=== PATIENT | female | born 1950 | race Caucasian/White ===

== ENCOUNTER 2020-06-16 06:02 | Outpatient (REF) | payer MEDICARE, SELFPAY ==
[2020-06-16 11:40] LABS: Hematocrit 42.4 % (37-47); Hemoglobin 14.1 g/dl (12.0-16.0); Mean Corpuscular HGB Conc 33.3 g/dl (31.0-35.0); Mean Corpuscular Hemoglobin 32.2 pg (27.0-33.0); Mean Corpuscular Volume 96.8 fL (80-98); Mean Platelet Volume 10.2 fL (9.4-12.3); Platelet Count 224 X10*3/uL (160-400); Red Blood Count 4.38 X10*6/uL (4.20-5.50); White Blood Count 5.4 X10*3/uL (4.8-10.8)
[2020-06-16 11:45] LABS: Glucose Urine UA NEG (NEG); Leukocyte Esterase Urine 1+ (NEG); Nitrite Urine NEG (NEG); Specific Gravity - Urine 1.015 (1.005-1.025); Urine Blood NEG (NEG); Urine Ketones NEG (NEG); Urine Protein NEG (NEG-TRACE)
[2020-06-16 11:49] LABS: Alanine Aminotransferase 30 U/L (0-31); Albumin Level 4.3 g/dL (3.5-5.0); Alkaline Phosphatase 81 U/L (39-117); Anion Gap 11 (12-20); Aspartate Amino Transferase 26 U/L (5-31); Bilirubin Total 0.7 mg/dL (0.0-1.0); Blood Urea Nitrogen 16 mg/dL (9-16); Calcium 9.3 mg/dL (8.4-10.2); Carbon Dioxide 33 mmol/L (22-29); Chloride 104 mmol/L (96-108); Cholesterol 214 mg/dL; Estimated Glomerular Filt Rate > 60; Glucose Fasting 99 mg/dL (60-99); HDL Cholesterol 48 mg/dL; LDL Cholesterol Calculated 121 mg/dl; Potassium 4.1 mmol/L (3.3-5.1); Sodium 144 mmol/L (135-145); Total Protein 6.6 g/dL (6.5-8.0); Triglycerides 226 mg/dL
[2020-06-16 11:54] LABS: Appearance Urine CLEAR; Color Urine YELLOW
[2020-06-16 12:02] LABS: Mucus Urine 1+ /LPF; RBC Urine 0 /HPF (0); Renal Epithelial Cells Urine 1+ /LPF; Squamous Epithelial Cell Urine 1+ /LPF
[2020-06-16 12:03] LABS: TSH reflex Free T4 0.78 uIU/mL (0.32-4.0)
== END 2020-06-16 06:03 | disposition home or self-care (01) ==
LOC: HO.HMGCLDS 06:02
PROVIDERS: PCP Internal Medicine; Visit Provider Internal Medicine
DX: Z00.00 Encounter for general adult medical examination without abnormal findings (principal); E78.5 Hyperlipidemia, unspecified
CPT/HCPCS: 36415; 80053; 80061; 81001; 84443; 85027

== ENCOUNTER 2020-07-11 07:19 | Outpatient (REF) | payer MEDICARE, SELFPAY ==
--- NOTE | ~2020-07-11 | MM_ITS ---
EXAMINATION: MM SCREENING DIGITAL BREAST TOMOSYNTHESIS, BILATERAL CLINICAL INFORMATION: Screening. Asymptomatic. The lifetime risk of breast cancer based on the Tyrer-Cuzick Model is 3%. COMPARISON: Mammography: 11/17/2018, 09/06/2017, 06/11/2016 TECHNIQUE: Digital breast tomosynthesis is performed in both the craniocaudal and mediolateral oblique views along with computer-aided detection (CAD). Synthesized 2D images are generated from the tomosynthesis. FINDINGS: There are scattered areas of fibroglandular density (ACR BI-RADS breast composition Category b). There are no significant masses, abnormal calcifications, or other abnormalities. Parenchymal pattern is similar to prior studies. There is no developing density. The axilla and skin contours are unremarkable. MM/MM tomosynthesis screening BI IMPRESSION: No mammographic evidence of malignancy. ASSESSMENT: BI-RADS 1: Negative RECOMMENDATION: Routine annual mammography screening. This patient's information was entered into a reminder system with a target due date for their next mammogram.
== END 2020-07-11 07:20 | disposition home or self-care (01) ==
LOC: HO.MAMMO 07:19
PROVIDERS: PCP Internal Medicine; Visit Provider Internal Medicine
DX: Z12.31 Encounter for screening mammogram for malignant neoplasm of breast (principal)
CPT/HCPCS: 77063; 77067

== ENCOUNTER 2020-12-21 06:11 | Outpatient (REF) | payer MEDICARE, SELFPAY ==
[2020-12-21 11:32] LABS: Appearance Urine CLEAR; Color Urine YELLOW; Glucose Urine UA NEG (NEG); Leukocyte Esterase Urine 1+ (NEG); Nitrite Urine NEG (NEG); Urine Blood NEG (NEG); Urine Ketones NEG (NEG); Urine Protein NEG (NEG-TRACE)
[2020-12-21 11:54] LABS: Alanine Aminotransferase 23 U/L (0-31); Albumin Level 4.7 g/dL (3.5-5.0); Alkaline Phosphatase 88 U/L (39-117); Anion Gap 14 (12-20); Aspartate Amino Transferase 27 U/L (5-31); Bilirubin Total 1.1 mg/dL (0.0-1.0); Blood Urea Nitrogen 18 mg/dL (9-16); Calcium 9.8 mg/dL (8.4-10.2); Carbon Dioxide 29 mmol/L (22-29); Chloride 103 mmol/L (96-108); Cholesterol 206 mg/dL; Estimated Glomerular Filt Rate > 60; Glucose Fasting 93 mg/dL (60-99); HDL Cholesterol 54 mg/dL; LDL Cholesterol Calculated 129 mg/dl; Potassium 4.4 mmol/L (3.3-5.1); Sodium 142 mmol/L (135-145); Total Protein 7.3 g/dL (6.5-8.0); Triglycerides 117 mg/dL
[2020-12-21 12:16] LABS: WBC Clumps Urine NOTED
[2020-12-21 12:20] LABS: RBC Urine 0-2 /HPF (0); Renal Epithelial Cells Urine 1+ /LPF; Squamous Epithelial Cell Urine TRACE /LPF
== END 2020-12-21 06:12 | disposition home or self-care (01) ==
LOC: HO.HMGCLDS 06:11
PROVIDERS: PCP Internal Medicine; Visit Provider Internal Medicine
DX: E78.5 Hyperlipidemia, unspecified (principal); I10 Essential (primary) hypertension
CPT/HCPCS: 36415; 80053; 80061; 81001

== ENCOUNTER 2021-01-30 14:50 | Outpatient (REF) | payer MEDICARE, SELFPAY ==
--- NOTE | ~2021-01-30 | MM_ITS ---
EXAMINATION: BONE DENSITOMETRY CLINICAL INDICATION: Asymptomatic menopausal state. COMPARISON: Baseline BD dated 08/29/2011. TECHNIQUE: Using a Efficiency Exchange DXA System (software version: 13.1) manufactured by [employer], dual-energy x-ray absorptiometry was performed of the lumbar spine and left hip. The images are of good technical quality. Summary results are attached. FINDINGS: AP SPINE L1-L4: Current: BMD 1.021 g/cm2, Z-score 0.9, T-score -1.3, osteopenia, 0.4% increase from baseline (<5% change is not significant). Baseline: BMD 1.017 g/cm2. LEFT FEMUR, NECK: Current: BMD 0.655 g/cm2, Z-score -0.6, T-score -2.8, osteoporosis. Baseline: BMD 0.690 g/cm2. LEFT FEMUR, TOTAL: Current: BMD 0.717 g/cm2, Z-score -0.4, T-score -2.3, osteopenia, 3.4% decrease from baseline (<5% change is not significant). Baseline: BMD 0.742 g/cm2. IDENTIFIED RISK FACTORS: Menopause, hysterectomy, bilateral oophorectomy. HISTORY OF FRACTURE: None listed. MEDICATIONS: Vitamin D. MM/XR DEXA axial skeleton IMPRESSION: 1. DIAGNOSIS: Osteoporosis based on the lowest T-score value of -2.8 in the femoral neck applying World Health Organization criteria. 2. 10-YEAR FRACTURE RISK PREDICTION, FRAX: According to the guidelines, FRAX calculation should only be performed on patients in the osteopenia bone density category. 3. Treatment Recommendations: NOF guidelines recommend consideration for treatment in postmenopausal women and men age 50 and older presenting with the following: -A hip or vertebral (clinical or morphometric) fracture. -T-score less than or equal to -2.5 at the femoral neck or spine after appropriate evaluation to exclude secondary causes. -Low bone mass at the hip or spine and a 10-year fracture probability by FRAX of greater than or equal to 3% for hip fracture or greater than or equal to 20% for major osteoporotic fracture based on the [place] adapted WHO algorithm. 4. Other Recommendations: All treatment decisions require clinical judgment and consideration of individual patient factors, including patient preferences, comorbidities, previous drug use, risk factors not captured in the FRAX model (e.g. frailty, falls, vitamin D deficiency, increased bone turnover, interval significant decline in bone density) and possible under or overestimation of fracture risk by FRAX. Additional medical evaluation for secondary cause of low bone mineral density may be appropriate. FUTURE SCAN RECOMMENDATION: People with diagnosed cases of osteoporosis or at high risk for fracture should have regular bone mineral density tests. For patients eligible for Medicare, routine testing is allowed once every 2 years. The testing frequency can be increased to one year for patients who have rapidly progressing disease, those who are receiving or discontinuing medical therapy to restore bone mass, or have additional risk factors.
== END 2021-01-30 14:51 | disposition home or self-care (01) ==
LOC: HO.MAMMO 14:50
PROVIDERS: Visit Provider Internal Medicine
DX: Z13.820 Encounter for screening for osteoporosis (principal); M81.0 Age-related osteoporosis without current pathological fracture; Z78.0 Asymptomatic menopausal state; Z90.722 Acquired absence of ovaries, bilateral; Z79.899 Other long term (current) drug therapy
CPT/HCPCS: 77080

== ENCOUNTER 2021-03-11 09:03 | Outpatient (REF) | payer MEDICARE, SELFPAY ==
[2021-03-11 09:44] LABS: Binax Internal Control QC Valid; Binax Lot number: 9864; Binax Now Covid-19 Ag Negative (Negative)
== END 2021-03-11 09:04 | disposition home or self-care (01) ==
LOC: HO.LAB 09:03
PROVIDERS: Visit Provider Internal Medicine
DX: Z20.822 Contact with and (suspected) exposure to COVID-19 (principal)
CPT/HCPCS: 36415; C9803

== ENCOUNTER 2021-06-21 06:06 | Outpatient (REF) | payer MEDICARE, SELFPAY ==
[2021-06-21 11:47] LABS: Alanine Aminotransferase 15 U/L (0-31); Albumin Level 4.4 g/dL (3.5-5.0); Alkaline Phosphatase 78 U/L (39-117); Anion Gap 14 (12-20); Aspartate Amino Transferase 20 U/L (5-31); Bilirubin Total 0.8 mg/dL (0.0-1.0); Blood Urea Nitrogen 15 mg/dL (9-16); Calcium 9.8 mg/dL (8.4-10.2); Carbon Dioxide 29 mmol/L (22-29); Chloride 103 mmol/L (96-108); Cholesterol 259 mg/dL; Estimated Glomerular Filt Rate > 60; Glucose Fasting 104 mg/dL (60-99); HDL Cholesterol 52 mg/dL; LDL Cholesterol Calculated 176 mg/dl; Potassium 4.2 mmol/L (3.3-5.1); Sodium 142 mmol/L (135-145); Total Protein 6.9 g/dL (6.5-8.0); Triglycerides 155 mg/dL; Vitamin D 25-OH Total 36.7 ng/mL (>30)
== END 2021-06-21 06:07 | disposition home or self-care (01) ==
LOC: HO.HMGCLDS 06:06
PROVIDERS: Visit Provider Internal Medicine
DX: E55.9 Vitamin D deficiency, unspecified (principal); E78.5 Hyperlipidemia, unspecified; I10 Essential (primary) hypertension
CPT/HCPCS: 36415; 80053; 80061; 82306

== ENCOUNTER 2021-07-12 07:34 | Outpatient (REF) | payer MEDICARE, SELFPAY ==
--- NOTE | ~2021-07-12 | MM_ITS ---
EXAMINATION: MM SCREENING DIGITAL BREAST TOMOSYNTHESIS, BILATERAL CLINICAL INFORMATION: Screening. Asymptomatic. The lifetime risk of breast cancer based on the Tyrer-Cuzick Model is 3.0%. COMPARISON: Mammography: July 11, 2020 and studies dating back to January 11, 2014 TECHNIQUE: Digital breast tomosynthesis is performed in both the craniocaudal and mediolateral oblique views along with computer-aided detection (CAD). Synthesized 2D images are generated from the tomosynthesis. FINDINGS: There are scattered areas of fibroglandular density (ACR BI-RADS breast composition Category b). There are no significant masses, abnormal calcifications, or other abnormalities. MM/MM tomosynthesis screening BI IMPRESSION: There are no significant changes from prior study. ASSESSMENT: BI-RADS 1: Negative RECOMMENDATION: Routine annual mammography screening. This patient's information was entered into a reminder system with a target due date for their next mammogram.
== END 2021-07-12 07:35 | disposition home or self-care (01) ==
LOC: HO.MAMMO 07:34
PROVIDERS: Visit Provider Internal Medicine
DX: Z12.31 Encounter for screening mammogram for malignant neoplasm of breast (principal)
CPT/HCPCS: 77063; 77067

== ENCOUNTER 2021-09-20 06:06 | Outpatient (REF) | payer MEDICARE, SELFPAY ==
[2021-09-20 11:42] LABS: Cholesterol 252 mg/dL; HDL Cholesterol 57 mg/dL; LDL Cholesterol Calculated 179 mg/dl; Triglycerides 81 mg/dL
== END 2021-09-20 06:07 | disposition home or self-care (01) ==
LOC: HO.HMGCLDS 06:06
PROVIDERS: Visit Provider Internal Medicine
DX: E78.5 Hyperlipidemia, unspecified (principal)
CPT/HCPCS: 36415; 80061

== ENCOUNTER 2021-11-23 06:14 | Outpatient (REF) | payer MEDICARE, SELFPAY ==
[2021-11-23 11:25] LABS: Appearance Urine Clear; Color Urine Yellow; Glucose Urine UA Negative (Negative); Leukocyte Esterase Urine Moderate (2+) (Negative); Nitrite Urine Negative (Negative); Specific Gravity - Urine 1.015 (1.005-1.025); UMIC TRIGGER UACC YES; Urine Blood Negative (Negative); Urine Ketones Negative (Negative); Urine Protein Negative (Neg-Trace)
[2021-11-23 11:31] LABS: Bacteria Urine None Seen (None Seen); Hyaline Casts Urine 0-2 /LPF (0-2); RBC Urine 0-2 /HPF (0-2); Squamous Epithelial Cell Urine 0-2 /HPF (0-2); UACC Culture Trigger YES
== END 2021-11-23 06:15 | disposition home or self-care (01) ==
LOC: HO.HMGCLDS 06:14
PROVIDERS: PCP Internal Medicine; Visit Provider Internal Medicine
DX: N89.8 Other specified noninflammatory disorders of vagina (principal); R82.90 Unspecified abnormal findings in urine
CPT/HCPCS: 81001; 87086

== ENCOUNTER 2021-12-21 06:07 | Outpatient (REF) | payer MEDICARE, SELFPAY ==
[2021-12-21 11:42] LABS: Hematocrit 44.7 % (37.0-47.0); Hemoglobin 15.1 g/dl (12.0-16.0); Mean Corpuscular HGB Conc 33.8 g/dl (31.0-35.0); Mean Corpuscular Hemoglobin 32.5 pg (27.0-33.0); Mean Corpuscular Volume 96.1 fL (80.0-98.0); Mean Platelet Volume 10.6 fL (9.4-12.3); Platelet Count 189 X10*3/uL (160-400); Red Blood Count 4.65 X10*6/uL (4.20-5.50); Red Cell Distribution Width 11.8 % (11.0-16.0); White Blood Count 5.4 X10*3/uL (4.8-10.8)
[2021-12-21 12:23] LABS: Alanine Aminotransferase 13 U/L (0-31); Albumin Level 4.5 g/dL (3.5-5.0); Alkaline Phosphatase 80 U/L (39-117); Anion Gap 14 (12-20); Aspartate Amino Transferase 20 U/L (5-31); Bilirubin Total 0.7 mg/dL (0.0-1.0); Blood Urea Nitrogen 17 mg/dL (9-16); Calcium 9.6 mg/dL (8.4-10.2); Carbon Dioxide 31 mmol/L (22-29); Chloride 102 mmol/L (96-108); Cholesterol 215 mg/dL; Estimated Glomerular Filt Rate > 60; Glucose Fasting 102 mg/dL (60-99); HDL Cholesterol 58 mg/dL; LDL Cholesterol Calculated 138 mg/dl; Potassium 4.2 mmol/L (3.3-5.1); Sodium 143 mmol/L (135-145); Total Protein 6.9 g/dL (6.5-8.0); Triglycerides 99 mg/dL
[2021-12-21 12:24] LABS: TSH reflex Free T4 1.22 uIU/mL (0.32-4.0)
== END 2021-12-21 06:08 | disposition home or self-care (01) ==
LOC: HO.HMGCLDS 06:07
PROVIDERS: PCP Internal Medicine; Visit Provider Internal Medicine
DX: E55.9 Vitamin D deficiency, unspecified (principal); E78.5 Hyperlipidemia, unspecified; I10 Essential (primary) hypertension; M81.0 Age-related osteoporosis without current pathological fracture
CPT/HCPCS: 36415; 80053; 80061; 84443; 85027

== ENCOUNTER 2022-01-18 15:27 | Outpatient (REF) | payer MEDICARE, SELFPAY ==
--- NOTE | ~2022-01-18 | US_ITS ---
EXAMINATION: US PELVIS LIMITED (BLADDER) CLINICAL INFORMATION: Retention of urine, unspecified. COMPARISON: None TECHNIQUE: Real-time imaging of the bladder. FINDINGS: BLADDER: Well distended and normal. Bilateral ureteral jets are demonstrated. Prevoid bladder volume is 491 mL. There is no postvoid residual. US/US bladder IMPRESSION: No significant post void residual.
== END 2022-01-18 15:28 | disposition home or self-care (01) ==
LOC: HO.HMGCX 15:27
PROVIDERS: PCP Internal Medicine; Visit Provider Internal Medicine
DX: R33.9 Retention of urine, unspecified (principal)
CPT/HCPCS: 76857

== ENCOUNTER 2022-02-27 13:42 | Outpatient (REF) | payer MEDICARE, SELFPAY ==
[2022-02-27 16:48] LABS: Anion Gap 12 (12-20); Blood Urea Nitrogen 16 mg/dL (9-16); Calcium 9.9 mg/dL (8.4-10.2); Carbon Dioxide 31 mmol/L (22-29); Chloride 102 mmol/L (96-108); Estimated Glomerular Filt Rate > 60; Glucose Random 73 mg/dL (60-115); Magnesium 2.1 mg/dL (1.6-2.6); Potassium 4.1 mmol/L (3.3-5.1); Sodium 141 mmol/L (135-145)
[2022-02-27 17:24] LABS: Folate 17.1 ng/mL (> or = 4.0); Vitamin B12 555 pg/mL (200-900)
== END 2022-02-27 13:43 | disposition home or self-care (01) ==
LOC: HO.HMGCLDS 13:42
PROVIDERS: PCP Internal Medicine; Visit Provider Internal Medicine
DX: I10 Essential (primary) hypertension (principal)
CPT/HCPCS: 36415; 80048; 82607; 82746; 83735

== ENCOUNTER 2022-06-07 15:35 | Emergency (ER) | payer MEDICARE, SELFPAY ==
--- NOTE | ~2022-06-07 | CT_ITS ---
EXAMINATION: CT ABDOMEN AND PELVIS WITH CONTRAST CLINICAL INFORMATION: Abdominal pain COMPARISON: None available. TECHNIQUE: Multidetector volumetric images were obtained from the superior aspect of the liver through the pubic symphysis following administration 85 mL of Omnipaque 350 intravenous contrast. Sagittal and coronal reformatted images were obtained on the technologist's workstation. Oral contrast: Yes This CT examination was performed using dose optimization techniques as appropriate, variously including the following: *Automated exposure control *Adjustment of mA and/or kV according to patient size (this includes techniques or standardized protocols for targeted exams where dose is matched to indication/reason for exam; i.e. extremities or head) *Use of iterative reconstruction technique DLP: 309 mGy-cm FINDINGS: LUNG BASES: The visualized lung bases are unremarkable. LIVER, GALLBLADDER, AND BILIARY TREE: The liver is normal in size, shape, and attenuation. No focal hepatic lesion or biliary ductal dilatation is present. The gallbladder is unremarkable with no evidence of radiopaque gallstones, gallbladder wall thickening, or obvious pericholecystic inflammatory changes. PANCREAS: Unremarkable. SPLEEN: Unremarkable. ADRENAL GLANDS: Unremarkable. KIDNEYS AND URETERS: The kidneys are normal in size, shape, and attenuation. No hydronephrosis, hydroureter, or calculi seen. No perinephric stranding. BLADDER: Unremarkable. GASTROINTESTINAL TRACT: The small and large bowel are unremarkable. The appendix is unremarkable. ABDOMINAL WALL: No significant hernia is appreciated. LYMPH NODES: Normal. VASCULAR: Unremarkable. PELVIC VISCERA: Unremarkable. OSSEOUS STRUCTURES: Degenerative changes of the spine. CT/CT abdomen pelvis w IV con IMPRESSION: Unremarkable exam. Fleischner guidelines were followed.
[2022-06-07 15:39] VITALS: BP 186/84; PULSE 80; RESP 18; TEMP 36.1; O2SAT 99; BMI 21.7
--- NOTE | 2022-06-07 15:40 | ED_ITS ---
HPI - General Adult General Chief complaint: Abdominal Pain <BENJAMIN Ramirez - Last Filed: 06/07/22 15:41> Stated complaint: Abdominal pain <BENJAMIN Ramirez - Last Filed: 06/07/22 15:41> Time Seen by Provider: 06/07/22 19:11 <BENJAMIN Ramirez - Last Filed: 06/07/22 15:41> Source: patient <Edward Bravo MD - Last Filed: 06/07/22 22:31> Mode of arrival: ambulatory <Edward Bravo MD - Last Filed: 06/07/22 22:31> Limitations: no limitations <Edward Bravo MD - Last Filed: 06/07/22 22:31> History of Present Illness HPI narrative: 71-year-old female presents with abdominal pain. The pain is located in left lower quadrant. Does not radiate. It is constant. There is no clear relieving or exacerbating features. It is not associated with nausea vomiting. It is a left associated with loose stool. There has been no blood in the stool. She denies any fevers or chills. The pain is currently at 3/10 but sometimes can get to as high as a 7/10. She was seen at an urgent care center was prescribed Augmentin twice a day for presumptive diverticulitis. She was instructed if her symptoms do not improve after 2 days she should seek attention in the emergency department. <Edward Bravo MD - Last Filed: 06/07/22 22:31> Related Data Home medications: Home Medications Medication Instructions Recorded Confirmed omega-3 fatty acids 1,000 mg 1,000 mg PO DAILY 06/20/20 02/27/22 capsule (Fish Oil Concentrate) red yeast rice PO 06/20/20 02/27/22 cholecalciferol (vitamin D3) 25 25 mcg PO DAILY 06/03/22 mcg (1,000 unit) capsule Previous Rx's Medication Instructions Recorded lisinopril 5 mg tablet 5 mg PO DAILY #90 tabs 06/26/21 omeprazole 20 mg capsule,delayed 20 mg PO BID #180 caps 06/26/21 release ezetimibe 10 mg tablet (Zetia) 10 mg PO DAILY #90 tabs 09/25/21 tolterodine 4 mg capsule,extended 4 mg PO DAILY #90 caps 02/21/22 release 24 hr amoxicillin 875 mg-potassium 1 tab PO BID 7 days #14 tabs 06/03/22 clavulanate 125 mg tablet <BENJAMIN Ramirez - Last Filed: 06/07/22 15:41> Allergies/adverse reactions: Allergies Allergy/AdvReac Type Severity Reaction Status Date / Time carrot [CARROT] Allergy Unknown CAME BACK Verified 06/03/22 15:16 + IN TESTING - ABLE TO EAT THEM egg [EGG] Allergy Unknown DIARRHEA Verified 06/03/22 15:16 petrolatum,white Allergy Unknown SKIN FELT Verified 06/03/22 15:16 [From Petroleum Jelly] LIKE IT WAS ON FIRE latex Allergy rash Verified 06/03/22 15:16 [id number] Reductase AdvReac Intermediate leg pain Verified 06/03/22 15:16 Inhibitor ENVIRONMENTAL Allergy Unknown ITCHY EYES Uncoded 12/27/21 10:33 percocet Allergy Unknown unknown Uncoded 12/27/21 10:33 <BENJAMIN Ramirez - Last Filed: 06/07/22 15:41> [facility] Past Medical History Medical History: Medical History Annual physical exam Dysplastic nevus GERD (gastroesophageal reflux disease) HTN (hypertension) Hyperlipidemia Normal breast exam Osteoporosis Postmenopausal Vitamin D deficiency <BENJAMIN Ramirez - Last Filed: 06/07/22 15:41> Surgical History: Surgical History H/O colonoscopy <BENJAMIN Ramirez - Last Filed: 06/07/22 15:41> Social History Social History: Social History Housing: House Alcohol intake: never Patient Tobacco Use Status: Never used Tobacco Smoked in Last 30 Days: No e-Cigarette/Vaping Use: Never Used Use of substances other than those prescribed or required for medical reasons: No Advance Directives: No Advance Directives Information Provided: No Current occupational status: employed Cognitive needs: No Hearing needs: No Vision needs: Yes <BENJAMIN Ramirez - Last Filed: 06/07/22 15:41> Physical Exam ED Vital Signs: Vital Signs - 24 hr 06/07/22 15:39 06/07/22 19:04 06/07/22 22:00 Temperature 96.9 F 98.8 F Pulse Rate 80 70 67 Respiratory Rate 18 16 16 Blood Pressure 186/84 H 169/83 H 139/74 Pulse Oximetry 99 100 97 Oxygen Delivery Method Room Air Room Air Room Air BMI result Body Mass Index 21.7 <BENJAMIN Ramirez - Last Filed: 06/07/22 15:41> Vital Signs - 24 hr 06/07/22 15:39 06/07/22 19:04 06/07/22 22:00 Temperature 96.9 F 98.8 F Pulse Rate 80 70 67 Respiratory Rate 18 16 16 Blood Pressure 186/84 H 169/83 H 139/74 Pulse Oximetry 99 100 97 Oxygen Delivery Method Room Air Room Air Room Air BMI result Body Mass Index 21.7 <Edward Bravo MD - Last Filed: 06/07/22 22:31> GEN: Well developed, no acute distress, alert, oriented HEENT: Normocephalic, atraumatic, normal external ears, nose appears normal, no oropharyngeal edema or exudates Eyes: Normal to appearance Neck: Supple, no lymphadenopathy Respiratory: Talks in complete sentences, no respiratory distress, clear to auscultation bilaterally Cardiovascular: Regular rate and rhythm, no murmurs rubs or gallops Abdomen: Left lower quadrant tenderness no rebound or guarding Back: No CVA tenderness Extremities: No clubbing cyanosis or edema Neurologic: No focal neurologic deficits, cranial nerves 2-12 intact, strength is 5/5 bilaterally, gait normal Skin: No rash <Edward Bravo MD - Last Filed: 06/07/22 22:31> Course Course Course Narrative: RME performed by Giulia Abarca PA-C. Patient is a 71 year old assigned female at presenting to the emergency department with abdominal pain. Labs and imaging ordered. Patient placed back in the waiting room pending room av ailability and results. <BENJAMIN Ramirez - Last Filed: 06/07/22 15:41> Reevaluation(s) Reevaluation #1: Currently awaiting CT scan results. Lab test and urinalysis. <Edward Bravo MD - Last Filed: 06/07/22 22:31> Time: 20:27 <Edward Bravo MD - Last Filed: 06/07/22 22:31> Reevaluation #2: CT scan results were in. There is no evidence of inflammatory or infectious process. Patient will stop oral antibiotics, start probiotic and fiber supplementation. Patient will follow-up with the primary care provider sometime this week and return for any worsening or concerning symptoms. <dEward Bravo MD - Last Filed: 06/07/22 22:31> Time: 22:30 <Edward Bravo MD - Last Filed: 06/07/22 22:31> Medications Administered Discontinued Medications Generic Name Dose Route Start Last Admin Trade Name Freq PRN Reason Stop Dose Admin Iohexol 100 ml 06/07/22 19:42 06/07/22 19:42 Iohexol 350 Mg/Ml 100 Ml Infus..Btl IV 06/07/22 19:43 85 ml ONCE ONE Administration <BENJAMIN Ramirez - Last Filed: 06/07/22 15:41> Medications Administered Discontinued Medications Generic Name Dose Route Start Last Admin Trade Name Freq PRN Reason Stop Dose Admin Iohexol 100 ml 06/07/22 19:42 06/07/22 19:42 Iohexol 350 Mg/Ml 100 Ml Infus..Btl IV 06/07/22 19:43 85 ml ONCE ONE Administration <Edward Bravo MD - Last Filed: 06/07/22 22:31> Medical Decision Making Medical Decision Making [facility] Narrative: Patient presents with left lower quadrant abdominal pain. Broad differe ntial diagnosis been considered. Patient will have a CT scan, laboratory analysis, analgesics as needed. Re-evaluate patient <Edward Bravo MD - Last Filed: 06/07/22 22:31> Differential Diagnosis Differential Diagnoses: The differential diagnosis associated with the presentation includes (Div erticulitis, colitis, IBS, IBD, perforation, abscess, epiploic appendagitis, mesenteric adenitis, gastroenteritis, peptic ulcer, cholecystitis, pancreatitis) <Edward Bravo MD - Last Filed: 06/07/22 22:31> Acute abdominal pain, diverticulosis <Edward Bravo MD - Last Filed: 06/07/22 22:31> Admission/Observation Consideration of admission/observation: Escalation of care including admission/observation considered <Edward medina MD - Last Filed: 06/07/22 22:31> Lab Data [facility] Lab Attestation statement: I reviewed the patient's lab results. <Edward Bravo MD - Last Filed: 06/07/22 22:31> Result Diagrams: 06/07/22 15:47 06/07/22 15:47 <BENJAMIN Ramirez - Last Filed: 06/07/22 15:41> Labs: Lab Results 06/07/22 06/07/22 06/07/22 Range/Units 15:47 15:47 15:47 WBC 5.9 (4.8-10.8) X10*3/uL RBC 4.42 (4.20-5.50) X10*6/uL Hgb 14.7 (12.0-16.0) g/dl Hct 41.8 (37.0-47.0) % MCV 94.6 (80.0-98.0) fL MCH 33.3 H (27.0-33.0) pg MCHC 35.2 H (31.0-35.0) g/dl RDW 11.8 (11.0-16.0) % Plt Count 179 (160-400) X10*3/uL MPV 10.0 (9.4-12.3) fL Immature Gran % (Auto) 0.2 (0.0-0.4) % Neut % (Auto) 63.2 (45-73) % Lymph % (Auto) 26.1 (20-40) % [place] % (Auto) 8.1 (2-11) % Eos % (Auto) 1.7 (0-4) % Baso % (Auto) 0.7 (0-2) % Lymph # (Auto) 1.5 (1.2-4.9) X10*3/uL [place] # (Auto) 0.5 (0.1-1.2) X10*3/uL Eos # (Auto) 0.1 (0.0-0.4) X10*3/uL Baso # (Auto) 0.0 (0.0-0.2) X10*3/uL Abs Immat Gran (auto) 0.01 (0.00-0.03) X10*3/uL Absolute Neuts (auto) 3.7 (2.0-8.3) x10*3/uL Absolute Nucleated RBC 0.000 (0.0-0.012) X10*3/uL Nucleated RBC % (auto) 0.0 (0.0-0.2) /100WBC Sodium 144 (135-145) mmol/L Potassium 4.1 (3.3-5.1) mmol/L Chloride 104 (96-108) mmol/L Carbon Dioxide 28 (22-29) mmol/L Anion Gap 16 (12-20) BUN 12 (9-16) mg/dL Creatinine 0.63 (0.5-1.4) mg/dL Estim Creat Clear Calc 52.1 Estimated GFR > 60 Random Glucose 91 (60-115) mg/dL Calcium 9.6 (8.4-10.2) mg/dL Magnesium 2.0 (1.6-2.6) mg/dL Total Bilirubin 0.7 (0.0-1.0) mg/dL AST 22 (5-31) U/L ALT 17 (0-31) U/L Alkaline Phosphatase 77 (39-117) U/L Total Protein 6.9 (6.5-8.0) g/dL Albumin 4.6 (3.5-5.0) g/dL Urine Color Urine Appearance Urine pH (5.0-9.0) Ur Specific O'Brien (1.005-1.025) Urine Protein (Neg-Trace) mg/dL Urine Glucose (UA) (Negative) mg/dL Urine Ketones (Negative) mg/dL Urine Blood (Negative) Urine Nitrite (Negative) Ur Leukocyte Esterase (Negative) COVID-19 (AJITH) Negative (Negative) COVID-19 Clin Com See Note 06/07/22 Range/Units 19:52 WBC (4.8-10.8) X10*3/uL RBC (4.20-5.50) X10*6/uL Hgb (12.0-16.0) g/dl Hct (37.0-47.0) % MCV (80.0-98.0) fL MCH (27.0-33.0) pg MCHC (31.0-35.0) g/dl RDW (11.0-16.0) % Plt Count (160-400) X10*3/uL MPV (9.4-12.3) fL Immature Gran % (Auto) (0.0-0.4) % Neut % (Auto) (45-73) % Lymph % (Auto) (20-40) % [place] % (Auto) (2-11) % Eos % (Auto) (0-4) % Baso % (Auto) (0-2) % Lymph # (Auto) (1.2-4.9) X10*3/uL [place] # (Auto) (0.1-1.2) X10*3/uL Eos # (Auto) (0.0-0.4) X10*3/uL Baso # (Auto) (0.0-0.2) X10*3/uL Abs Immat Gran (auto) (0.00-0.03) X10*3/uL Absolute Neuts (auto) (2.0-8.3) x10*3/uL Absolute Nucleated RBC (0.0-0.012) X10*3/uL Nucleated RBC % (auto) (0.0-0.2) /100WBC Sodium (135-145) mmol/L Potassium (3.3-5.1) mmol/L Chloride (96-108) mmol/L Carbon Dioxide (22-29) mmol/L Anion Gap (12-20) BUN (9-16) mg/dL Creatinine (0.5-1.4) mg/dL Estim Creat Clear Calc Estimated GFR Random Glucose (60-115) mg/dL Calcium (8.4-10.2) mg/dL Magnesium (1.6-2.6) mg/dL Total Bilirubin (0.0-1.0) mg/dL AST (5-31) U/L ALT (0-31) U/L Alkaline Phosphatase (39-117) U/L Total Protein (6.5-8.0) g/dL Albumin (3.5-5.0) g/dL Urine Color Yellow Urine Appearance Clear Urine pH 7.5 (5.0-9.0) Ur Specific O'Brien 1.025 (1.005-1.025) Urine Protein Negative (Neg-Trace) mg/dL Urine Glucose (UA) Negative (Negative) mg/dL Urine Ketones Negative (Negative) mg/dL Urine Blood Negative (Negative) Urine Nitrite Negative (Negative) Ur Leukocyte Esterase Negative (Negative) COVID-19 (AJITH) (Negative) COVID-19 Clin Com <BENJAMIN Ramirez - Last Filed: 06/07/22 15:41> Lab Results 06/07/22 06/07/22 06/07/22 Range/Units 15:47 15:47 15:47 WBC 5.9 (4.8-10.8) X10*3/uL RBC 4.42 (4.20-5.50) X10*6/uL Hgb 14.7 (12.0-16.0) g/dl Hct 41.8 (37.0-47.0) % MCV 94.6 (80.0-98.0) fL MCH 33.3 H (27.0-33.0) pg MCHC 35.2 H (31.0-35.0) g/dl RDW 11.8 (11.0-16.0) % Plt Count 179 (160-400) X10*3/uL MPV 10.0 (9.4-12.3) fL Immature Gran % (Auto) 0.2 (0.0-0.4) % Neut % (Auto) 63.2 (45-73) % Lymph % (Auto) 26.1 (20-40) % [place] % (Auto) 8.1 (2-11) % Eos % (Auto) 1.7 (0-4) % Baso % (Auto) 0.7 (0-2) % Lymph # (Auto) 1.5 (1.2-4.9) X10*3/uL [place] # (Auto) 0.5 (0.1-1.2) X10*3/uL Eos # (Auto) 0.1 (0.0-0.4) X10*3/uL Baso # (Auto) 0.0 (0.0-0.2) X10*3/uL Abs Immat Gran (auto) 0.01 (0.00-0.03) X10*3/uL Absolute Neuts (auto) 3.7 (2.0-8.3) x10*3/uL Absolute Nucleated RBC 0.000 (0.0-0.012) X10*3/uL Nucleated RBC % (auto) 0.0 (0.0-0.2) /100WBC Sodium 144 (135-145) mmol/L Potassium 4.1 (3.3-5.1) mmol/L Chloride 104 (96-108) mmol/L Carbon Dioxide 28 (22-29) mmol/L Anion Gap 16 (12-20) BUN 12 (9-16) mg/dL Creatinine 0.63 (0.5-1.4) mg/dL Estim Creat Clear Calc 52.1 Estimated GFR > 60 Random Glucose 91 (60-115) mg/dL Calcium 9.6 (8.4-10.2) mg/dL Magnesium 2.0 (1.6-2.6) mg/dL Total Bilirubin 0.7 (0.0-1.0) mg/dL AST 22 (5-31) U/L ALT 17 (0-31) U/L Alkaline Phosphatase 77 (39-117) U/L Total Protein 6.9 (6.5-8.0) g/dL Albumin 4.6 (3.5-5.0) g/dL Urine Color Urine Appearance Urine pH (5.0-9.0) Ur Specific O'Brien (1.005-1.025) Urine Protein (Neg-Trace) mg/dL Urine Glucose (UA) (Negative) mg/dL Urine Ketones (Negative) mg/dL Urine Blood (Negative) Urine Nitrite (Negative) Ur Leukocyte Esterase (Negative) COVID-19 (AJITH) Negative (Negative) COVID-19 Clin Com See Note 06/07/22 Range/Units 19:52 WBC (4.8-10.8) X10*3/uL RBC (4.20-5.50) X10*6/uL Hgb (12.0-16.0) g/dl Hct (37.0-47.0) % MCV (80.0-98.0) fL MCH (27.0-33.0) pg MCHC (31.0-35.0) g/dl RDW (11.0-16.0) % Plt Count (160-400) X10*3/uL MPV (9.4-12.3) fL Immature Gran % (Auto) (0.0-0.4) % Neut % (Auto) (45-73) % Lymph % (Auto) (20-40) % [place] % (Auto) (2-11) % Eos % (Auto) (0-4) % Baso % (Auto) (0-2) % Lymph # (Auto) (1.2-4.9) X10*3/uL [place] # (Auto) (0.1-1.2) X10*3/uL Eos # (Auto) (0.0-0.4) X10*3/uL Baso # (Auto) (0.0-0.2) X10*3/uL Abs Immat Gran (auto) (0.00-0.03) X10*3/uL Absolute Neuts (auto) (2.0-8.3) x10*3/uL Absolute Nucleated RBC (0.0-0.012) X10*3/uL Nucleated RBC % (auto) (0.0-0.2) /100WBC Sodium (135-145) mmol/L Potassium (3.3-5.1) mmol/L Chloride (96-108) mmol/L Carbon Dioxide (22-29) mmol/L Anion Gap (12-20) BUN (9-16) mg/dL Creatinine (0.5-1.4) mg/dL Estim Creat Clear Calc Estimated GFR Random Glucose (60-115) mg/dL Calcium (8.4-10.2) mg/dL Magnesium (1.6-2.6) mg/dL Total Bilirubin (0.0-1.0) mg/dL AST (5-31) U/L ALT (0-31) U/L Alkaline Phosphatase (39-117) U/L Total Protein (6.5-8.0) g/dL Albumin (3.5-5.0) g/dL Urine Color Yellow Urine Appearance Clear Urine pH 7.5 (5.0-9.0) Ur Specific O'Brien 1.025 (1.005-1.025) Urine Protein Negative (Neg-Trace) mg/dL Urine Glucose (UA) Negative (Negative) mg/dL Urine Ketones Negative (Negative) mg/dL Urine Blood Negative (Negative) Urine Nitrite Negative (Negative) Ur Leukocyte Esterase Negative (Negative) COVID-19 (AJITH) (Negative) COVID-19 Clin Com <Edward Barvo MD - Last Filed: 06/07/22 22:31> Independent Interpretation I performed an independent interpretation of an: CT Scan (Diverticulosis without evidence of diverticulitis) <Edward Bravo MD - Last Filed: 06/07/22 22:31> Radiology Impression Discussion of test interpretation with radiology: I have reviewed the radiologist's reading. ( CT/CT abdomen pelvis w IV con IMPRESSION: Unremarkable exam. Fleischner guidelines were followed. Dictated By:Tash Ruiz MDSigned By:<Electronically signed by Tash Ruiz MD in [place]>06/07/[id number]) <Edward Bravo MD - Last Filed: 06/07/22 22:31> Tests considered The following testing was considered but not selected: Ultrasound of the abdomen <Edward Bravo MD - Last Filed: 06/07/22 22:31> Prescription Management I considered prescription management with: Pain Medication and Antibiotic <Edward Bravo MD - Last Filed: 06/07/22 22:31> Discharge Plan Discharge Clinical Impression: Abdominal pain <BENJAMIN Ramirez - Last Filed: 06/07/22 15:41> Patient Disposition: Home, Self-Care <BENJAMIN Ramirez - Last Filed: 06/07/22 15:41> Instructions: Abdominal Pain (ED) <BENJAMIN Ramirez - Last Filed: 06/07/22 15:41> Additional Instructions: He received today with abdominal pain in the left lower quadrant. Your additionally noted to have loose stool. I am recommending fiber supplementation with something like Metamucil, Citrucel, Benefiber. Additionally, he could try rice and bananas. Keep yourself appropriately hydrated. He may also want to start a probiotic. Probiotics that I would recommend include acidophilus or lactobacillus. <BENJAMIN Ramirez - Last Filed: 06/07/22 15:41> Prescriptions: No Action ezetimibe [Zetia] 10 mg tablet 10 mg PO DAILY Qty: 90 3RF tolterodine 4 mg capsule,extended release 24hr 4 mg PO DAILY Qty: 90 3RF red yeast rice PO omega-3 fatty acids [Fish Oil Concentrate] 1,000 mg capsule 1,000 mg PO DAILY cholecalciferol (vitamin D3) 25 mcg (1,000 unit) capsule 25 mcg PO DAILY amoxicillin-pot clavulanate 875-125 mg tablet 1 tab PO BID 7 Days Qty: 14 0RF lisinopril 5 mg tablet 5 mg PO DAILY Qty: 90 3RF omeprazole 20 mg capsule,delayed release(/EC) 20 mg PO BID Qty: 180 3RF <BENJAMIN Ramirez - Last Filed: 06/07/22 15:41> Referrals: Sherie Sandoval MD [Primary Care Provider] - 3 days <BENJAMIN Ramirez - Last Filed: 06/07/22 15:41>
[2022-06-07 15:52] LABS: MANUAL DIFF FLAG NO
[2022-06-07 15:56] LABS: Basophils Percent Auto 0.7 % (0-2); Eosinophils Absolute Auto 0.1 X10*3/uL (0.0-0.4); Eosinophils Percent Auto 1.7 % (0-4); Hematocrit 41.8 % (37.0-47.0); Hemoglobin 14.7 g/dl (12.0-16.0); Imm Gran Abs Auto 0.01 X10*3/uL (0.00-0.03); Imm Gran Pct Auto 0.2 % (0.0-0.4); Lymphocytes Absolute Auto 1.5 X10*3/uL (1.2-4.9); Lymphocytes Percent Auto 26.1 % (20-40); Mean Corpuscular HGB Conc 35.2 g/dl (31.0-35.0); Mean Corpuscular Hemoglobin 33.3 pg (27.0-33.0); Mean Corpuscular Volume 94.6 fL (80.0-98.0); Monocytes Absolute Auto 0.5 X10*3/uL (0.1-1.2); Monocytes Percent Auto 8.1 % (2-11); Neutrophils Absolute Auto 3.7 x10*3/uL (2.0-8.3); Neutrophils Percent Auto 63.2 % (45-73); Platelet Count 179 X10*3/uL (160-400); Red Blood Count 4.42 X10*6/uL (4.20-5.50); Red Cell Distribution Width 11.8 % (11.0-16.0); White Blood Count 5.9 X10*3/uL (4.8-10.8)
[2022-06-07 16:09] LABS: Alanine Aminotransferase 17 U/L (0-31); Albumin Level 4.6 g/dL (3.5-5.0); Alkaline Phosphatase 77 U/L (39-117); Anion Gap 16 (12-20); Aspartate Amino Transferase 22 U/L (5-31); Bilirubin Total 0.7 mg/dL (0.0-1.0); Blood Urea Nitrogen 12 mg/dL (9-16); Calcium 9.6 mg/dL (8.4-10.2); Carbon Dioxide 28 mmol/L (22-29); Chloride 104 mmol/L (96-108); Creatinine Clr Calc Pharmacy 52.1; Estimated Glomerular Filt Rate > 60; Glucose Random 91 mg/dL (60-115); Potassium 4.1 mmol/L (3.3-5.1); Sodium 144 mmol/L (135-145); Total Protein 6.9 g/dL (6.5-8.0)
[2022-06-07 16:30] LABS: COVID-19 Test Negative (Negative); IDNOW Serial# 08D9AD1C
--- NOTE | 2022-06-07 18:36 | PC.NURSE ---
Patient complaint of left sided abdominal pain has been ongoing for approx 1 week was previously seen at urgent care placed on PO abx. reports loose stool AOx 4 neuros intact will CTM
--- NOTE | 2022-06-07 18:43 | PC.NURSE ---
Patient denies blood in stool or urine has LLQ abdominal pain worse with palpation no guarding noted BS quad x 4 will CTM
[2022-06-07 19:04] VITALS: BP 169/83; PULSE 70; RESP 16; O2SAT 100
[2022-06-07] MEDS: iohexoL 350 MG/ML 100 ML INFUS..BTL IV (19:42)
[2022-06-07 20:07] LABS: Appearance Urine Clear; Color Urine Yellow; Glucose Urine UA Negative (Negative); Leukocyte Esterase Urine Negative (Negative); Nitrite Urine Negative (Negative); PH 7.5 (5.0-9.0); Specific Gravity - Urine 1.025 (1.005-1.025); Urine Blood Negative (Negative); Urine Ketones Negative (Negative); Urine Protein Negative (Neg-Trace)
[2022-06-07 22:00] VITALS: BP 139/74; PULSE 67; RESP 16; TEMP 37.1; O2SAT 97
== END 2022-06-07 23:02 | disposition home or self-care (01) ==
PROVIDERS: Physician Assistant Medical; Emergency Provider Emergency Medicine; PCP Internal Medicine
DX: R10.32 Left lower quadrant pain (principal); I10 Essential (primary) hypertension; E78.5 Hyperlipidemia, unspecified; Z20.822 Contact with and (suspected) exposure to COVID-19; Z79.899 Other long term (current) drug therapy
CPT/HCPCS: 74177; 80053; 81003; 83735; 85025; 87635; 99284; Q9967

== ENCOUNTER 2022-06-15 09:59 | Outpatient (REF) | payer MEDICARE, SELFPAY ==
[2022-06-15 11:27] LABS: Leukocytes Stool Qualitative FEW: < 2/OIF (NEGATIVE)
[2022-06-15 12:30] LABS: Campylobacter Not Detected (Not Detect.); E. coli EAEC Not Detected (Not Detect.); E. coli EPEC Not Detected (Not Detect.); E. coli ETEC Not Detected (Not Detect.); E. coli STEC Not Detected (Not Detect.); Plesiomonas shigelloides Not Detected (Not Detect.); Salmonella Not Detected (Not Detect.); Vibrio Not Detected (Not Detect.); Vibrio Cholerae Not Detected (Not Detect.); Yersinia enterocolitica Not Detected (Not Detect.)
[2022-06-15 12:31] LABS: Adenovirus F 40/41 Not Detected (Not Detect.); Astrovirus Not Detected (Not Detect.); Cryptosporidium Not Detected (Not Detect.); Cyclospora cayetanensis Not Detected (Not Detect.); Entamoeba histolytica Not Detected (Not Detect.); Giardia lamblia Not Detected (Not Detect.); Norovirus GI/GII Not Detected (Not Detect.); Rotavirus A Not Detected (Not Detect.); Sapovirus Not Detected (Not Detect.); Shigella sp./EIEC Not Detected (Not Detect.)
[2022-06-15 12:41] LABS: CDiff Gene PCR NEGATIVE (Negative)
== END 2022-06-15 10:00 | disposition home or self-care (01) ==
LOC: HO.LNP 09:59
PROVIDERS: Visit Provider Internal Medicine
DX: R19.7 Diarrhea, unspecified (principal)
CPT/HCPCS: 87493; 87507; 89055

== ENCOUNTER 2022-06-20 06:04 | Outpatient (REF) | payer MEDICARE, SELFPAY ==
[2022-06-20 11:18] LABS: Urine Cytology See Pathology rpt
[2022-06-20 11:30] LABS: Appearance Urine Clear; Color Urine Yellow; Glucose Urine UA Negative (Negative); Leukocyte Esterase Urine Small (1+) (Negative); Nitrite Urine Negative (Negative); UMIC TRIGGER UA YES; Urine Blood Negative (Negative); Urine Ketones Negative (Negative); Urine Protein Negative (Neg-Trace)
[2022-06-20 11:44] LABS: MANUAL DIFF FLAG NO
[2022-06-20 11:45] LABS: Bacteria Urine None Seen (None Seen); Hyaline Casts Urine 0-2 /LPF (0-2); RBC Urine 0-2 /HPF (0-2); Squamous Epithelial Cell Urine 0-2 /HPF (0-2); WBC Urine 0-5 /HPF (0-5)
[2022-06-20 12:01] LABS: Alanine Aminotransferase 16 U/L (0-31); Albumin Level 4.5 g/dL (3.5-5.0); Alkaline Phosphatase 85 U/L (39-117); Anion Gap 14 (12-20); Aspartate Amino Transferase 21 U/L (5-31); Bilirubin Total 1.1 mg/dL (0.0-1.0); Blood Urea Nitrogen 10 mg/dL (9-16); Calcium 9.8 mg/dL (8.4-10.2); Carbon Dioxide 31 mmol/L (22-29); Chloride 103 mmol/L (96-108); Cholesterol 211 mg/dL; Estimated Glomerular Filt Rate > 60; Glucose Fasting 106 mg/dL (60-99); HDL Cholesterol 51 mg/dL; LDL Cholesterol Calculated 131 mg/dl; Potassium 4.5 mmol/L (3.3-5.1); Sodium 143 mmol/L (135-145); Total Protein 6.7 g/dL (6.5-8.0); Triglycerides 145 mg/dL
[2022-06-20 12:06] LABS: Basophils Absolute Auto 0.1 X10*3/uL (0.0-0.2); Basophils Percent Auto 1.1 % (0-2); Eosinophils Absolute Auto 0.1 X10*3/uL (0.0-0.4); Eosinophils Percent Auto 2.4 % (0-4); Hematocrit 44.7 % (37.0-47.0); Hemoglobin 15.3 g/dl (12.0-16.0); Imm Gran Abs Auto 0.01 X10*3/uL (0.00-0.03); Imm Gran Pct Auto 0.2 % (0.0-0.4); Lymphocytes Absolute Auto 1.4 X10*3/uL (1.2-4.9); Lymphocytes Percent Auto 31.4 % (20-40); Mean Corpuscular HGB Conc 34.2 g/dl (31.0-35.0); Mean Corpuscular Hemoglobin 32.8 pg (27.0-33.0); Mean Corpuscular Volume 95.9 fL (80.0-98.0); Mean Platelet Volume 10.7 fL (9.4-12.3); Monocytes Absolute Auto 0.4 X10*3/uL (0.1-1.2); Monocytes Percent Auto 8.1 % (2-11); Neutrophils Absolute Auto 2.6 x10*3/uL (2.0-8.3); Neutrophils Percent Auto 56.8 % (45-73); Platelet Count 196 X10*3/uL (160-400); Red Blood Count 4.66 X10*6/uL (4.20-5.50); White Blood Count 4.6 X10*3/uL (4.8-10.8)
[2022-06-20 12:18] LABS: Vitamin D 25-OH Total 58.3 ng/mL (>30)
== END 2022-06-20 06:05 | disposition home or self-care (01) ==
LOC: HO.HMGCLDS 06:04
PROVIDERS: PCP Internal Medicine; Visit Provider Internal Medicine
DX: Z00.00 Encounter for general adult medical examination without abnormal findings (principal); R31.29 Other microscopic hematuria; E55.9 Vitamin D deficiency, unspecified; E78.5 Hyperlipidemia, unspecified; I10 Essential (primary) hypertension
CPT/HCPCS: 36415; 80053; 80061; 81001; 82306; 84443; 85025; 88112

== ENCOUNTER 2022-07-11 06:06 | Outpatient (REF) | payer MEDICARE, SELFPAY ==
[2022-07-13 18:44] LABS: Immunoglobulin A 177 mg/dL (70-320)
[2022-07-15 17:18] LABS: Gliadin Deamidated IgA Ab <1.0 U/mL; Gliadin Deamidated IgG Ab <1.0 U/mL
[2022-07-17 14:24] LABS: Endomysial IgA Antibody Negative (Negative)
[2022-07-18 06:09] LABS: Transglutaminase Ab IgG <1.0 U/mL; Transglutaminase IgA <1.0 U/mL
== END 2022-07-11 06:07 | disposition home or self-care (01) ==
LOC: HO.HMGCLDS 06:06
PROVIDERS: PCP Internal Medicine; Visit Provider Internal Medicine
DX: R19.7 Diarrhea, unspecified (principal); R19.4 Change in bowel habit
CPT/HCPCS: 36415; 82784; 86231; 86258; 86364

== ENCOUNTER 2022-07-23 07:38 | Outpatient (REF) | payer MEDICARE, SELFPAY ==
--- NOTE | ~2022-07-23 | MM_ITS ---
EXAMINATION: MM SCREENING DIGITAL BREAST TOMOSYNTHESIS, BILATERAL CLINICAL INFORMATION: Screening. Asymptomatic. The lifetime risk of breast cancer based on the Tyrer-Cuzick Model is 3%. COMPARISON: Mammography: 07/12/2021, 07/11/2020, 11/17/2018 TECHNIQUE: Digital breast tomosynthesis is performed in both the craniocaudal and mediolateral oblique views along with computer-aided detection (CAD). Synthesized 2D images are generated from the tomosynthesis. FINDINGS: There are scattered areas of fibroglandular density (ACR BI-RADS breast composition Category b). Parenchymal pattern is similar to prior studies. There are scattered bilateral minor asymmetries similar to prior exams. No developing density or architectural abnormality. There are no significant masses, abnormal calcifications, or other abnormalities. The axilla are and skin contours are unremarkable. MM/MM tomosynthesis screening BI IMPRESSION: No mammographic evidence of malignancy. ASSESSMENT: BI-RADS 2: Benign RECOMMENDATION: Routine annual mammography screening. This patient's information was entered into a reminder system with a target due date for their next mammogram.
== END 2022-07-23 07:39 | disposition home or self-care (01) ==
LOC: HO.MAMMO 07:38
PROVIDERS: Visit Provider Internal Medicine
DX: Z12.31 Encounter for screening mammogram for malignant neoplasm of breast (principal)
CPT/HCPCS: 77063; 77067

== ENCOUNTER 2022-08-30 09:34 | Day surgery (SDC) | payer MEDICARE, SELFPAY ==
--- NOTE | 2022-08-29 12:59 | HO.ANESPROP2 ---
Documented by User: Gely Auguste NP 08/29/22 12:59 HPI - Anesthesia Eval Consult details Narrative: 72yo F for Colonoscopy PMFSH Active Problems Active Problems: All Active Problems (Updated 06/25/22 @ 10:30 by Sherie Sandoval MD) Diarrhea (Acute) Microscopic hematuria (Acute) Leg cramps (Acute) Urinary retention (Acute) Vaginal odor (Acute) Irritant dermatitis (Acute) Osteoporosis (Acute) Vitamin D deficiency (Acute) Postmenopausal (Acute) Normal breast exam (Acute) HTN (hypertension) (Acute) Dysplastic nevus (Acute) Hyperlipidemia (Acute) Annual physical exam (Acute) Past Medical History Medical History Annual physical exam Dysplastic nevus GERD (gastroesophageal reflux disease) HTN (hypertension) Hyperlipidemia Normal breast exam Osteoporosis Postmenopausal Vitamin D deficiency Surgical History Surgical History H/O colonoscopy Social History Social History Housing: House Alcohol intake: never Patient Tobacco Use Status: Never used Tobacco e-Cigarette/Vaping Use: Never Used Use of substances other than those prescribed or required for medical reasons: No Are you DNR?: No Advance Directives: No Advance Directives Information Provided: Yes Recently lost weight without trying: No Nutrition Risks: No Nutritional Risk Current occupational status: employed Cognitive needs: No Hearing needs: No Vision needs: Yes Meds Allergies Allergy/AdvReac Type Severity Reaction Status Date / Time carrot [CARROT] Allergy Unknown CAME BACK Verified 06/25/22 10:01 + IN TESTING - ABLE TO EAT THEM egg [EGG] Allergy Unknown DIARRHEA Verified 06/25/22 10:01 petrolatum,white Allergy Unknown SKIN FELT Verified 06/25/22 10:01 [From Petroleum Jelly] LIKE IT WAS ON FIRE erythromycin base Allergy Unknown Verified 08/29/22 14:05 latex Allergy rash Verified 06/25/22 10:01 Hidmtca-EMD-GfU Reductase AdvReac Intermediate leg pain Verified 06/25/22 10:01 Inhibitor ENVIRONMENTAL Allergy Unknown ITCHY EYES Uncoded 06/25/22 10:01 percocet Allergy Unknown Itching Uncoded 08/30/22 09:56 Home Medications Medication Instructions Recorded Confirmed Last Taken Type omega-3 fatty acids 1,000 mg 1,000 mg PO DAILY 06/20/20 06/25/22 Unknown History capsule (Fish Oil Concentrate) red yeast rice PO 06/20/20 06/25/22 Unknown History cholecalciferol (vitamin D3) 25 25 mcg PO DAILY 06/03/22 06/25/22 Unknown History mcg (1,000 unit) capsule Exam Exam Date and Time: August 29, 2022 125 Pertinent Lab Results Pertinent Lab Results: Laboratory Tests 06/20/22 06/20/22 06:14 06:14 WBC 4.6 L Hgb 15.3 Hct 44.7 Plt Count 196 Sodium 143 Potassium 4.5 Chloride 103 Carbon Dioxide 31 H BUN 10 Creatinine 0.72 Assessment and Plan Assessment Anesthesia Assessment: Chart Reviewed Documented by User: Fariba Bradley MD 08/30/22 10:49 PMFSH Past Medical History Medical History Annual physical exam Dysplastic nevus GERD (gastroesophageal reflux disease) HTN (hypertension) Hyperlipidemia Normal breast exam Osteoporosis Postmenopausal Vitamin D deficiency Family History Family history of problems with anesthesia: No Surgical History Surgical History H/O colonoscopy History of Problems with Anesthesia: No Social History Social History Housing: House Alcohol intake: never Patient Tobacco Use Status: Never used Tobacco e-Cigarette/Vaping Use: Never Used Use of substances other than those prescribed or required for medical reasons: No Are you DNR?: No Advance Directives: No Advance Directives Information Provided: Yes Recently lost weight without trying: No Nutrition Risks: No Nutritional Risk Current occupational status: employed Cognitive needs: No Hearing needs: No Vision needs: Yes Meds Allergies Allergy/AdvReac Type Severity Reaction Status Date / Time carrot [CARROT] Allergy Unknown CAME BACK Verified 06/25/22 10:01 + IN TESTING - ABLE TO EAT THEM egg [EGG] Allergy Unknown DIARRHEA Verified 06/25/22 10:01 petrolatum,white Allergy Unknown SKIN FELT Verified 06/25/22 10:01 [From Petroleum Jelly] LIKE IT WAS ON FIRE erythromycin base Allergy Unknown Verified 08/29/22 14:05 latex Allergy rash Verified 06/25/22 10:01 Anfrgka-BQQ-QzV Reductase AdvReac Intermediate leg pain Verified 06/25/22 10:01 Inhibitor ENVIRONMENTAL Allergy Unknown ITCHY EYES Uncoded 06/25/22 10:01 percocet Allergy Unknown Itching Uncoded 08/30/22 09:56 Home Medications Medication Instructions Recorded Confirmed Last Taken Type omega-3 fatty acids 1,000 mg 1,000 mg PO DAILY 06/20/20 06/25/22 Unknown History capsule (Fish Oil Concentrate) red yeast rice PO 06/20/20 06/25/22 Unknown History cholecalciferol (vitamin D3) 25 25 mcg PO DAILY 06/03/22 06/25/22 Unknown History mcg (1,000 unit) capsule Exam Airway Mallampati Class: II TM Dist: >3cm Neck ROM: Full Heart: rrr Lungs: cta Assessment and Plan Assessment Anesthesia Assessment: Anesthesia Plan Discussed Final Anesthetic Review Family History of Problems with Anesthesia: No History of Problems with Anesthesia: No NPO: Yes ASA Class: II Final Preanesthetic Review: No Changes in Pt Med Stat, Meds/Allgs Chart Reviewed, Consent Obtained/Reviewed and Anes Risks/Benef Reviewed Patient Risk: Low Procedure Risk: Low Anesthetic Plan Anesthetic Plan: MAC: Disposition: Standard PACU
[2022-08-30 09:57] VITALS: BMI 21.9
[2022-08-30 10:16] VITALS: BP 141/84; PULSE 94; RESP 16; TEMP 36.9; O2SAT 97
[2022-08-30] MEDS: Lactated Ringers 1,000 ML 100 ML IVCONT (10:29)
[2022-08-30 11:58] VITALS: BP 131/83; PULSE 86; RESP 16; TEMP 36.7; O2SAT 97
--- NOTE | 2022-08-30 11:59 | PM.OP ---
Brief Operative Note Date of Service: 08/30/22 Pre-op diagnosis: Screening, change in bowel habits Post-op diagnosis: other (Polyps, R/O microscopic colitis) Procedure: Colonoscopy to the cecum with bx/removal of polyps, cold snare polypectomy at 30cm, and biopsies Surgeon: Evelio Tapia Anesthesia: MAC Was an Flower Machine Operator used for this Procedure?: No Estimated blood loss (mL): 2.0 Pathology: other (A. Cecal polyp B. Ascending colon C. Ascending colon polyp D. Descending colon E. Polyp at 30cm) Condition: stable Disposition: PACU
[2022-08-30 12:13] VITALS: BP 134/85; PULSE 98; RESP 16; TEMP 36.7; O2SAT 98
--- NOTE | 2022-08-30 12:30 | OP_ITS ---
DATE OF SERVICE: 08/30/2022 SURGEON: Evelio Tapia MD INDICATIONS: The patient presents for evaluation of colorectal cancer screening, personal history of tubular adenoma of the colon, and change in bowel habits. Full consent has been obtained from her for this, including risks of bleeding and perforation. PREOPERATIVE DIAGNOSIS: POSTOPERATIVE DIAGNOSIS: PROCEDURE PERFORMED: Colonoscopy to cecum with biopsy and removal of polyps, cold snare polypectomy, and biopsies. ESTIMATED BLOOD LOSS: COMPLICATIONS: ANESTHESIA: Monitored anesthesia care. ASSISTANTS: SPECIMENS: PREOPERATIVE DIAGNOSES: Colorectal cancer screening, personal history of tubular adenoma of the colon, and change in bowel habits. POSTOPERATIVE DIAGNOSES: Colorectal cancer screening, personal history of tubular adenoma of the colon, and change in bowel habits, colon polyps, rule out microscopic colitis, diverticulosis, and internal hemorrhoids. DESCRIPTION OF PROCEDURE: The patient was placed in the left lateral decubitus position. The digital rectal exam revealed no abnormalities. The Olympus video-pediatric colonoscope was entered into the rectum and advanced easily to the cecum. Once in the cecum, I did identify cecal pouch and appendiceal orifice and a normal-appearing ileocecal valve. The entire cecum was well visualized and appeared normal other than a 3 mm polyp, which was biopsied and completely removed with cold biopsy forceps. The scope was then slowly withdrawn assessing all mucosal surfaces carefully. Preparation was excellent. In the ascending colon, there was an approximately 3 or 4 mm polyp, which was biopsied and completely removed with cold biopsy forceps. At 30 cm, there was an approximately 5 or 6 mm polyp, which was removed by cold snare polypectomy and recovered by suction. The polypectomy site appeared clean, without any sign of residual polyp nor significant bleeding. I did not visualize any other polyps, inflammatory bowel disease, nor angiodysplasia. I did obtain random biopsies in the ascending and descending colon. There was a mild amount of sigmoid diverticulosis. In the rectum, the scope was retroflexed visualizing internal hemorrhoids, but no other pathology. The rectal mucosa appeared normal. The scope was straightened and withdrawn from the patient. She tolerated the procedure well and was returned to the recovery area in stable condition. IMPRESSION: 1. Colon polyps. 2. Diverticulosis. 3. Rule out microscopic colitis. 4. Internal hemorrhoids. PLAN: The results of biopsies will be checked. Given these minimal findings and her age, I do not think she will need any further screening colonoscopies. She does still have occasional loose bowel movements, but in general, seems to be stable and I would therefore continue to observe her in this regard. The results of biopsies will be checked. Recent laboratories were negative for celiac disease and stool specimens were negative as well. She will be seen in followup as well. MD ALEKSANDR Altamirano/MARCY / [id number] MTDD
== END 2022-08-30 12:35 | disposition home or self-care (01) ==
PROVIDERS: PCP Internal Medicine; Visit Provider Internal Medicine
PROC: 0DJD8ZZ Inspection of Lower Intestinal Tract, Via Natural or Artificial Opening Endoscopic (ICD-10-PCS; CPT 45378; principal; 2022-08-30 10:40)
DX: Z12.11 Encounter for screening for malignant neoplasm of colon (principal); Z86.010 Personal history of colon polyps; D12.0 Benign neoplasm of cecum; D12.2 Benign neoplasm of ascending colon; D12.5 Benign neoplasm of sigmoid colon; K57.30 Diverticulosis of large intestine without perforation or abscess without bleeding; K64.8 Other hemorrhoids; R19.7 Diarrhea, unspecified; K21.9 Gastro-esophageal reflux disease without esophagitis; I10 Essential (primary) hypertension; E78.5 Hyperlipidemia, unspecified; M81.0 Age-related osteoporosis without current pathological fracture; E55.9 Vitamin D deficiency, unspecified; N32.81 Overactive bladder; Z79.899 Other long term (current) drug therapy; Z88.8 Allergy status to other drugs, medicaments and biological substances; Z91.040 Latex allergy status
CPT/HCPCS: 45385; 45380; 88305

== ENCOUNTER 2022-12-12 08:47 | Outpatient (AMB) | payer MEDICARE, SELFPAY ==
--- NOTE | 2022-12-12 11:07 | MHC.OFFWIV ---
Intake Vital Signs 12/12/22 11:11 Height 4 ft 11 in Weight 108 lb BMI 21.8 BP 110/66 Blood Pressure Location Lt brachial Position Sitting Pulse 89 Pulse Source Pulse Oximeter Temp 97.1 F Temp Source Temporal Artery Scan Pulse Oximetry (%) 98 Oxygen Delivery Method Room Air Intake Visit Reasons: EST/cold and flu symptoms/[phone] Intake Note: Pt is here requesting a COVID test. Pt states her test was inconclusive and would like to be re tested. Patient Tobacco Use Status: Never used Tobacco Allergies carrot [CARROT] Allergy (Unknown, Verified 12/12/22 11:07) CAME BACK + IN TESTING - ABLE TO EAT THEM egg [EGG] Allergy (Unknown, Verified 12/12/22 11:07) DIARRHEA petrolatum,white [From Petroleum Jelly] Allergy (Unknown, Verified 12/12/22 11:07) SKIN FELT LIKE IT WAS ON FIRE erythromycin base Allergy (Verified 12/12/22 11:07) Unknown latex Allergy (Verified 12/12/22 11:07) rash Ohaektt-FEI-HvG Reductase Inhibitor Adverse Reaction (Intermediate, Verified 12/12/22 11:07) leg pain ENVIRONMENTAL Allergy (Unknown, Uncoded 12/12/22 11:07) ITCHY EYES percocet Allergy (Unknown, Uncoded 12/12/22 11:07) Itching Do you need a note to return to daycare/school/sports/work: No HPI EST/cold and flu symptoms/[phone] HPI Details 72-year-old female patient presents today with a 3 day history mildly scratchy throat and postnasal drip. She reports that she was at a work event over the weekend, were multiple people have since tested positive for COVID. She took a home COVID test, however it was inconclusive. She is planning to travel this weekend, and would like additional testing if possible prior to this. She reports fever of 100.0 last night, however no fever since then. Denies any shortness of breath, cough, GI symptoms, sore throat. [facility] Medical History Osteoporosis Vitamin D deficiency Postmenopausal Normal breast exam Dysplastic nevus GERD (gastroesophageal reflux disease) HTN (hypertension) Hyperlipidemia Annual physical exam Surgical History H/O colonoscopy Social History Housing: House Alcohol intake: never Patient Tobacco Use Status: Never used Tobacco e-Cigarette/Vaping Use: Never Used Current occupational status: employed Cognitive needs: No Hearing needs: No Vision needs: Yes Review of Systems Const All systems reviewed & are unremarkable except as noted in HPI and below Physical Exam Vital Signs: Last Vital Signs Temp 97.1 F 12/12/22 11:11 Pulse 89 12/12/22 11:11 BP 110/66 12/12/22 11:11 Pulse Ox 98 12/12/22 11:11 Oxygen Delivery Method Room Air 12/12/22 11:11 BMI result Body Mass Index 21.8 Const General: cooperative, healthy appearing, comfortable and no acute distress HEENT Head: Yes normal to inspection Ears: hearing grossly normal bilaterally General nose exam: Normal external nose present and Normal nasal mucous membranes and turbinates present Face and sinus: Yes normal facial exam Mouth: Normal oral and palatal mucosa present and moist mucous membranes Throat: Yes posterior oropharynx normal Neck Neck: Yes no lymphadenopathy Resp Effort & Inspection: normal respiratory effort and able to speak in complete sentences Auscultation: clear to auscultation bilaterally Cardio Jugular venous distension: no JVD Palpation: normal PMI Rate: regular rate Rhythm: regular rhythm Skin General skin exam: no rashes or lesions noted Extrem General: Yes capillary refill normal and Yes no clubbing, cyanosis or edema Psych Appearance: grossly normal Mental Status: mental status grossly normal Speech and movement: Normal speech and movement present Assessment & Plan Assessment & Plan (1) Upper respiratory infection: Code(s): J06.9 - Acute upper respiratory infection, unspecified Qualifiers: URI type: unspecified viral URI Qualified Code(s): J06.9 - Acute upper respiratory infection, unspecified Plan: PCR test done for COVID/flu/RSV. Patient aware she will be notified of these results once available. Patient also requested rapid COVID test today, so this was ordered and she will go for this in the lab at this time. Advised ongoing conservative measures for her symptoms, including rest, hydration, vitamin C intake, proper diet, lozenges. If she does not improve with conservative measures and time, or if new symptoms develop, she should return to the clinic for further evaluation. She verbalizes understanding and agrees to plan. Orders: Orders [facility] Covid-19 Ag Today J06.9 - Acute upper respiratory infection, unspecified SARS-CoV2/FLU/RSV Today J06.9 - Acute upper respiratory infection, unspecified Coding Level of Care Code Est Pt Level 3 (63155) Diagnoses Viral upper respiratory tract infection J06.9 URI type: unspecified viral URI
[2022-12-12 11:11] VITALS: BP 110/66; PULSE 89; TEMP 36.2; O2SAT 98; BMI 21.8
== END 2022-12-12 11:55 | disposition home or self-care (01) ==
PROVIDERS: PCP Internal Medicine; Visit Provider Nurse Practitioner Family
DX: J06.9 Acute upper respiratory infection, unspecified (principal)
CPT/HCPCS: 99213

== ENCOUNTER 2022-12-12 11:34 | Outpatient (REF) | payer MEDICARE, SELFPAY | END 2022-12-12 11:35 | disposition home or self-care (01) | LOC: HO.LAB 11:34 | PROVIDERS: Visit Provider Nurse Practitioner Family | DX: J06.9 Acute upper respiratory infection, unspecified (principal); Z11.52 Encounter for screening for COVID-19 | CPT/HCPCS: 0241U ==

== ENCOUNTER 2022-12-12 11:38 | Outpatient (REF) | payer MEDICARE, SELFPAY | END 2022-12-12 11:39 | disposition home or self-care (01) | LOC: HO.HMGCLDS 11:38 | PROVIDERS: PCP Internal Medicine; Visit Provider Nurse Practitioner Family | DX: J06.9 Acute upper respiratory infection, unspecified (principal); Z11.52 Encounter for screening for COVID-19 | CPT/HCPCS: 87811; C9803 ==

== ENCOUNTER 2022-12-26 06:01 | Outpatient (REF) | payer MEDICARE, SELFPAY ==
[2022-12-26 11:04] LABS: MANUAL DIFF FLAG NO
[2022-12-26 11:29] LABS: Basophils Percent Auto 0.7 % (0-2); Eosinophils Absolute Auto 0.1 X10*3/uL (0.0-0.4); Eosinophils Percent Auto 2.4 % (0-4); Hematocrit 46.1 % (37.0-47.0); Hemoglobin 15.6 g/dl (12.0-16.0); Imm Gran Abs Auto 0.02 X10*3/uL (0.00-0.03); Imm Gran Pct Auto 0.4 % (0.0-0.4); Lymphocytes Absolute Auto 1.7 X10*3/uL (1.2-4.9); Lymphocytes Percent Auto 31.5 % (20-40); Mean Corpuscular HGB Conc 33.8 g/dl (31.0-35.0); Mean Corpuscular Hemoglobin 32.9 pg (27.0-33.0); Mean Corpuscular Volume 97.3 fL (80.0-98.0); Mean Platelet Volume 10.5 fL (9.4-12.3); Monocytes Absolute Auto 0.4 X10*3/uL (0.1-1.2); Monocytes Percent Auto 7.6 % (2-11); Neutrophils Absolute Auto 3.2 x10*3/uL (2.0-8.3); Neutrophils Percent Auto 57.4 % (45-73); Platelet Count 240 X10*3/uL (160-400); Red Blood Count 4.74 X10*6/uL (4.20-5.50); Red Cell Distribution Width 11.5 % (11.0-16.0); White Blood Count 5.5 X10*3/uL (4.8-10.8)
[2022-12-26 12:37] LABS: TSH reflex Free T4 1.24 uIU/mL (0.32-4.0)
[2022-12-26 12:40] LABS: Anion Gap 12 (12-20)
[2022-12-26 12:45] LABS: Alanine Aminotransferase 22 U/L (0-31); Albumin Level 4.6 g/dL (3.5-5.0); Alkaline Phosphatase 80 U/L (39-117); Aspartate Amino Transferase 24 U/L (5-31); Bilirubin Total 0.8 mg/dL (0.0-1.0); Blood Urea Nitrogen 16 mg/dL (9-16); Calcium 10.8 mg/dL (8.4-10.2); Carbon Dioxide 31 mmol/L (22-29); Chloride 101 mmol/L (96-108); Cholesterol 249 mg/dL (<200); Estimated Glomerular Filt Rate > 60; Glucose Fasting 103 mg/dL (60-99); HDL Cholesterol 58 mg/dL (>40); LDL Cholesterol Calculated 147 mg/dL (<100); Potassium 4.4 mmol/L (3.3-5.1); Sodium 140 mmol/L (135-145); Total Protein 7.5 g/dL (6.5-8.0); Triglycerides 224 mg/dL (<150)
== END 2022-12-26 06:02 | disposition home or self-care (01) ==
LOC: HO.HMGCLDS 06:01
PROVIDERS: PCP Internal Medicine; Visit Provider Internal Medicine
DX: I10 Essential (primary) hypertension (principal); E78.5 Hyperlipidemia, unspecified
CPT/HCPCS: 36415; 80053; 80061; 84443; 85025

== ENCOUNTER 2022-12-31 10:23 | Outpatient (AMB) | payer MEDICARE, SELFPAY ==
[2022-12-31 10:25] VITALS: BP 122/80; PULSE 83; O2SAT 99; BMI 21.4
--- NOTE | 2022-12-31 10:25 | A.OFFPC_ITS ---
Vital Signs 12/31/22 10:25 Height 4 ft 11 in Weight 106 lb BMI 21.4 BP 122/80 Blood Pressure Location Lt brachial Position Sitting Pulse 83 Pulse Source Pulse Oximeter Pulse Oximetry (%) 99 Oxygen Delivery Method Room Air Intake Visit Reasons: PE Intake Note: Pt is here today for PE. Allergies carrot [CARROT] Allergy (Unknown, Verified 12/31/22 10:27) CAME BACK + IN TESTING - ABLE TO EAT THEM egg [EGG] Allergy (Unknown, Verified 12/31/22 10:27) DIARRHEA petrolatum,white [From Petroleum Jelly] Allergy (Unknown, Verified 12/31/22 1 0:27) SKIN FELT LIKE IT WAS ON FIRE erythromycin base Allergy (Verified 12/31/22 10:27) Unknown latex Allergy (Verified 12/31/22 10:27) rash Cyljpek-KDA-MpX Reductase Inhibitor Adverse Reaction (Intermediate, Verified 12/31/22 10:27) leg pain ENVIRONMENTAL Allergy (Unknown, Uncoded 12/31/22 10:27) ITCHY EYES percocet Allergy (Unknown, Uncoded 12/31/22 10:27) Itching Medication List - Last Reconciled 12/31/22 by Sherie Sandoval MD cholecalciferol (vitamin D3) 25 mcg PO DAILY ezetimibe (Zetia) 10 mg PO DAILY lisinopril 5 mg PO DAILY omega-3 fatty acids (Fish Oil Concentrate) 1,000 mg PO DAILY omeprazole 20 mg PO BID red yeast rice PO tolterodine ER 4 mg PO DAILY Tobacco use date assessed: 12/31/22 Fall risk assessment: No Falls in past year Last assessed Fall Risk: 12/31/22 Dental Screening Dental Screen Date: 12/31/22 Did you have a dental visit in the last 12 months?: Yes Did you have a dental problem in the last 6 months where you did not have access to dental care?: No Was dental information given to patient?: Patient has dentist HPI PE HPI Details Pt presents for PE. PFSH Medical History Osteoporosis Vitamin D deficiency Postmenopausal Normal breast exam Dysplastic nevus GERD (gastroesophageal reflux disease) HTN (hypertension) Hyperlipidemia Annual physical exam Surgical History H/O colonoscopy Family History Father Heart problem Mother Hypertension Dementia Social History Housing: House Alcohol intake: never Patient Tobacco Use Status: Never used Tobacco e-Cigarette/Vaping Use: Never Used Current occupational status: employed Cognitive needs: No Hearing needs: No Vision needs: Yes Questionnaire PHQ-9 Over the last 2 weeks, how often have you been bothered by any of the following problems? 1. Little interest or pleasure in doing things: not at all 2. Feeling down, depressed, or hopeless: not at all 3. Trouble falling or staying asleep, or sleeping too much: several days 4. Feeling tired or having little energy: not at all 5. Poor appetite or overeating: not at all 6. Feeling bad about yourself - or that you are a failure or have let yourself or your family down: not at all 7. Trouble concentrating on things, such as reading the newspaper or watching television: not at all 8. Moving or speaking so slowly that other people could have noticed. Or the opposite - being so fidgety or restless that you have been moving around a lot more than usual: not at all 9. Thoughts that you would be better off or of hurting yourself in some way: not at all Total score: 1 Depression Screening Interpretation: Negative Depression Screening Done: Yes Source: Developed by Drs. Evelio Hernández, Latasha Ponce, Elian Mckeon and colleagues, with an educational rahel from [employer]. Thrive Questionnaire Date Thrive assessed: 12/31/22 I am a: Patient What is your living situation today?: I have a steady place to live Within the past 12 months, did the food you bought not last and you didn't have the money to get more?: Never true Within the past 12 months, did you worry whether your food would run out before you got money to buy more?: Never true Do you have trouble paying for medicines?: No Do you have trouble getting transportation to medical appointments?: No Do you have trouble paying your heating and electricity bill?: No Do you have trouble taking care of your child, family member or friend?: No Do you have trouble with day-to-day activities such as bathing, preparing meals, shopping, managing finances, etc.?: No Are you currently unemployed and looking for a job?: No Are you interested in more education?: No Please select the resources that you would like help with: None AUDIT C Alcohol Use Questionnaire (AUDIT-C) 1. How often do you have a drink containing alcohol?: Monthly or less 2. How many drinks containing alcohol do you have on a typical day when you are drinking?: 1 or 2 3. How often do you have six or more drinks on one occasion?: Never Total Score: 1 KAYLEE-7 AMB Questionnaire KAYLEE-7 Date KAYLEE - 7 assessed: 12/31/22 Feeling nervous, anxious, or on edge: 0 = Not at all Not being able to stop or control worryin = Not at all Worrying too much about different things: 0 = Not at all Trouble relaxin = Not at all Being so restless that it is hard to sit still: 0 = Not at all Becoming easily annoyed or irritable: 0 = Not at all Feeling afraid as if something awful might happen: 0 = Not at all Total KAYLEE-7 score (0-4 normal; 5-9 mild; 10-14 moderate; 15-21 severe): 0 Source: Developed by Drs. Evelio Hernández, Latasha Ponce, Elian Mckeon and colleagues, with an educational rahel from [employer]. Review of Systems Const All systems reviewed & are unremarkable except as noted in HPI and below Reports no additional complaints Eyes Reports no additional complaints ENT Reports no additional complaints Card Reports no additional complaints Resp Reports no additional complaints GI Reports no additional complaints Reports no additional complaints Physical exam (Primary Care) Vital Signs: Last Vital Signs Pulse 83 12/31/22 10:25 BP 122/80 12/31/22 10:25 Pulse Ox 99 12/31/22 10:25 Oxygen Delivery Method Room Air 12/31/22 10:25 BMI result Body Mass Index 21.4 Tobacco/Smoking Status: Tobacco use Status Tobacco use date assessed 12/31/22 12/31/22 10:31 Patient Tobacco Use Status Never used Tobacco 12/31/22 10:31 e-Cigarette/Vaping Use Never Used 12/31/22 10:31 PHQ-9: PHQ-9 Score PHQ-9: Total score 1 12/31/22 10:31 Depression Screening Interpretation: Negative Thrive Assessment: Date of Thrive Assessment Date Thrive assessed 12/31/22 12/31/22 10:31 Const General: no acute distress HENMT Head: Yes normal to inspection Ears: hearing grossly normal bilaterally General nose exam: Normal external nose present Face and sinus: Yes normal facial exam Mouth: Normal oral and palatal mucosa present Throat: Yes posterior oropharynx normal Eyes General: appearance normal, both eyes and all related structures Neck Neck: Yes no lymphadenopathy and Yes supple Resp Effort & Inspection: normal respiratory effort Auscultation: clear to auscultation bilaterally Cardio Rhythm: regular rhythm Heart sounds: S1 normal heart sound present and S2 normal heart sound present GI Inspection: Yes normal to inspection Palpation (GI): Soft to palpation Percussion: Yes normal to percussion Auscultation: normal bowel sounds Assessment and Plan Assessment & Plan (1) Osteoporosis: Comment: DEXA - SD 2.8, 01/28 , on vit D Code(s): M81.0 - Age-related osteoporosis without current pathological fracture Plan: cont vit D3,exercise and repeat DEXA (2) HTN (hypertension): Code(s): I10 - Essential (primary) hypertension Plan: Continue lisinopril (3) Hyperlipidemia: Comment: Intolerant to statins Code(s): E78.5 - Hyperlipidemia, unspecified Plan: Continue Zetia and low-cholesterol diet return in 6 months with a fasting labs before (4) Annual physical exam: Code(s): Z00.00 - Encounter for general adult medical examination without abnormal findings Plan: Well-balanced diet regular exercise discussed with the patient follow-up in 6 months Orders: Orders XR DEXA axial skeleton Today M81.0 - Age-related osteoporosis without current pathological fracture Comprehensive [place]. Panel Fast 6 Months E78.5 - Hyperlipidemia, unspecified, I10 - Essential (primary) hypertension, M81.0 - Age-related osteoporosis without current pathological fracture, Z00.00 - Encounter for general adult medical examination without abnormal findings Complete Blood Count Auto Diff 6 Months E78.5 - Hyperlipidemia, unspecified, I10 - Essential (primary) hypertension, M81.0 - Age-related osteoporosis without current pathological fracture, Z00.00 - Encounter for general adult medical examination without abnormal findings Lipid Panel 6 Months E78.5 - Hyperlipidemia, unspecified, I10 - Essential (primary) hypertension, M81.0 - Age-related osteoporosis without current pathological fracture, Z00.00 - Encounter for general adult medical examination without abnormal findings Vitamin D 25-OH Total 6 Months E78.5 - Hyperlipidemia, unspecified, I10 - Essential (primary) hypertension, M81.0 - Age-related osteoporosis without current pathological fracture, Z00.00 - Encounter for general adult medical examination without abnormal findings Coding Level of Care Code Est Pt Prev Care >65y(59516) Diagnoses Osteoporosis M81.0 HTN (hypertension) I10 Hyperlipidemia E78.5 Annual physical exam Z00.00
== END 2022-12-31 11:21 | disposition home or self-care (01) ==
PROVIDERS: Visit Provider Internal Medicine
DX: Z00.00 Encounter for general adult medical examination without abnormal findings (principal); M81.0 Age-related osteoporosis without current pathological fracture; I10 Essential (primary) hypertension; E78.5 Hyperlipidemia, unspecified
CPT/HCPCS: 99397

== ENCOUNTER 2023-02-04 14:58 | Outpatient (REF) | payer MEDICARE, SELFPAY ==
--- NOTE | ~2023-02-04 | MM_ITS ---
EXAMINATION: BONE DENSITOMETRY CLINICAL INDICATION: Age-related osteoporosis without current pathological fracture. COMPARISON: Previous BD dated 01/30/2021 and baseline BD dated 08/29/2011. TECHNIQUE: Using a [employer] DXA System (software version: 13.1) manufactured by [employer], dual-energy x-ray absorptiometry was performed of the lumbar spine and left hip. The images are of good technical quality. Summary results are attached. FINDINGS: LEFT FEMUR, NECK: Current: BMD 0.659 g/cm2, Z-score -0.5, T-score -2.7, osteoporosis. Prior: BMD 0.655 g/cm2. Baseline: BMD 0.690 g/cm2. LEFT FEMUR, TOTAL: Current: BMD 0.678 g/cm2, Z-score 0.6, T-score -2.6, osteoporosis, 5.4% decrease from previous, 8.6% decrease from baseline (<5% change is not significant). Prior: BMD 0.717 g/cm2. Baseline: BMD 0.742 g/cm2. AP SPINE L1-L4: Current: BMD 1.004 g/cm2, Z-score 0.8, T-score -1.5, osteopenia, 1.7% decrease from previous, 1.3% decrease from baseline (<5% change is not significant). Prior: BMD 1.021 g/cm2. Baseline: BMD 1.017 g/cm2. IDENTIFIED RISK FACTORS: Hysterectomy, bilateral oophorectomy, menopause. HISTORY OF FRACTURE: None listed. MEDICATIONS: None listed. MM/XR DEXA axial skeleton IMPRESSION: 1. DIAGNOSIS: Osteoporosis based on the lowest T-score value of -2.7 in the femoral neck applying World Health Organization criteria. 2. 10-YEAR FRACTURE RISK PREDICTION, FRAX: According to the guidelines, FRAX calculation should only be performed on patients in the osteopenia bone density category. Therefore, FRAX was not performed on this patient. 3. Treatment Recommendations: NOF guidelines recommend consideration for treatment in postmenopausal women and men age 50 and older presenting with the following: -A hip or vertebral (clinical or morphometric) fracture. -T-score less than or equal to -2.5 at the femoral neck or spine after appropriate evaluation to exclude secondary causes. -Low bone mass at the hip or spine and a 10-year fracture probability by FRAX of greater than or equal to 3% for hip fracture or greater than or equal to 20% for major osteoporotic fracture based on the [place] adapted WHO algorithm. 4. Other Recommendations: All treatment decisions require clinical judgment and consideration of individual patient factors, including patient preferences, comorbidities, previous drug use, risk factors not captured in the FRAX model (e.g. frailty, falls, vitamin D deficiency, increased bone turnover, interval significant decline in bone density) and possible under or overestimation of fracture risk by FRAX. Additional medical evaluation for secondary cause of low bone mineral density may be appropriate. FUTURE SCAN RECOMMENDATION: People with diagnosed cases of osteoporosis or at high risk for fracture should have regular bone mineral density tests. For patients eligible for Medicare, routine testing is allowed once every 2 years. The testing frequency can be increased to one year for patients who have rapidly progressing disease, those who are receiving or discontinuing medical therapy to restore bone mass, or have additional risk factors.
== END 2023-02-04 14:59 | disposition home or self-care (01) ==
LOC: HO.MAMMO 14:58
PROVIDERS: PCP Internal Medicine; Visit Provider Internal Medicine
DX: Z13.820 Encounter for screening for osteoporosis (principal); Z78.0 Asymptomatic menopausal state; M81.0 Age-related osteoporosis without current pathological fracture
CPT/HCPCS: 77080

== ENCOUNTER 2023-02-21 13:36 | Outpatient (AMB) | payer MEDICARE, SELFPAY ==
--- NOTE | 2023-02-21 13:43 | MHC.PC.OV ---
Vital Signs 02/21/23 13:57 Height 4 ft 11 in Weight 107 lb BMI 21.6 BP 118/66 Blood Pressure Location Lt brachial Position Sitting Pulse 90 Pulse Source Pulse Oximeter Pulse Oximetry (%) 97 Oxygen Delivery Method Room Air Intake Visit Reasons: Follow up after Bone Density result Intake Note: Pt is here today for a follow up visit on Bone density results and treatment. Allergies carrot [CARROT] Allergy (Unknown, Verified 02/21/23 13:59) CAME BACK + IN TESTING - ABLE TO EAT THEM egg [EGG] Allergy (Unknown, Verified 02/21/23 13:59) DIARRHEA petrolatum,white [From Petroleum Jelly] Allergy (Unknown, Verified 02/21/23 13:59) SKIN FELT LIKE IT WAS ON FIRE erythromycin base Allergy (Verified 02/21/23 13:59) Unknown latex Allergy (Verified 02/21/23 13:59) rash Zwcerdr-YCM-GgA Reductase Inhibitor Adverse Reaction (Intermediate, Verified 02/21/23 13:59) leg pain ENVIRONMENTAL Allergy (Unknown, Uncoded 02/21/23 13:59) ITCHY EYES percocet Allergy (Unknown, Uncoded 02/21/23 13:59) Itching Medication List - Last Reconciled 02/21/23 by Sherie Sandoval MD cholecalciferol (vitamin D3) 25 mcg PO DAILY ezetimibe (Zetia) 10 mg PO DAILY lisinopril 5 mg PO DAILY omega-3 fatty acids (Fish Oil Concentrate) 1,000 mg PO DAILY omeprazole 20 mg PO BID red yeast rice PO tolterodine ER 4 mg PO DAILY Tobacco use date assessed: 02/21/23 HPI Follow up after Bone Density result HPI Details Patient presents to discuss osteoporosis treatment. She has been taking vitamin-D 3 and exercising 5 times a week walking and starting weight-bearing exercises. She denies any fractures. Hypertension and chronic GERD are controlled on current medications. [facility] Medical History (Updated 02/21/23 @ 15:11 by Sherie Sandoval MD) Osteoporosis Vitamin D deficiency Postmenopausal Normal breast exam Dysplastic nevus GERD (gastroesophageal reflux disease) HTN (hypertension) Hyperlipidemia Annual physical exam Surgical History H/O colonoscopy Family History Father Heart problem Mother Hypertension Dementia Social History Housing: House Alcohol intake: never Patient Tobacco Use Status: Never used Tobacco e-Cigarette/Vaping Use: Never Used Current occupational status: employed Cognitive needs: No Hearing needs: No Vision needs: Yes Questionnaire Thrive Questionnaire Date Thrive assessed: 12/31/22 KAYLEE-7 AMB Questionnaire KAYLEE-7 Date KAYLEE - 7 assessed: 12/31/22 Source: Developed by Drs. Evelio Hernández, Latasha Ponce, Elian Mckeon and colleagues, with an educational rahel from [employer]. Review of Systems Const All systems reviewed & are unremarkable except as noted in HPI and below Reports no additional complaints Eyes Reports no additional complaints ENT Reports no additional complaints Card Reports no additional complaints Resp Reports no additional complaints GI Reports no additional complaints Physical exam (Primary Care) Vital Signs: Last Vital Signs Pulse 90 02/21/23 13:57 BP 118/66 02/21/23 13:57 Pulse Ox 97 02/21/23 13:57 Oxygen Delivery Method Room Air 02/21/23 13:57 BMI result Body Mass Index 21.6 Tobacco/Smoking Status: Tobacco use Status Tobacco use date assessed 02/21/23 02/21/23 14:01 Patient Tobacco Use Status Never used Tobacco 02/21/23 13:43 e-Cigarette/Vaping Use Never Used 02/21/23 13:43 Thrive Assessment: Date of Thrive Assessment Date Thrive assessed 12/31/22 02/21/23 13:43 Const General: no acute distress HENMT Head: Yes normal to inspection Ears: hearing grossly normal bilaterally Resp Effort & Inspection: normal respiratory effort Auscultation: clear to auscultation bilaterally Cardio Rhythm: regular rhythm Heart sounds: S1 normal heart sound present and S2 normal heart sound present GI Inspection: Yes normal to inspection Palpation (GI): Soft to palpation Assessment and Plan Assessment & Plan (1) Osteoporosis: Comment: DEXA - SD 2.8, 01/28 , unchanged 01/30 on vit D Code(s): M81.0 - Age-related osteoporosis without current pathological fracture Plan: Treatment options discussed with the patient. She declined taking medications and will continue regular exercise add weight-bearing exercises and vitamin-D 3 supplement. Repeat DEXA in 2 years (2) HTN (hypertension): Code(s): I10 - Essential (primary) hypertension Plan: cont Lisinopril Coding Level of Care Code Est Pt Level 3 (42547) Diagnoses Osteoporosis M81.0 HTN (hypertension) I10
[2023-02-21 13:57] VITALS: BP 118/66; PULSE 90; O2SAT 97; BMI 21.6
== END 2023-02-21 15:13 | disposition home or self-care (01) ==
PROVIDERS: PCP Internal Medicine; Visit Provider Internal Medicine
DX: M81.0 Age-related osteoporosis without current pathological fracture (principal); I10 Essential (primary) hypertension
CPT/HCPCS: 99213

== ENCOUNTER 2023-06-27 06:09 | Outpatient (REF) | payer MEDICARE, SELFPAY ==
[2023-06-27 10:33] LABS: MANUAL DIFF FLAG NO
[2023-06-27 10:46] LABS: Basophils Percent Auto 0.8 % (0-2); Eosinophils Absolute Auto 0.2 X10*3/uL (0.0-0.4); Eosinophils Percent Auto 3.8 % (0-4); Hematocrit 46.1 % (37.0-47.0); Hemoglobin 15.9 g/dl (12.0-16.0); Imm Gran Abs Auto 0.01 X10*3/uL (0.00-0.03); Imm Gran Pct Auto 0.2 % (0.0-0.4); Lymphocytes Absolute Auto 1.8 X10*3/uL (1.2-4.9); Lymphocytes Percent Auto 33.1 % (20-40); Mean Corpuscular HGB Conc 34.5 g/dl (31.0-35.0); Mean Corpuscular Hemoglobin 33.3 pg (27.0-33.0); Mean Corpuscular Volume 96.6 fL (80.0-98.0); Mean Platelet Volume 10.7 fL (9.4-12.3); Monocytes Absolute Auto 0.4 X10*3/uL (0.1-1.2); Monocytes Percent Auto 7.7 % (2-11); Neutrophils Absolute Auto 2.9 x10*3/uL (2.0-8.3); Neutrophils Percent Auto 54.4 % (45-73); Platelet Count 220 X10*3/uL (160-400); Red Blood Count 4.77 X10*6/uL (4.20-5.50); Red Cell Distribution Width 11.9 % (11.0-16.0); White Blood Count 5.3 X10*3/uL (4.8-10.8)
[2023-06-27 14:35] LABS: Alanine Aminotransferase 18 U/L (0-31); Albumin Level 4.6 g/dL (3.5-5.0); Alkaline Phosphatase 84 U/L (39-117); Anion Gap 13 (12-20); Aspartate Amino Transferase 25 U/L (5-31); Bilirubin Total 0.8 mg/dL (0.0-1.0); Blood Urea Nitrogen 15 mg/dL (9-16); Calcium 10.1 mg/dL (8.4-10.2); Carbon Dioxide 31 mmol/L (22-29); Chloride 102 mmol/L (96-108); Cholesterol 253 mg/dL (<200); Estimated Glomerular Filt Rate > 60; Glucose Fasting 112 mg/dL (60-99); HDL Cholesterol 50 mg/dL (>40); LDL Cholesterol Calculated 172 mg/dL (<100); Potassium 4.7 mmol/L (3.3-5.1); Sodium 141 mmol/L (135-145); Total Protein 7.4 g/dL (6.5-8.0); Triglycerides 159 mg/dL (<150)
[2023-06-27 14:44] LABS: Vitamin D 25-OH Total 68.4 ng/mL (>30)
== END 2023-06-27 06:10 | disposition home or self-care (01) ==
LOC: HO.HMGCLDS 06:09
PROVIDERS: PCP Internal Medicine; Visit Provider Internal Medicine
DX: Z00.00 Encounter for general adult medical examination without abnormal findings (principal); M81.0 Age-related osteoporosis without current pathological fracture; I10 Essential (primary) hypertension; E78.5 Hyperlipidemia, unspecified
CPT/HCPCS: 36415; 80053; 80061; 82306; 85025

== ENCOUNTER 2023-07-02 10:51 | Outpatient (AMB) | payer MEDICARE, SELFPAY ==
--- NOTE | 2023-07-02 11:11 | A.OFFPC_ITS ---
Vital Signs 07/02/23 11:12 Height 4 ft 11 in Weight 108 lb BMI 21.8 BP 118/60 Blood Pressure Location Lt brachial Position Sitting Pulse 86 Pulse Source Pulse Oximeter Pulse Oximetry (%) 94 Oxygen Delivery Method Room Air Intake Visit Reasons: 6 month follow up Intake Note: Pt is here today for her 6 mo. f/u Allergies carrot [CARROT] Allergy (Unknown, Verified 07/02/23 11:14) CAME BACK + IN TESTING - ABLE TO EAT THEM egg [EGG] Allergy (Unknown, Verified 07/02/23 11:14) DIARRHEA petrolatum,white [From Petroleum Jelly] Allergy (Unknown, Verified 07/02/23 11:14) SKIN FELT LIKE IT WAS ON FIRE erythromycin base Allergy (Verified 07/02/23 11:14) Unknown latex Allergy (Verified 07/02/23 11:14) rash Nuqcnpy-YHF-NmS Reductase Inhibitor Adverse Reaction (Intermediate, Verified 07/02/23 11:14) leg pain ENVIRONMENTAL Allergy (Unknown, Uncoded 07/02/23 11:14) ITCHY EYES percocet Allergy (Unknown, Uncoded 07/02/23 11:14) Itching Medication List - Last Reconciled 07/02/23 by Sherie Sandoval MD cholecalciferol (vitamin D3) 25 mcg PO DAILY ezetimibe (Zetia) 10 mg PO DAILY lisinopril 5 mg PO DAILY omega-3 fatty acids (Fish Oil Concentrate) 1,000 mg PO DAILY omeprazole 20 mg PO BID red yeast rice PO rosuvastatin (Crestor) 10 mg PO DAILY tolterodine ER 4 mg PO DAILY Tobacco use date assessed: 07/02/23 Fall risk assessment: No Falls in past year Last assessed Fall Risk: 07/02/23 Dental Screening Dental Screen Date: 07/02/23 Did you have a dental visit in the last 12 months?: Yes Did you have a dental problem in the last 6 months where you did not have access to dental care?: No Was dental information given to patient?: Patient has dentist HPI 6 month follow up HPI Details Patient presents for the follow-up of hypertension hyperlipidemia chronic GERD. She has been under lot of stress related to her brother's dementia and trying to arrange for his placement. [facility] Medical History (Updated 07/02/23 @ 12:04 by Sherie Sandoval MD) Osteoporosis Vitamin D deficiency Postmenopausal Normal breast exam Dysplastic nevus GERD (gastroesophageal reflux disease) HTN (hypertension) Hyperlipidemia Annual physical exam Surgical History H/O colonoscopy Family History Father Heart problem Mother Hypertension Dementia Social History Housing: House Alcohol intake: never Patient Tobacco Use Status: Never used Tobacco e-Cigarette/Vaping Use: Never Used Current occupational status: employed Cognitive needs: No Hearing needs: No Vision needs: Yes Questionnaire Thrive Questionnaire Date Thrive assessed: 12/31/22 KAYLEE-7 AMB Questionnaire KAYLEE-7 Date KAYLEE - 7 assessed: 12/31/22 Source: Developed by Drs. Evelio Hernández, Latasha Ponce, Elian Mckeon and colleagues, with an educational rahel from [employer]. Review of Systems Const All systems reviewed & are unremarkable except as noted in HPI and below ENT Reports no additional complaints Card Reports no additional complaints Resp Reports no additional complaints GI Reports no additional complaints Reports no additional complaints Physical exam (Primary Care) Vital Signs: Last Vital Signs Pulse 86 07/02/23 11:12 BP 118/60 07/02/23 11:12 Pulse Ox 94 07/02/23 11:12 Oxygen Delivery Method Room Air 07/02/23 11:12 BMI result Body Mass Index 21.8 Tobacco/Smoking Status: Tobacco use Status Tobacco use date assessed 07/02/23 07/02/23 11:15 Patient Tobacco Use Status Never used Tobacco 07/02/23 11:14 e-Cigarette/Vaping Use Never Used 07/02/23 11:14 Thrive Assessment: Date of Thrive Assessment Date Thrive assessed 12/31/22 07/02/23 11:14 Const General: no acute distress HENMT Face and sinus: Yes normal facial exam Throat: Yes posterior oropharynx normal Resp Effort & Inspection: normal respiratory effort Auscultation: clear to auscultation bilaterally Cardio Rhythm: regular rhythm Heart sounds: S1 normal heart sound present and S2 normal heart sound present GI Inspection: Yes normal to inspection Palpation (GI): Soft to palpation Assessment and Plan Assessment & Plan (1) Hyperlipidemia: Comment: Intolerant to statins Code(s): E78.5 - Hyperlipidemia, unspecified Plan: Hyperlipidemia not controlled on Zetia. Add 10 mg of Crestor with CO Q10. Check lipid profile in 2 months (2) HTN (hypertension): Code(s): I10 - Essential (primary) hypertension Plan: Continue lisinopril (3) Hyperglycemia: Code(s): R73.9 - Hyperglycemia, unspecified Plan: ADA diet increase physical activity discussed with the patient. Check A1c in 2 months and then 6 months. (4) Osteoporosis: Comment: DEXA - SD 2.8, 01/28 , unchanged 01/30 on vit D , pt declined treatment Code(s): M81.0 - Age-related osteoporosis without current pathological fracture Orders: Orders Lipid Panel 2 Months E78.5 - Hyperlipidemia, unspecified, I10 - Essential (primary) hypertension Comprehensive [place]. Panel Fast 6 Months E78.5 - Hyperlipidemia, unspecified, I10 - Essential (primary) hypertension, M81.0 - Age-related osteoporosis without current pathological fracture, R73.9 - Hyperglycemia, unspecified Hemoglobin A1c 6 Months E78.5 - Hyperlipidemia, unspecified, I10 - Essential (primary) hypertension, M81.0 - Age-related osteoporosis without current pathological fracture, R73.9 - Hyperglycemia, unspecified Lipid Panel 6 Months E78.5 - Hyperlipidemia, unspecified, I10 - Essential (primary) hypertension, M81.0 - Age-related osteoporosis without current pathological fracture, R73.9 - Hyperglycemia, unspecified TSH reflex Free T4 6 Months E78.5 - Hyperlipidemia, unspecified, I10 - Essential (primary) hypertension, M81.0 - Age-related osteoporosis without current pathological fracture, R73.9 - Hyperglycemia, unspecified Comprehensive [place]. Panel Fast 2 Months E78.5 - Hyperlipidemia, unspecified, I10 - Essential (primary) hypertension Hemoglobin A1c 2 Months R73.9 - Hyperglycemia, unspecified Complete Blood Count Auto Diff 6 Months E78.5 - Hyperlipidemia, unspecified, I10 - Essential (primary) hypertension, M81.0 - Age-related osteoporosis without current pathological fracture, R73.9 - Hyperglycemia, unspecified Medications: New rosuvastatin (Crestor) 10 mg PO DAILY 90 tabs 1RF rosuvastatin (Crestor) 10 mg PO DAILY 90 tabs 1RF Refilled tolterodine ER 4 mg PO DAILY 90 caps 3RF omeprazole 20 mg PO BID 180 caps 3RF lisinopril 5 mg PO DAILY 90 tabs 3RF ezetimibe (Zetia) 10 mg PO DAILY 90 tabs 3RF Coding Level of Care Code Est Pt Level 4 (07273) Diagnoses Hyperlipidemia E78.5 HTN (hypertension) I10 Hyperglycemia R73.9 Osteoporosis M81.0
[2023-07-02 11:12] VITALS: BP 118/60; PULSE 86; O2SAT 94; BMI 21.8
== END 2023-07-02 12:05 | disposition home or self-care (01) ==
PROVIDERS: PCP Internal Medicine; Visit Provider Internal Medicine
DX: E78.5 Hyperlipidemia, unspecified (principal); I10 Essential (primary) hypertension; R73.9 Hyperglycemia, unspecified; M81.0 Age-related osteoporosis without current pathological fracture
CPT/HCPCS: 99214

== ENCOUNTER → 2023-07-29 08:00 | Outpatient (BNV) | payer MEDICARE, SELFPAY | PROVIDERS: PCP Internal Medicine; Visit Provider Radiology Diagnostic Radiology | DX: Z12.31 Encounter for screening mammogram for malignant neoplasm of breast (principal) | CPT/HCPCS: 77063; 77067 ==

== ENCOUNTER 2023-07-29 08:03 | Outpatient (REF) | payer MEDICARE, SELFPAY ==
--- NOTE | ~2023-07-29 | MM_ITS ---
EXAMINATION: MM SCREENING DIGITAL BREAST TOMOSYNTHESIS, BILATERAL CLINICAL INFORMATION: Screening. Asymptomatic. COMPARISON: Mammography: 07/23/2022, 07/12/2021, 07/11/2020, 11/17/2018 TECHNIQUE: Digital breast tomosynthesis is performed in both the craniocaudal and mediolateral oblique views along with computer-aided detection (CAD). Synthesized 2D images are generated from the tomosynthesis. FINDINGS: There are scattered areas of fibroglandular density (ACR BI-RADS breast composition Category b). Parenchymal pattern is stable with a few scattered minor asymmetries, and a dominant asymmetry upper outer left breast, middle one third. There are no suspicious masses, suspicious grouped calcifications, or areas of architectural distortion in either breast. The parenchymal pattern is stable from prior exams. No skin or suspicious axillary abnormality. MM/MM tomosynthesis screening BI IMPRESSION: No mammographic evidence of malignancy. ASSESSMENT: BI-RADS BI-RADS 2 - Benign Findings RECOMMENDATION: Routine annual mammography screening. 1 year F/U This examination should not preclude the clinical evaluation of a suspicious palpable abnormality. This patient's information was entered into a reminder system with a target due date for their next mammogram.
== END 2023-07-29 08:04 | disposition home or self-care (01) ==
LOC: HO.MAMMO 08:03
PROVIDERS: PCP Internal Medicine; Visit Provider Internal Medicine
DX: Z12.31 Encounter for screening mammogram for malignant neoplasm of breast (principal)
CPT/HCPCS: 77063; 77067

== ENCOUNTER 2023-08-06 09:28 | Outpatient (AMB) | payer MEDICARE, SELFPAY ==
[2023-08-06 09:34] VITALS: BP 106/68; PULSE 90; O2SAT 99; BMI 21.8
--- NOTE | 2023-08-06 09:34 | MHC.PC.OV ---
Vital Signs 08/06/23 09:34 Height 4 ft 11 in Weight 108 lb BMI 21.8 BP 106/68 Blood Pressure Location Lt brachial Position Sitting Pulse 90 Pulse Source Pulse Oximeter Pulse Oximetry (%) 99 Oxygen Delivery Method Room Air Intake Visit Reasons: Pressure in bladder Intake Note: Pt is here today for a sikc visit. Pt c/o pressure in her bladder. Allergies carrot [CARROT] Allergy (Unknown, Verified 08/06/23 09:36) CAME BACK + IN TESTING - ABLE TO EAT THEM egg [EGG] Allergy (Unknown, Verified 08/06/23 09:36) DIARRHEA petrolatum,white [From Petroleum Jelly] Allergy (Unknown, Verified 08/06/23 09:36) SKIN FELT LIKE IT WAS ON FIRE erythromycin base Allergy (Verified 08/06/23 09:36) Unknown latex Allergy (Verified 08/06/23 09:36) rash Pxbderb-TBC-BjS Reductase Inhibitor Adverse Reaction (Intermediate, Verified 08/06/23 09:36) leg pain ENVIRONMENTAL Allergy (Unknown, Uncoded 08/06/23 09:36) ITCHY EYES percocet Allergy (Unknown, Uncoded 08/06/23 09:36) Itching Medication List - Last Reconciled 08/06/23 by Sherie Sandoval MD cholecalciferol (vitamin D3) 25 mcg PO DAILY ezetimibe (Zetia) 10 mg PO DAILY lisinopril 5 mg PO DAILY omega-3 fatty acids (Fish Oil Concentrate) 1,000 mg PO DAILY omeprazole 20 mg PO BID red yeast rice PO rosuvastatin (Crestor) 10 mg PO DAILY tolterodine ER 4 mg PO DAILY Tobacco use date assessed: 07/02/23 Dental Screening Dental Screen Date: 07/02/23 HPI Pressure in bladder HPI Details Patient complains of the pressure in vaginal area when standing for longer time. She denies dysuria abdominal pain nausea vomiting fever or chills. Hypertension hyperlipidemia are controlled on current medications. [facility] Medical History (Updated 08/06/23 @ 10:05 by Sherie Sandoval MD) Osteoporosis Vitamin D deficiency Postmenopausal Normal breast exam Dysplastic nevus GERD (gastroesophageal reflux disease) HTN (hypertension) Hyperlipidemia Annual physical exam Surgical History H/O colonoscopy Family History Father Heart problem Mother Hypertension Dementia Social History Housing: House Alcohol intake: never Patient Tobacco Use Status: Never used Tobacco e-Cigarette/Vaping Use: Never Used service: No Current occupational status: employed Cognitive needs: No Hearing needs: No Vision needs: Yes Questionnaire Thrive Questionnaire Date Thrive assessed: 12/31/22 KAYLEE-7 AMB Questionnaire KAYLEE-7 Date KAYLEE - 7 assessed: 12/31/22 Source: Developed by Drs. Evelio Hernández, Latasha Ponce, Elian Mckeon and colleagues, with an educational rahel from [employer]. Review of Systems Const All systems reviewed & are unremarkable except as noted in HPI and below ENT Reports no additional complaints Card Reports no additional complaints Resp Reports no additional complaints GI Reports no additional complaints Reports no additional complaints Physical exam (Primary Care) Vital Signs: Last Vital Signs Pulse 90 08/06/23 09:34 BP 106/68 08/06/23 09:34 Pulse Ox 99 08/06/23 09:34 Oxygen Delivery Method Room Air 08/06/23 09:34 BMI result Body Mass Index 21.8 Tobacco/Smoking Status: Tobacco use Status Tobacco use date assessed 07/02/23 08/06/23 09:38 Patient Tobacco Use Status Never used Tobacco 08/06/23 09:38 e-Cigarette/Vaping Use Never Used 08/06/23 09:38 Thrive Assessment: Date of Thrive Assessment Date Thrive assessed 12/31/22 08/06/23 09:38 Const General: no acute distress Eyes General: appearance normal, both eyes and all related structures Resp Effort & Inspection: normal respiratory effort Auscultation: clear to auscultation bilaterally Cardio Rhythm: regular rhythm Heart sounds: S1 normal heart sound present and S2 normal heart sound present GI Inspection: Yes normal to inspection Palpation (GI): Soft to palpation Percussion: Yes normal to percussion Auscultation: normal bowel sounds External Female Exam: normal external appearance Speculum Exam - Vagina: vagina atrophic Bimanual exam- vagina & uterus: uterus absent Bimanual Exam- Adnexa, other: cystocele Assessment and Plan Assessment & Plan (1) Female bladder prolapse: Code(s): N81.10 - Cystocele, unspecified Plan: Referred to urologist Orders: Referrals Urology Referral N81.10 - Cystocele, unspecified Coding Level of Care Code Est Pt Level 3 (49035) Diagnoses Female bladder prolapse N81.10
== END 2023-08-06 10:08 | disposition home or self-care (01) ==
PROVIDERS: PCP Internal Medicine; Visit Provider Internal Medicine
DX: N81.10 Cystocele, unspecified (principal)
CPT/HCPCS: 99213

== ENCOUNTER 2023-10-03 06:03 | Outpatient (REF) | payer MEDICARE, SELFPAY ==
[2023-10-03 11:00] LABS: Estimated Average Glucose 105 mg/dL; Hemoglobin A1c % 5.3 % (<6.0)
[2023-10-03 11:01] LABS: Alanine Aminotransferase 25 U/L (0-31); Albumin Level 4.4 g/dL (3.5-5.0); Alkaline Phosphatase 83 U/L (39-117); Anion Gap 11 (12-20); Aspartate Amino Transferase 28 U/L (5-31); Bilirubin Total 0.7 mg/dL (0.0-1.0); Blood Urea Nitrogen 16 mg/dL (9-16); Calcium 9.5 mg/dL (8.4-10.2); Carbon Dioxide 31 mmol/L (22-29); Chloride 103 mmol/L (96-108); Cholesterol 145 mg/dL (<200); Estimated Glomerular Filt Rate > 60; Glucose Fasting 108 mg/dL (60-99); HDL Cholesterol 55 mg/dL (>40); LDL Cholesterol Calculated 60 mg/dL (<100); Potassium 4.3 mmol/L (3.3-5.1); Sodium 141 mmol/L (135-145); Triglycerides 154 mg/dL (<150)
== END 2023-10-03 06:04 | disposition home or self-care (01) ==
LOC: HO.HMGCLDS 06:03
PROVIDERS: PCP Internal Medicine; Visit Provider Internal Medicine
DX: I10 Essential (primary) hypertension (principal); E78.5 Hyperlipidemia, unspecified; R73.9 Hyperglycemia, unspecified
CPT/HCPCS: 36415; 80053; 80061; 83036

== ENCOUNTER 2024-01-16 06:06 | Outpatient (REF) | payer MEDICARE, SELFPAY ==
[2024-01-16 10:06] LABS: Basophils Absolute Auto 0.1 X10*3/uL (0.0-0.2); Eosinophils Absolute Auto 0.2 X10*3/uL (0.0-0.4); Eosinophils Percent Auto 3.9 % (0-4); Hematocrit 44.9 % (37.0-47.0); Hemoglobin 15.7 g/dl (12.0-16.0); Imm Gran Abs Auto 0.02 X10*3/uL (0.00-0.03); Imm Gran Pct Auto 0.4 % (0.0-0.4); Lymphocytes Absolute Auto 1.4 X10*3/uL (1.2-4.9); Lymphocytes Percent Auto 29.2 % (20-40); MANUAL DIFF FLAG NO; Mean Corpuscular Hemoglobin 33.3 pg (27.0-33.0); Mean Corpuscular Volume 95.3 fL (80.0-98.0); Mean Platelet Volume 10.4 fL (9.4-12.3); Monocytes Absolute Auto 0.4 X10*3/uL (0.1-1.2); Monocytes Percent Auto 8.6 % (2-11); Neutrophils Absolute Auto 2.8 x10*3/uL (2.0-8.3); Neutrophils Percent Auto 56.9 % (45-73); Platelet Count 198 X10*3/uL (160-400); Red Blood Count 4.71 X10*6/uL (4.20-5.50); Red Cell Distribution Width 11.9 % (11.0-16.0); White Blood Count 4.9 X10*3/uL (4.8-10.8)
[2024-01-16 11:33] LABS: Estimated Average Glucose 108 mg/dL; Hemoglobin A1C 143.8304 umol/L; Hemoglobin A1c % 5.4 % (<6.0); Total Hemoglobin (HGBA1C) 4074.2102 umol/L
[2024-01-16 12:26] LABS: Alanine Aminotransferase 27 U/L (0-31); Albumin Level 4.5 g/dL (3.5-5.0); Anion Gap 14 (12-20); Aspartate Amino Transferase 40 U/L (5-31); Bilirubin Total 1.1 mg/dL (0.0-1.0); Blood Urea Nitrogen 17 mg/dL (9-16); Calcium 10.2 mg/dL (8.4-10.2); Carbon Dioxide 29 mmol/L (22-29); Chloride 103 mmol/L (96-108); Cholesterol 173 mg/dL (<200); Estimated Glomerular Filt Rate > 60; Glucose Fasting 104 mg/dL (60-99); HDL Cholesterol 61 mg/dL (>40); LDL Cholesterol Calculated 85 mg/dL (<100); Potassium 4.3 mmol/L (3.3-5.1); Sodium 142 mmol/L (135-145); TSH reflex Free T4 1.42 uIU/mL (0.32-4.0); Total Protein 7.3 g/dL (6.5-8.0); Triglycerides 137 mg/dL (<150)
[2024-01-16 12:55] LABS: Alkaline Phosphatase 74 U/L (39-117)
== END 2024-01-16 06:07 | disposition home or self-care (01) ==
LOC: HO.HMGCLDS 06:06
PROVIDERS: PCP Internal Medicine; Visit Provider Internal Medicine
DX: M81.0 Age-related osteoporosis without current pathological fracture (principal); E78.5 Hyperlipidemia, unspecified; I10 Essential (primary) hypertension; R73.9 Hyperglycemia, unspecified
CPT/HCPCS: 36415; 80053; 80061; 83036; 84443; 85025

== ENCOUNTER 2024-01-21 11:16 | Outpatient (AMB) | payer MEDICARE, SELFPAY ==
[2024-01-21 11:21] VITALS: BP 118/74; PULSE 83; O2SAT 95; BMI 23.4
--- NOTE | 2024-01-21 11:21 | MHC.PC.OV ---
Vital Signs 01/21/24 11:21 Height 4 ft 11 in Weight 116 lb BMI 23.4 BP 118/74 Blood Pressure Location Lt brachial Position Sitting Pulse 83 Pulse Source Pulse Oximeter Pulse Oximetry (%) 95 Oxygen Delivery Method Room Air Intake Visit Reasons: PE Allergies carrot [CARROT] Allergy (Unknown, Verified 01/21/24 11:23) CAME BACK + IN TESTING - ABLE TO EAT THEM egg [EGG] Allergy (Unknown, Verified 01/21/24 11:23) DIARRHEA petrolatum,white [From Petroleum Jelly] Allergy (Unknown, Verified 01/21/24 11:23) SKIN FELT LIKE IT WAS ON FIRE erythromycin base Allergy (Verified 01/21/24 11:23) Unknown latex Allergy (Verified 01/21/24 11:23) rash Vyunypl-NBJ-QjN Reductase Inhibitor Adverse Reaction (Intermediate, Verified 01/21/24 11:23) leg pain ENVIRONMENTAL Allergy (Unknown, Uncoded 01/21/24 11:23) ITCHY EYES percocet Allergy (Unknown, Uncoded 01/21/24 11:23) Itching Medication List - Last Reconciled 01/21/24 by Sherie Sandoval MD cholecalciferol (vitamin D3) 25 mcg PO DAILY ezetimibe (Zetia) 10 mg PO DAILY lisinopril 5 mg PO DAILY omega-3 fatty acids (Fish Oil Concentrate) 1,000 mg PO DAILY omeprazole 20 mg PO BID red yeast rice PO rosuvastatin (Crestor) 10 mg PO DAILY tolterodine ER 4 mg PO DAILY Tobacco use date assessed: 01/21/24 Fall risk assessment: No Falls in past year Last assessed Fall Risk: 01/21/24 Dental Screening Dental Screen Date: 07/02/23 HPI PE HPI Details Pt presents for PE. HTN and hyperlipid, stable on meds. PFSH Medical History Osteoporosis Vitamin D deficiency Postmenopausal Normal breast exam Dysplastic nevus GERD (gastroesophageal reflux disease) HTN (hypertension) Hyperlipidemia Annual physical exam Surgical History H/O colonoscopy Family History Father Heart problem Mother Hypertension Dementia Social History Housing: House Alcohol intake: never Patient Tobacco Use Status: Never used Tobacco e-Cigarette/Vaping Use: Never Used service: No Current occupational status: employed Cognitive needs: No Hearing needs: No Vision needs: Yes Questionnaire PHQ-9 Over the last 2 weeks, how often have you been bothered by any of the following problems? 1. Little interest or pleasure in doing things: not at all 2. Feeling down, depressed, or hopeless: not at all 3. Trouble falling or staying asleep, or sleeping too much: not at all 4. Feeling tired or having little energy: not at all 5. Poor appetite or overeating: not at all 6. Feeling bad about yourself - or that you are a failure or have let yourself or your family down: not at all 7. Trouble concentrating on things, such as reading the newspaper or watching television: not at all 8. Moving or speaking so slowly that other people could have noticed. Or the opposite - being so fidgety or restless that you have been moving around a lot more than usual: not at all 9. Thoughts that you would be better off or of hurting yourself in some way: not at all Total score: 0 Depression Screening Interpretation: Negative Depression Screening Done: Yes 75954 - PHQ-9 Billing: Yes Source: Developed by Drs. Evelio Hernández, Latasha Ponce, Elian Mckeon and colleagues, with an educational rahel from [employer]. Thrive Questionnaire Date Thrive assessed: 01/21/24 I am a: Patient What is your living situation today?: I have a steady place to live Within the past 12 months, did the food you bought not last and you didn't have the money to get more?: Never true Within the past 12 months, did you worry whether your food would run out before you got money to buy more?: Never true Do you have trouble paying for medicines?: No Do you have trouble getting transportation to medical appointments?: No Do you have trouble paying your heating and electricity bill?: No Do you have trouble taking care of your child, family member or friend?: No Do you have trouble with day-to-day activities such as bathing, preparing meals, shopping, managing finances, etc.?: No Are you currently unemployed and looking for a job?: No Are you interested in more education?: No Please select the resources that you would like help with: None Currently or been in a relationship where the following occur: No concerns reported THRIVE Score: 0 AUDIT C Alcohol Use Questionnaire (AUDIT-C) 1. How often do you have a drink containing alcohol?: Monthly or less 2. How many drinks containing alcohol do you have on a typical day when you are drinking?: 1 or 2 3. How often do you have six or more drinks on one occasion?: Never Total Score: 1 KAYLEE-7 AMB Questionnaire KAYLEE-7 Date KAYLEE - 7 assessed: 01/21/24 Feeling nervous, anxious, or on edge: 0 = Not at all Not being able to stop or control worryin = Several days Worrying too much about different things: 1 = Several days Trouble relaxin = Not at all Being so restless that it is hard to sit still: 0 = Not at all Becoming easily annoyed or irritable: 0 = Not at all Feeling afraid as if something awful might happen: 0 = Not at all Total KAYLEE-7 score (0-4 normal; 5-9 mild; 10-14 moderate; 15-21 severe): 2 Source: Developed by Drs. Evelio Hernández, Latasha Ponce, Elian Mckeon and colleagues, with an educational rahel from [employer]. Review of Systems Const All systems reviewed & are unremarkable except as noted in HPI and below Eyes Reports no additional complaints ENT Reports no additional complaints Card Reports no additional complaints Resp Reports no additional complaints GI Reports no additional complaints Physical exam (Primary Care) Vital Signs: Last Vital Signs Pulse 83 01/21/24 11:21 BP 118/74 01/21/24 11:21 Pulse Ox 95 01/21/24 11:21 Oxygen Delivery Method Room Air 01/21/24 11:21 BMI result Body Mass Index 23.4 Tobacco/Smoking Status: Tobacco use Status Tobacco use date assessed 01/21/24 01/21/24 11:25 Patient Tobacco Use Status Never used Tobacco 01/21/24 11:25 e-Cigarette/Vaping Use Never Used 01/21/24 11:25 PHQ-9: PHQ-9 Score PHQ-9: Total score 0 01/21/24 11:25 Depression Screening Interpretation: Negative Thrive Assessment: Date of Thrive Assessment Date Thrive assessed 01/21/24 01/21/24 11:25 Currently or been in a relationship where the following occur: No concerns reported Const General: no acute distress HENMT Head: Yes normal to inspection Ears: hearing grossly normal bilaterally Mouth: Normal oral and palatal mucosa present Throat: Yes posterior oropharynx normal Eyes General: appearance normal, both eyes and all related structures Neck Neck: Yes no lymphadenopathy and Yes supple Resp Effort & Inspection: normal respiratory effort Auscultation: clear to auscultation bilaterally Cardio Rhythm: regular rhythm Heart sounds: S1 normal heart sound present and S2 normal heart sound present GI Inspection: Yes normal to inspection Palpation (GI): Soft to palpation Percussion: Yes normal to percussion Auscultation: normal bowel sounds Coding Level of Care Code Est Pt Prev Care >65y(12256) Diagnoses Annual physical exam Z00.00 Hyperlipidemia E78.5 HTN (hypertension) I10 Hyperglycemia R73.9 Additional Codes PHQ-9 - 43785 - PHQ-9 Billing: Yes ([id number]) Assessment & Plan Assessment & Plan (1) Annual physical exam: Code(s): Z00.00 - Encounter for general adult medical examination without abnormal findings Category: Medical Plan: Well-balanced diet regular physical activity discussed with the patient she is up-to-date with mammogram and colonoscopy (2) Hyperlipidemia: Comment: Tolerating crestor Code(s): E78.5 - Hyperlipidemia, unspecified Category: Medical Plan: Patient will continue Crestor and stop Zetia check lipid profile in 6 months continue low-cholesterol diet (3) HTN (hypertension): Code(s): I10 - Essential (primary) hypertension Category: Medical Plan: Continue lisinopril (4) Hyperglycemia: Code(s): R73.9 - Hyperglycemia, unspecified Category: Medical Plan: Continue ADA diet A1c was 5.3 Orders: Orders Comprehensive [place]. Panel Fast 6 Months E78.5 - Hyperlipidemia, unspecified, I10 - Essential (primary) hypertension, R73.9 - Hyperglycemia, unspecified, Z00.00 - Encounter for general adult medical examination without abnormal findings TSH reflex Free T4 6 Months E78.5 - Hyperlipidemia, unspecified, I10 - Essential (primary) hypertension, R73.9 - Hyperglycemia, unspecified, Z00.00 - Encounter for general adult medical examination without abnormal findings Complete Blood Count Auto Diff 6 Months E78.5 - Hyperlipidemia, unspecified, I10 - Essential (primary) hypertension, R73.9 - Hyperglycemia, unspecified, Z00.00 - Encounter for general adult medical examination without abnormal findings Lipid Panel 6 Months E78.5 - Hyperlipidemia, unspecified, I10 - Essential (primary) hypertension, R73.9 - Hyperglycemia, unspecified, Z00.00 - Encounter for general adult medical examination without abnormal findings Medications: Changed From rosuvastatin (Crestor) 10 mg PO DAILY 90 tabs 1RF To rosuvastatin 10 mg PO DAILY 90 tabs 3RF Refilled lisinopril 5 mg PO DAILY 90 tabs 3RF tolterodine ER 4 mg PO DAILY 90 caps 3RF omeprazole 20 mg PO BID 180 caps 3RF Discontinued ezetimibe (Zetia) Discontinued Reason: Doctor's Order 10 mg PO DAILY 90 tabs 3RF
== END 2024-01-21 11:54 | disposition home or self-care (01) ==
PROVIDERS: PCP Internal Medicine; Visit Provider Internal Medicine
DX: Z00.00 Encounter for general adult medical examination without abnormal findings (principal); E78.5 Hyperlipidemia, unspecified; I10 Essential (primary) hypertension; R73.9 Hyperglycemia, unspecified

== ENCOUNTER → 2024-01-21 11:16 | Outpatient (BNVA) | payer MEDICARE, SELFPAY | PROVIDERS: PCP Internal Medicine; Visit Provider Internal Medicine | DX: Z00.00 Encounter for general adult medical examination without abnormal findings (principal); E78.5 Hyperlipidemia, unspecified; I10 Essential (primary) hypertension; R73.9 Hyperglycemia, unspecified | CPT/HCPCS: 96127; 99397 ==

== ENCOUNTER 2024-04-23 14:25 | Outpatient (AMB) | payer MEDICARE, SELFPAY ==
--- OUTSIDE RECORDS SUMMARY | 2024-04-23 14:26 | XMS_ITS ---
Author Organization [facility] Address [address] [place] [address] Care Team Providers Care Sports Director Name Role Phone Sherie Sandoval MD Primary Care Provider UnavailEulalia Matute Unavailable [phone] Rupinder Beyer Unavailable [phone] Allergies Allergen (clinical drug ingredient) Drug/Non Drug [...] Negative Encounters Encounter Location Date Provider Diagnosis [facility] [address] [place] [address] 04/15/2024 Rupinder Beyer Plan Of Treatment Next Appt Details Provider Name:Eulalia navarro, 06/02/2024 09:30:00 AM, [address] [place], [address], Progress Notes * Ann ROSALES GDOB:1950 (73 yo M)Acc No.[id number]:04/15/2024 Progress Notes Patient:Ann BURKS Provider:?Rupinder Beyer DPM :1950???Age:73 Y???Sex:Male Frederick e:04/15/2024 Address:[address] [place], [place] [id number] Pcp:Sherie Sandoval MD Subjective: * Chief Complaints: * ???1. Dr Jack. * ROS:?General/Constitutional:?Nausea?denies.?Vomiting?denies.?Hunger Thirst?denies.?Loss appetite?denies.?Chills?denies.?Fatigue?denies.?Fever?denies.?Night Sweats?denies.?Unexplained weight loss?denies.?Unexplained weight gain?denies.?HEENTM:?Dentures?denies.?Dizziness?denies.?Glasses/contacts?admits.?Retinopathy?de nies.?Blurred/double vision?denies.?TMJ?denies.?Discharge/drainage?denies.?Implants?denies.?Sore throat?denies.?Dental implants?denies.?Hard of hearing ?denies.?Difficulty chewing/swallowing/speaking?denies.?Nose bleeds?denies.?Sore mouth?denies.?Respiratory:?On Oxygen?denies.?Pneumonia/pleurisy?denies.?Bronchitis?denies.?Emphysema?denies.?C oughing?denies.?Cough blood?denies.?Shortness of breath?denies.?Wheezing?denies.?Cardiovascular:?Pacemaker?denies.?MVP?denies.?WPW?denies.?CHF?denies.?Heart attack?denies.?Septal defect?denies.?Rapid beat?denies.?Chest pain ?denies.?Atrial Fib.?denies.?Murmur/Palpitations?denies.?Gastrointestinal:?Hemorrhoids?denies.?Stomach/Abdominal pain?denies.?Dark blood stool?denies.?Irritable bowel ?denies.?Constipation?denies.?Diarrhea?denies.?Hematology:?Swelling?denies.?Clots?denies.?Varicose Veins?admits.?Bruising?denies.?Bleeding problem?denies.?Genitourinary:?Blood urine?denies.?Frequent/Painfu/urination/bladder control?admits.?Kidney stones?denies.?Infection (UTI)?denies.?Nephropathy?denies.?sex trans dis (STD)?denies.?Prostate?denies.?Musculoskeletal:?Hammertoes?denies.?Bunions?denies.?Back Pain?denies.?Muscle Cramps/ Resting?denies.?Muscle cramps / walking?denies.?Generalized aches and pains?admits.?Weakness?denies.?Integ.:?Shanks?denies.?Scars?denies.?Corns/calluses?denies.?Ingrown nails?admits.?Painful nails?denies.?Open Sores?denies.?Rashes?denies.?Neurologic:?Difficulty sleeping?denies.?Brain disorder?denies.?Numbness?admits.?Balance trouble?denies.?Confusion?denies.?Fainting/blackouts?denies.?Tingling?denies.?Tr emors?denies.? * Medical History:?Covid-19, O steoporosis, Measles, Mumps, Chicken pox, Shingles. * Surgical History:?hysterecto my 2004, Knee tear right 2011. * Family History:?Mother: dece ased, high blood pressure, diagnosed with Unspecified essential hypertension.?Father: , cancer,heart attack,poor circulation, diagnosed with Other malignant neoplasm of unspecified site, Unspecified heart disease.?Siblings: diagnosed with Diabetic - NIDDM.? * Social History:?Tobacco Use:?Tobacco use other than smoking?Are you an other tobacco user??No ?Tobacco Control (Standard)?Tobacco use:?Nonsmoker ?Additional Findings: Tobacco non-user?Current nonsmoker ???Drugs/Alcohol:?Drugs?Have you used drugs other than those for medical reasons in the past 12 months??No ???Miscellaneous:?Caffeine: yes, frequency:. ?Children: yes, 1. ?Marital status: . 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 ???Drug/Alcohol:?AUDIT-C (Standard)?Did you have a drink containing alcohol in the past year??No ?Points?0 ?Interpretation?Negative * Medications:?Taking Fish Oil 1000 MG Capsule 1 capsule [...] 2 tablets Orally Once a day * Allergies:?Latex: Rash. Objective: * Vitals:? Assessment: Plan: * Treatment: * Images: * The named appointment provid er may or may not be the originator of this progress note, and it is not deemed complete until electronically signed by the appointment provider. Sign off status: Pending * Provider:?Rupinder Beyer DPM Date:?0 04/15/2024 Generated for Rogelio pedraza/Elfego/Olya on:?04/23/2024 02:26 PM EST
--- OUTSIDE RECORDS SUMMARY | 2024-04-23 14:26 | XMS_ITS | Patient Health Record ---
Author [facility] Address [address] [place] [address] Care Team Providers Care Carpentry Instructor Name Role Phone Sherie Sandoval MD Primary Care Provider UnavailEulalia Matute Unavailable [phone] Mariusz Davidson Unavailable [phone] Rupidner Beyer Unavailable [phone] Allergies Allergen (clinical drug ingredient) Drug/Non Drug Allergy documented on EMR Reaction Allergy Type Onset Date Status Latex Latex Rash Allergy Active Reason For Referral No Information Medications Medication SIG (Take, Route, Frequency, Duration) Notes Start Date End Date Status Tolterodine Tartrate ER 4 MG 1 capsule Orally Once a day Active Omeprazole 20 MG 1 capsule 1/2 to 1 h our before morning meal Orally Once a day Active Lisinopril 5 MG 2 tablets Orally Onc e a day Active Fish Oil 1000 MG 1 capsule Orally Thr ee times a day Active Magnesium 400 MG as directed Orally Active Qunol CoQ10/Ubiquinol/Mumtaz Active Rosuvastatin Calcium 20 MG 1 tablet Oral ly Once a day Active Vitamin D3 125 MCG (5000 UT) 1 capsule Orally Once a day Active Social History Tobacco Use: Social History [...] ast year? No Points 0 Interpretation Negative Plan Of Treatment Next Appt Details Provider Name:Eulalia navarro, 06/02/2024 09:30:00 AM, [address] [place], [address], Insurance Providers Payer Name Payer Address Payer Phone Subscriber Number Group Number Insured Name Patient Relationship to Insured Coverage Start Date Coverage End Date [facility] 65 Medicare Preferred [address] [place] [address] [id number] Ann Saab Self - patient is the insured Medical (General) History Medical History History ICD Code covid-19 Osteoporosis Measles Mumps Chicken pox Shingles Surgical History Surgery Date(Month/Year) hysterectomy 2005 Knee tear right 2011
--- OUTSIDE RECORDS SUMMARY | 2024-04-23 14:27 | XMS_ITS ---
Author Organization [facility] Address [address] [place] [address] Care Team Providers Care Counter Waitress/Waiter Name Role Phone Sherie Sandoval MD Primary Care Provider Unavaila Eulalia Fraga Unavailable [phone] Mariusz Davidson Unavailable [phone] Encounters Encounter Location Date Provider Diagnosis [address] [address] 02/17/2024 Mariusz Davidson Plan Of Treatment Next Appt Details Provider Name:Eulalia navarro, 06/02/2024 09:30:00 AM, [address] [place] [address], [address], Progress Notes * Ann ROSALES GDOB:1950 (73 yo M)Acc No.[id number]:02/17/2024 Progress Notes Patient:?Ann ROSALES Provider:?Mariusz Davidson DPM :1950???Age:73 Y???Sex:Male Frederick e:02/17/2024 Address:[address] [place] [address] Pcp:Sherie Sandoval MD Subjective: * Chief Complaints: * ??? * Medical History:? Objective: * Vitals:? Assessment: Plan: * Treatment: * Images: * The named appointment provid er may or may not be the originator of this progress note, and it is not deemed complete until electronically signed by the appointment provider. Sign off status: Pending * Provider:?Mariusz Davidson DPM Date:?2023 Generated for Rogelio pedraza/Elfego/eTransmitting on:?04/23/2024 02:26 PM EST
--- OUTSIDE RECORDS SUMMARY | 2024-04-23 14:27 | XMS_ITS ---
Author Organization [facility] Address [address] [place] [address] Care Team Providers Care Rider Ticket Worker Name Role Phone Sherie Sandoval MD Primary Care Provider Unavaila Evelio Tobias Unavailable [phone] Peewee Najera Unavailable Unavailable REASON FOR VISIT diarrhea Encounters Encounter Location Date Provider Diagnosis [facility] [address] [place] [address] 11/01/2022 Evelio Tapia PLAN OF TREATMENT No Information
--- OUTSIDE RECORDS SUMMARY | 2024-04-23 14:27 | XMS_ITS | Patient Health Record ---
Author Organization [facility] Address [address] [place] [address] Care Team Providers Care Field Mechanic Name Role Phone Sherie Sandoval MD Primary Care Provider Unavaila Evelio Tobias Unavailable [phone] Peewee Najera Unavailable Unavailable ALLERGIES Allergen (clinical drug ingredient) Drug/Non Drug Allergy documented on EMR Reaction Allergy Type Onset Date Status erythromycin Erythromycin Unknown Drug Allergy A ctive REASON FOR REFERRAL No Information MEDICATIONS Medication SIG (Take, Route, Fr equency, Duration) Notes Start Date End Date Status Detrol Active CoQ-10 200 MG 1 capsule with a blaise l Orally Once a day Active Fish Oil 1200 MG 1 capsule Orally Once a day Active Vitamin D Active Lisinopril 5 MG 1 tablet Orally Once a day Active Omeprazole 20 MG 1 capsule Orally Once a day Active Tolterodine Tartrate ER Active Red Yeast Rice 600 MG 2 Orally qd Active Ezetimibe Active SOCIAL HISTORY Sex Assigned At : Social History Observation Description Sex Assigned At Unknown PROBLEMS Problem Type ICD Code Onset Dates Problem Status W/U Status Risk SNOMED Code Notes Problem Encounter for screening for malignant neoplasm of colon (Z12.11) Active confirmed 564170449 Problem History of adenomatous polyp of colon (Z86.010) Active confirmed 781114569 Problem Change in bowel habits (R19.4) Active confirmed 56558604 Problem 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) Active confirmed 304143058 Problem Diverticulosis of large intestine without perforation or abscess without bleeding (K57.30) Active confirmed Diverticul ar disease of colon (929943935) Problem Gastroesophageal reflux disease without esophagitis (K21.9) Active confirmed 177592604 Problem Screening for colon cancer (Z12.11) Active confirmed 983542420 Problem Gastric polyps (K31.7) Active confirmed 41644605 Problem Diarrhea, unspecified type (R19.7) Active confirmed 16930958 PLAN OF TREATMENT Pending Test Test Name Order Date CELIAC PANEL #10 07/09/2022 STOOL WBC 06/14/2022 C DIFFICILE RFLX PCR 06/14/2022 Pathology 08/30/2022 Future Test Test Name Order Date UPPER GI ENDOSCOPY 11/15/2014 COLONOSCOPY 04/09/2017 COLONOSCOPY 07/09/2022 Insurance Providers Payer Name Payer Address Payer Phone Subscriber Number Group Number Insured Name Patient Relationship to Insured Coverage Start Date Coverage End Date [facility] [address] [place] [address] [id number] STEPHANE ROSALES Self - patient is the insured MEDICAL (GENERAL) HISTORY Medical History History ICD Code HTN Denies AR,DM,CVA,Lung disease,renal dise ase Colonoscopy 02-21-2005- sma ll tubular adenoma removed, sigmoid diverticulosis, internal/external hemorrhoids; negative colonoscopy in December of 2010 Overactive bladder GERD--she had a negative abd ominal U/S in 2008--EGD in 12/2014--small HH, no esophagitis, no Mora's Neg. ETT in 04/2014 when she was admitted for chest pain--- it was felt that her chest pain was probably related to esophageal spasm due to her GERD Colonoscopy 06/2017 with a small tubular adenoma Surgical History Surgery Date(Month/Year) Complete hysterectomy for fibroids Cyst removal-hands--ganglions Knee surgery-right
--- NOTE | 2024-04-23 14:48 | AM.OFFWIN_ITS ---
Intake Vital Signs 04/23/24 14:49 Weight 120 lb BP 118/64 Blood Pressure Location Lt brachial Position Sitting Pulse 90 Pulse Source Pulse Oximeter Pulse Oximetry (%) 96 Oxygen Delivery Method Room Air Intake Visit Reasons: EP pain from the LT back side toward the front Intake Note: Patient here for left sided back/shoulder pain that started today Patient Tobacco Use Status: Never used Tobacco Allergies carrot [CARROT] Allergy (Unknown, Verified 04/23/24 14:50) CAME BACK + IN TESTING - ABLE TO EAT THEM egg [EGG] Allergy (Unknown, Verified 04/23/24 14:50) DIARRHEA petrolatum,white [From Petroleum Jelly] Allergy (Unknown, Verified 04/23/24 14:50) SKIN FELT LIKE IT WAS ON FIRE erythromycin base Allergy (Verified 04/23/24 14:50) Unknown latex Allergy (Verified 04/23/24 14:50) rash Yvqklvg-CVS-JhX Reductase Inhibitor Adverse Reaction (Intermediate, Verified 04/23/24 14:50) leg pain ENVIRONMENTAL Allergy (Unknown, Uncoded 04/23/24 14:50) ITCHY EYES percocet Allergy (Unknown, Uncoded 04/23/24 14:50) Itching Do you need a note to return to daycare/school/sports/work: No HPI HPI Comments History of Present Illness Details History of Present Illness - The patient is a 73-year-old female pr esenting with left shoulder pain. - She reports she woke up with mild back pain around the upper back/right shoulder blade with no precipitating trauma events. - Pain elevated from mild to severe acro ss one day, worsened with shoulder movements like coat removal. - Denies associated chest pain, episodes of sweating, shortness of breath, neck pain, abdominal pain, or neurological symptoms. Previously experienced mild dizziness without correlation to current issue. - Maintains a history of hypertension ma naged with Lisinopril, statin usage, and tolterodine for urinary frequency. - No lifestyle or environmental changes account for musculoskeletal trauma. - Patient previously had herpes zoster i n 1999. - Denies family or personal history of c ardiac conditions . Physical Exam General: Cooperative, healthy appearing, comfortable, no acute distress and well developed Orientation: Patient oriented x3 Limitations: No limitations Head: Normal to inspection Ears: Hearing grossly normal bilaterally Nose: Normal external nose present Face and sinus: Normal facial exam Eyes: Appearance normal, both eyes and all related structures Neck: Normal visual inspection and Yes full ROM Respiratory: Normal respiratory effort and able to speak in complete sentences. Clear to auscultation bilaterally Cardiovascular: Regular rate and rhythm. Normal S1 and S2 Skin: No rashes or lesions noted Neuro: Patient oriented x3 Extremities: Normal to inspection, TTP of upper left sided back and chest, normal ROM but pain with movement. [facility] Medical History Osteoporosis Vitamin D deficiency Postmenopausal Normal breast exam Dysplastic nevus GERD (gastroesophageal reflux disease) HTN (hypertension) Hyperlipidemia Annual physical exam Surgical History H/O colonoscopy Family History Father Heart problem Mother Hypertension Dementia Social History Housing: House Alcohol intake: never Patient Tobacco Use Status: Never used Tobacco e-Cigarette/Vaping Use: Never Used service: No Current occupational status: employed Cognitive needs: No Hearing needs: No Vision needs: Yes Review of Systems Const All systems reviewed & are unremarkable except as noted in HPI and below Physical Exam Vital Signs: Last Vital Signs Pulse 90 04/23/24 14:49 BP 118/64 04/23/24 14:49 Pulse Ox 96 04/23/24 14:49 Oxygen Delivery Method Room Air 04/23/24 14:49 Office Procedures EKG 62270-Blzjtjdoumvisrfln, Complete Assessment & Plan Assessment & Plan (1) Shoulder pain, left: Code(s): M25.512 - Pain in left shoulder Qualifiers: Chronicity: acute Qualified Code(s): M25.512 - Pain in left shoulder Plan: The patient presents with musculoskeletal thoracic pain, likely due to muscle spasm, given the sudden onset without trauma. Our differential diagnosis inclu sebastien herpes zoster in the T1/T2 dermatome, particularly considering a history of shingles, and musculoskeletal injury or strain. We decided on sending a prescription for Valacylovir in case she develops a rash in the next few days as it is the weekend. She knows not to pick it up unless she develops the rash. Explained dermatomes and treatmtent. The potential prodrome of herpes zoster is noted, advising monitoring for skin eruptions. An EKG is ordered to exclude cardiac causes due to the symptom location, very low suscpicion for ACS given reproducible pain. EKG was NSR 88BPM, with no acute changes. Musculoskeletal pain will be managed symptomatically with NSAIDS and rest. The importance of follow-up is stressed, particularly if worsening symptoms or herpetic signs develop. No fractures are currently suspected, but deeper musculoskeletal evaluation may be needed if the condition persists. Patient was informed and verbally consented to the use of an ambient scribe for clinic note documentation during this visit. Medications: New naproxen 500 mg PO Q12H PRN 20 tabs 0RF pain valacyclovir 1,000 mg PO Q8H 7 days 21 tabs 0RF Coding Level of Care Code Est Pt Level 4 (29394) Diagnoses Acute pain of left shoulder M25.512 Chronicity: acute CPT Codes EKG - CPT: 44933-Vuoiubdmcfsqkarff, Complete ([id number])
[2024-04-23 14:49] VITALS: BP 118/64; PULSE 90; O2SAT 96
== END 2024-04-23 15:35 | disposition home or self-care (01) ==
PROVIDERS: PCP Internal Medicine; Visit Provider Physician Assistant
DX: M25.512 Pain in left shoulder (principal)

== ENCOUNTER → 2024-04-23 14:25 | Outpatient (BNVA) | payer MEDICARE, SELFPAY | PROVIDERS: PCP Internal Medicine | DX: M25.512 Pain in left shoulder (principal); I10 Essential (primary) hypertension | CPT/HCPCS: 93005; 99212 ==

== ENCOUNTER 2024-05-14 12:24 | Outpatient (AMB) | payer MEDICARE, SELFPAY ==
--- NOTE | 2024-05-14 12:39 | A.OFFPC_ITS ---
Vital Signs 05/14/24 13:02 Height 4 ft 11 in Weight 116 lb BMI 23.4 BP 120/74 Blood Pressure Location Lt brachial Position Sitting Respiration 18 Pulse 81 Pulse Source Pulse Oximeter Temp 97.6 F Temp Source Oral Pulse Oximetry (%) 95 Oxygen Delivery Method Room Air Intake Visit Reasons: Pain in Left Breast Intake Note: Pt is here today for a sick visit. Pt c/o pain on top of her L breast. Pt states that she was seen on 04/23/24 in the walk in and she was dx with shingles but there was no rash. Pt states that she has been feeling lightheaded. Allergies carrot [CARROT] Allergy (Unknown, Verified 05/14/24 13:07) CAME BACK + IN TESTING - ABLE TO EAT THEM egg [EGG] Allergy (Unknown, Verified 05/14/24 13:07) DIARRHEA petrolatum,white [From Petroleum Jelly] Allergy (Unknown, Verified 05/14/24 13:07) SKIN FELT LIKE IT WAS ON FIRE erythromycin base Allergy (Verified 05/14/24 13:07) Unknown latex Allergy (Verified 05/14/24 13:07) rash Tkbtkih-ZTJ-OmC Reductase Inhibitor Adverse Reaction (Intermediate, Verified 05/14/24 13:07) leg pain ENVIRONMENTAL Allergy (Unknown, Uncoded 05/14/24 13:07) ITCHY EYES percocet Allergy (Unknown, Uncoded 05/14/24 13:07) Itching Medication List - Last Reconciled 05/14/24 by Sherie Sandoval MD cholecalciferol (vitamin D3) 25 mcg PO DAILY lisinopril 5 mg PO DAILY naproxen 500 mg PO Q12H PRN omega-3 fatty acids (Fish Oil Concentrate) 1,000 mg PO DAILY omeprazole 20 mg PO BID red yeast rice PO rosuvastatin 10 mg PO DAILY tolterodine ER 4 mg PO DAILY Tobacco use date assessed: 05/14/24 Fall risk assessment: No Falls in past year Last assessed Fall Risk: 05/14/24 Dental Screening Dental Screen Date: 05/14/24 Did you have a dental visit in the last 12 months?: Yes Did you have a dental problem in the last 6 months where you did not have access to dental care?: No Was dental information given to patient?: Patient has dentist HPI Pain in Left Breast HPI Details Pt presents for the follow-up of walk in visit for L scapular pain radiating to L upper chest for 2 weeks, stabbing like sensation worse with change in body position. Patient has been taking naproxen and pain has decreased significantly. she still reports discomfort in the left upper chest area. Patient denies cough fever chills pleurisy shortness or breath. Patient never developed a rash PFSH Medical History Osteoporosis Vitamin D deficiency Postmenopausal Normal breast exam Dysplastic nevus GERD (gastroesophageal reflux disease) HTN (hypertension) Hyperlipidemia Annual physical exam Surgical History H/O colonoscopy Family History Father Heart problem Mother Hypertension Dementia Social History Housing: House Alcohol intake: never Patient Tobacco Use Status: Never used Tobacco e-Cigarette/Vaping Use: Never Used service: No Current occupational status: employed Cognitive needs: No Hearing needs: No Vision needs: Yes Questionnaire PHQ-9 Over the last 2 weeks, how often have you been bothered by any of the following problems? 1. Little interest or pleasure in doing things: not at all 2. Feeling down, depressed, or hopeless: not at all 3. Trouble falling or staying asleep, or sleeping too much: several days 4. Feeling tired or having little energy: not at all 5. Poor appetite or overeating: not at all 6. Feeling bad about yourself - or that you are a failure or have let yourself or your family down: not at all 7. Trouble concentrating on things, such as reading the newspaper or watching television: not at all 8. Moving or speaking so slowly that other people could have noticed. Or the opposite - being so fidgety or restless that you have been moving around a lot more than usual: not at all 9. Thoughts that you would be better off or of hurting yourself in some way: not at all Total score: 1 Depression Screening Interpretation: Negative Depression Screening Done: Yes 49435 - PHQ-9 Billing: Yes Source: Developed by Drs. Evelio L. Edgar, Elian Mcdaniel and colleagues, with an educational raehl from [employer]. Thrive Questionnaire Date Thrive assessed: 05/07/24 I am a: Patient What is your living situation today?: I have a steady place to live Within the past 12 months, did the food you bought not last and you didn't have the money to get more?: Never true Within the past 12 months, did you worry whether your food would run out before you got money to buy more?: Never true Do you have trouble paying for medicines?: No Do you have trouble getting transportation to medical appointments?: No Do you have trouble paying your heating and electricity bill?: No Do you have trouble taking care of your child, family member or friend?: No Do you have trouble with day-to-day activities such as bathing, preparing meals, shopping, managing finances, etc.?: No Are you currently unemployed and looking for a job?: No Are you interested in more education?: No Please select the resources that you would like help with: None Currently or been in a relationship where the following occur: No concerns reported THRIVE Score: 0 AUDIT C Alcohol Use Questionnaire (AUDIT-C) 1. How often do you have a drink containing alcohol?: Monthly or less 2. How many drinks containing alcohol do you have on a typical day when you are drinking?: 1 or 2 3. How often do you have six or more drinks on one occasion?: Never Total Score: 1 KAYLEE-7 AMB Questionnaire KAYLEE-7 Date KAYLEE - 7 assessed: 05/14/24 Feeling nervous, anxious, or on edge: 0 = Not at all Not being able to stop or control worryin = Not at all Worrying too much about different things: 0 = Not at all Trouble relaxin = Not at all Being so restless that it is hard to sit still: 0 = Not at all Becoming easily annoyed or irritable: 0 = Not at all Feeling afraid as if something awful might happen: 0 = Not at all Total KAYLEE-7 score (0-4 normal; 5-9 mild; 10-14 moderate; 15-21 severe): 0 Source: Developed by Drs. Evelio Hernández, Elian Mcdnaiel and colleagues, with an educational rahel from [employer]. KAYLEE-7 Assessment Billing KAYLEE-7 Assessment Tool: KAYLEE-7 Assessment 13582 Review of Systems Const All systems reviewed & are unremarkable except as noted in HPI and below ENT Reports no additional complaints Resp Reports no additional complaints GI Reports no additional complaints Reports no additional complaints Physical exam (Primary Care) Vital Signs: Last Vital Signs Temp 97.6 F 05/14/24 13:02 Pulse 81 05/14/24 13:02 Resp 18 05/14/24 13:02 BP 120/74 05/14/24 13:02 Pulse Ox 95 05/14/24 13:02 Oxygen Delivery Method Room Air 05/14/24 13:02 BMI result Body Mass Index 23.4 Tobacco/Smoking Status: Tobacco use Status Tobacco use date assessed 05/14/24 05/14/24 13:12 Patient Tobacco Use Status Never used Tobacco 05/14/24 13:12 e-Cigarette/Vaping Use Never Used 05/14/24 12:39 PHQ-9: PHQ-9 Score PHQ-9: Total score 1 05/14/24 13:12 Depression Screening Interpretation: Negative Thrive Assessment: Date of Thrive Assessment Date Thrive assessed 05/07/24 05/14/24 12:39 Currently or been in a relationship where the following occur: No concerns reported Const General: no acute distress HENMT Head: Yes normal to inspection Neck Neck: Yes no lymphadenopathy and Yes supple Chest Chest palpation & inspection: localized rib tenderness with anteroposterior compression (Left upper chest) Breast/axilla inspection: normal inspection of the breasts Breast/axilla palpation: normal palpation of the breasts and no axillary lymphadenopathy Resp Effort & Inspection: normal respiratory effort Auscultation: clear to auscultation bilaterally Cardio Rhythm: regular rhythm Heart sounds: S1 normal heart sound present and S2 normal heart sound present GI Inspection: Yes normal to inspection Coding Level of Care Code Est Pt Level 3 (91387) Diagnoses Costochondritis M94.0 HTN (hypertension) I10 Additional Codes KAYLEE-7 Assessment Billing - KAYLEE-7 Assessment Tool: KAYLEE-7 Assessment 38492 ([id number]) PHQ-9 - 04885 - PHQ-9 Billing: Yes ([id number]) Assessment & Plan Assessment & Plan (1) Costochondritis: Code(s): M94.0 - Chondrocostal junction syndrome [Tietze] Category: Medical Plan: Continue naproxen and supportive care (2) HTN (hypertension): Code(s): I10 - Essential (primary) hypertension Category: Medical Plan: Continue current medication Medications: Refilled naproxen 500 mg PO Q12H PRN 20 tabs 0RF pain
[2024-05-14 13:02] VITALS: BP 120/74; PULSE 81; RESP 18; TEMP 36.4; O2SAT 95; BMI 23.4
--- OUTSIDE RECORDS SUMMARY | 2024-05-14 14:05 | XMS_ITS ---
Author Organization [facility] Address [address] [place] [address] Care Team Providers Care Glove Printer Name Role Phone Sherie Sandoval MD Primary Care Provider Unavaila Eulalia Fraga Unavailable [phone] Mariusz Davidson Unavailable [phone] Encounters Encounter Location Date Provider Diagnosis [address] [address] 02/17/2024 Mariusz Davidson Plan Of Treatment Next Appt Details Provider Name:Eulalia navarro, 06/02/2024 09:30:00 AM, [address] [place] [address], [id number], Progress Notes * Ann ROSALES GDOB:1950 (73 yo M)Acc No.[id number]:02/17/2024 Progress Notes Patient:?Ann ROSALES Provider:?Mariusz Davidson DPM :1950???Age:73 Y???Sex:Male Frederick e:02/17/2024 Address:[address] [place] [address] Pcp:Sherie Sandoval MD Subjective: * Chief Complaints: [...] Davidson DPM Date:?2023 Generated for Rogelio pedraza/Elfego/eTransmitting on:?05/14/2024 02:05 PM EST
--- OUTSIDE RECORDS SUMMARY | 2024-05-14 14:05 | XMS_ITS | Patient Health Record ---
Author Organization [facility] Address [address] [place] [address] Care Team Providers Care Food Trades Assistants Name Role Phone Sherie Sandoval MD Primary Care Provider Unavaila Evelio Tobias Unavailable [phone] Peewee Najera Unavailable Unavailable Allergies Allergen (clinical drug ingredient) Drug/Non Drug Allergy documented on EMR Reaction Allergy Type Onset Date Status erythromycin Erythromycin Unknown Drug Allergy A ctive Reason For Referral No Information Medications Medication SIG (Take, Route, Fr equency, Duration) [...] MG 2 Orally qd Active Ezetimibe Active Problems Problem Type SNOMED Code ICD Code Onset Dates Problem Status W/U Status Risk Notes Problem 198160024 Encounter for screening for malignant neoplasm of colon (Z12.11) Active confirmed Problem 098669286 History of adenomatous polyp of colon (Z86.010) Active confirmed Problem 08469728 Change in bowel habits (R19.4) Active confirmed Problem 289837143 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) Active confirmed Problem Diverticular disease of colon (014638850) Diverticulosis of large intestine without perforation or abscess without bleeding (K57.30) Active confirmed Problem 529505641 Gastroesophageal reflux disease without esophagitis (K21.9) Active confirmed Problem 747943950 Screening for co alli cancer (Z12.11) Active confirmed Problem 39322716 Gastric polyps (K31.7) Active confirmed Problem 66996626 Diarrhea, unspecified type (R19.7) Active confirmed Plan Of Treatment Pending Test Test Name Order Date CELIAC PANEL #10 07/09/2022 STOOL WBC 06/14/2022 C DIFFICILE RFLX PCR 06/14/2022 Pathology 08/30/2022 Future Test Test Name Order Date UPPER GI ENDOSCOPY 11/15/2014 COLONOSCOPY 04/09/2017 COLONOSCOPY 07/09/2022 Insurance Providers Payer Name Payer Address Payer Phone Subscriber Number Group Number Insured Name Patient Relationship to Insured Coverage Start Date Coverage End Date [facility] [address] [place] [address] [id number] STEPHANE ROSALES Self - patient is the insured Medical (General) History Medical History History ICD Code HTN Denies [place],DM,CVA,Lung disease,renal dise ase Colonoscopy 02-21-2005- sma ll [...]
--- OUTSIDE RECORDS SUMMARY | 2024-05-14 14:05 | XMS_ITS ---
Author Organization [facility] Address [address] [place] [address] Care Team Providers Care Teacher Adventure Education Name Role Phone Sherie Sandoval MD Primary Care Provider UnavailEulalia Matute Unavailable [phone] Rupinder Beyer Unavailable [phone] Allergies Allergen (clinical drug ingredient) Drug/Non Drug [...] Encounters Encounter Location Date Provider Diagnosis [facility] [address] [place] [address] 04/15/2024 Rupinder Beyer Plan Of Treatment Next Appt Details Provider Name:Eulalia navarro, 06/02/2024 09:30:00 AM, [address] [place], [address], Progress Notes * Ann ROSALES GDOB:1950 (73 yo M)Acc No.[id number]:04/15/2024 Progress Notes Patient:Ann BURKS Provider:?Rupinder Beyer DPM :1950???Age:73 Y???Sex:Male Frederick e:04/15/2024 Address:[address] [place], [place] [id number] Pcp:Sherie Sandoval MD Subjective: * Chief Complaints: [...] ?Children: yes, 1. ?Marital status: . 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 ???Drug/Alcohol:?AUDIT-C (Standard)?Did you have a drink containing [...] DPM Date:?0 04/15/2024 Generated for Rogelio pedraza/Elfego/Olya on:?05/14/2024 02:04 PM EST
--- OUTSIDE RECORDS SUMMARY | 2024-05-14 14:05 | XMS_ITS | Patient Health Record ---
Author [facility] Address [address] [place] [address] Care Team Providers Care Crystal Calibrator Name Role Phone Sherie Sandoval MD Primary Care Provider UnavailEulalia Matute Unavailable [phone] Mariusz Davidson Unavailable [phone] Rupinder Beyer Unavailable [phone] Allergies Allergen (clinical drug ingredient) Drug/Non Drug [...] Provider Name:Eulalia navarro, 06/02/2024 09:30:00 AM, [address] [place], [address], Insurance Providers Payer Name Payer Address Payer Phone Subscriber Number Group Number Insured Name Patient Relationship to Insured Coverage Start Date Coverage End Date [facility] 65 Medicare Preferred [address] [place] [address] [id number] Ann Saab Self - patient is the insured Medical (General) History Medical History History ICD Code covid-19 Osteoporosis Measles Mumps Chicken pox Shingles Surgical History Surgery Date(Month/Year) hysterectomy 2005 Knee tear right 2011
== END 2024-05-14 14:00 | disposition home or self-care (01) ==
PROVIDERS: PCP Internal Medicine; Visit Provider Internal Medicine
DX: M94.0 Chondrocostal junction syndrome [Tietze] (principal); I10 Essential (primary) hypertension

== ENCOUNTER → 2024-05-14 12:24 | Outpatient (BNVA) | payer MEDICARE, SELFPAY | PROVIDERS: PCP Internal Medicine; Visit Provider Internal Medicine | DX: M94.0 Chondrocostal junction syndrome [Tietze] (principal); I10 Essential (primary) hypertension | CPT/HCPCS: 96127; 99212 ==

== ENCOUNTER 2024-07-22 06:04 | Outpatient (REF) | payer MEDICARE, SELFPAY ==
--- OUTSIDE RECORDS SUMMARY | 2024-07-22 06:07 | XMS_ITS | Patient Health Record ---
Author Organization [facility] Address [address] [place] [address] Care Team Providers Care Renewable Energy Consultant Name Role Phone Sherie Sandoval MD Primary Care Provider Unavaila Evelio Tobias Unavailable [phone] Peewee Najera Unavailable Unavailable Allergies Allergen (clinical [...] Problem Status W/U Status Risk Notes Problem 719134927 Encounter for screening for malignant neoplasm of colon (Z12.11) Active confirmed Problem 644753502 History of adenomatous polyp of colon (Z86.010) Active confirmed Problem 19725639 Change in bowel habits (R19.4) Active confirmed Problem 075500658 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) Active confirmed Problem Diverticular disease of colon (404215713) Diverticulosis of large intestine without perforation or abscess without bleeding (K57.30) Active confirmed Problem 194614049 Gastroesophageal reflux disease without esophagitis (K21.9) Active confirmed Problem 871268663 Screening for co alli cancer (Z12.11) Active confirmed Problem 16216159 Gastric polyps (K31.7) Active confirmed Problem 41856049 Diarrhea, unspecified type (R19.7) Active confirmed Plan [...] Insured Coverage Start Date Coverage End Date [facility] [address] [place] [address] [phone] [id number] STEPHANE ROSALES Self - patient is the insured Medical (General) History Medical History History ICD Code HTN Denies [place],DM,CVA,Lung disease,renal dise ase Colonoscopy 02-21-2005- sma ll [...]
--- OUTSIDE RECORDS SUMMARY | 2024-07-22 06:07 | XMS_ITS | Patient Health Record ---
[facility] Organization [facility] Address [address] [place] [address] Care Team Providers Care Line Servicer Name Role Phone Sherie Sandoval MD Primary Care Provider UnavailEulalia Matute Unavailable [phone] Black, Ivone Unavailable [phone] Mariusz Davidson Unavailable [phone] Rupinder Beyer Unavailable [phone] Allergies Allergen (clinical drug ingredient) Drug/Non Drug Allergy documented on EMR Reaction Allergy Type Onset Date Status Latex Latex Rash Allergy Active Reason For Referral No Information Medications Medication SIG (Take, Route, Frequency, Duration) Notes Start Date End Date Status Tolterodine Tartrate ER 4 MG 1 capsule Orally Once a day Active Lisinopril 5 MG 2 tablets Orally Onc e a day Active Fish Oil 1000 MG [address] ee times a day Active Qunol CoQ10/Ubiquinol/Mumtaz Active Magnesium 400 MG as directed Orally Active Vitamin D3 125 MCG (5000 UT) 1 capsule Orally Once a day Active Rosuvastatin Calcium 20 MG 1 tablet Oral ly Once a day Active Omeprazole 20 MG 1 capsule 1/2 to 1 h our before morning meal Orally Once a day Active Social History [...] ast year? No Points 0 Interpretation Negative Problems Problem Type SNOMED Code ICD Code Onset Dates Problem Status W/U Status Risk Notes Problem Hallux valgus (acquired), right foot (M20.11) Active confirmed Chronic- 2nd opinion Problem [id number] Skin ulcer of toe of right foot, limited to breakdown of skin (L97.511) Active confirmed Vital Signs Blood pressure diastolic 80 mm Hg 06/15/2024 Height 4ft 10.5in in 06/15/2024 Blood pressure systolic 122 mm Hg 06/15/2024 Weight 110 lbs 06/15/2024 BMI 22.6 kg/m2 06/15/2024 Procedures Procedure Date Ordered Date Performed Result Body [place] e [address]- Debride <25 sq cm 06/15/2024 N/A Encounters Encounter Location Date Provider Diagnosis [facility] [place] [address] [place] [address] 06/02/2024 Eulalia Moody Pain in right foot M79.671 ; Hallux valgus (acquired), right foot M20.11 ; Ingrown nail L60.0 ; Pain in right toe(s) M79.674 ; Onychomycosis B35.1 ; Pain in left toe(s) M79.675 and 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 [facility] [address] [address] 06/15/2024 Ivone Black Hallux valgus (acquired), right foot M20.11 ; 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 and Skin ulcer of toe of right foot, limited to breakdown of skin L97.511 Assessments Encounter Date Diagnosis (ICD Code) Assessment Notes Treatment Notes Treatment Clinical Notes Section Notes 06/02/2024 Pain in right foot (ICD-10 - M79.671) 06/02/2024 Hallux valgus (acquired), right foot (ICD-10 - M20.11) 06/15/2024 Hallux valgus (acquired), right foot (ICD-10 - M20.11) Chronic- 2nd opinion 06/15/2024 Acquired hallux extensus of right foot (ICD-10 - M20.5X1) 06/15/2024 Skin ulcer of toe of right foot, limited to breakdown of skin (ICD-10 - L97.511) 06/02/2024 Ingrown nail (ICD-10 - L60.0) 06/02/2024 Pain in right toe(s) (ICD-10 - M79.674) 06/02/2024 Onychomycosis (ICD-10 - B35.1) 06/02/2024 Pain in left toe(s) (ICD-10 - M79.675) 06/02/2024 Acquired hallux extensus of right foot (ICD-10 - M20.5X1) Plan Of Treatment Pending Test Test Name Order Date 11874- Debride <25 sq cm 06/15/2024 Insurance Providers Payer Name Payer Address Payer Phone Subscriber Number Group Number Insured Name Patient Relationship to Insured Coverage Start Date Coverage End Date [employer] 65 Medicare Preferred [address] [place] [address] [id number] Ann Saab Self - patient is the insured Medical (General) History Medical History History ICD Code covid-19 Osteoporosis Measles Mumps Chicken pox Shingles Surgical History Surgery Date(Month/Year) hysterectomy 2004 Knee tear right 2011
--- OUTSIDE RECORDS SUMMARY | 2024-07-22 06:07 | XMS_ITS ---
Author Organization [facility] an[place] Address [address] [place] [address] Care Team Providers Care Carrier Washer Name Role Phone Sherie Sandoval MD Primary Care Provider Eulalia Amador Unavailable [phone] Allergies Allergen (clinical drug ingredient) Drug/Non Drug Allergy documented on EMR Reaction Allergy Type Onset Date Status Latex Latex Rash Allergy Active REASON FOR VISIT Ingrown Nail, Foot pain, Painful nail(s) aggravated by shoes causing difficulty standing/walking Medications Medication SIG (Take, Route, Frequency, Duration) Notes Start Date End Date Status Qunol CoQ10/Ubiquinol/Mumtaz Active Magnesium 400 MG as directed Orally Active Fish Oil 1000 MG 1 capsule Orally Thr ee times a day Active Vitamin D3 125 MCG (5000 UT) 1 capsule Orally Once a day Active Rosuvastatin Calcium 20 MG 1 tablet Oral ly Once a day Active Omeprazole 20 MG 1 capsule 1/2 to 1 h our before morning meal Orally Once a day Active Tolterodine Tartrate ER 4 MG 1 capsule Orally Once a day Active Lisinopril 5 MG 2 tablets Orally Onc e a day Active Social History Tobacco Use: [...] foot (M20.11) Active confirmed Chronic- 2nd opinion Vital Signs Height 4ft 10.5inch in 06/02/2024 Weight 110 lbs 06/02/2024 BMI 22.6 kg/m2 06/02/2024 Encounters Encounter Location Date Provider Diagnosis [facility] [place] [address] [place] [address] 06/02/2024 Eulalia Perica Pain in right foot M79.671 ; Hallux valgus (acquired), right foot M20.11 ; Ingrown nail L60.0 ; Pain in right toe(s) M79.674 ; Onychomycosis B35.1 ; Pain in left toe(s) M79.675 and 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 Assessments Encounter Date Diagnosis (ICD Code) Assessment Notes Treatment Notes Treatment Clinical Notes Section Notes 06/02/2024 Pain in right foot (ICD-10 - M79.671) 06/02/2024 Hallux valgus (acquired), right foot (ICD-10 - M20.11) 06/02/2024 Ingrown nail (ICD-10 - L60.0) 06/02/2024 Pain in right toe(s) (ICD-10 - M79.674) 06/02/2024 Onychomycosis (ICD-10 - B35.1) 06/02/2024 Pain in left toe(s) (ICD-10 - M79.675) 06/02/2024 Acquired hallux extensus of right foot (ICD-10 - M20.5X1) Plan Of Treatment Next Appt Details Follow Up: prn, Reason: Procedure Notes * Category Sub-Category Detail Notes Nail Avulsion Procedure A fine sterile e levator was placed between the eponychium, nail fold, and nail plate to separate the structures. A sterile nail splitter, and/or sterile 316 blade, was then used to longitudinally section the nail along its entire length through the eponychium to the area under the nail fold. The offending portion of nail was from the nail bed with a rolling action and then removed with a hemostat. No underlying bone was identified. There was minimal bleeding as hemostasis was achieved through the temporary use of either a digital tourniquet or the aforementioned local with epinephrine. A bacitracin sterile dressing was applied. Local wound aftercare instructions were discussed and dispensed. The patient was informed of both conservative and future surgical procedures to prevent recurrence. Tylenol or Motrin was recommended for pain or discomfort - 10659 Anesthesia 3cc of 1 percent Lid ocaine Plain local anesthesic utilizing aseptic technique Location Medial nail border, T5 Debride Nail 6-10 Nail debridement Due to the cl inical pathology outlined in the exam findings, performance of this nail treatment is medically necessary as its management by an unskilled/untrained nonprofessional would put this patients foot and overall health at risk. Therefore, debridement to affected nail(s), as described in exam ( TA, T1, T2, T3, T4, T5, T6, T7, T8, T9, ), was performed exclusively by the physician of record to reduce/remove overall nail length, girth, thickness, subungual debris, and necrotic tissue, by manual and/or electrical means through the use of a nail nipper and/or dremel-type metal grinder, to a more viable healthy nail plate or bed tissue 6-10 nails in total. Silver nitrate was used for any petechial bleeding as necessary. Definitive antifungal treatment options, both pharmaceutical and surgical, have been reviewed and discussed with the patient. The patient solely prefers the use of intermittent/as needed professional debridement services for their nail condition and understands the need for additional periodic treatments to maintain effectiveness in symptomatic relief - 51258 Progress Notes * CONNIEAnn SUMNER GDOB:1950 (73 yo M)Acc No.[id number]:06/02/2024 Progress Notes Patient:?Ann ROSALES Provider:?Eulalia Moody DPM :1950???Age:73 Y???Sex:Male Frederick e:06/02/2024 Address:[address] [place] [address] Pcp:Sherie Sandoval MD Subjective: * Chief Complaints: * ???Ingrown NailFoot painPain ful nail(s) aggravated by shoes causing difficulty standing/walking * HPI: ???Foot Pain:?Nature:?tenderness.?Location:?Great toe?, RIGHT.?Duration:?several years.?Course:?worse.?Aggravated:?walking, shoes.?Treatments:?rest/alter normal daily activity, change in shoes.?Severity/Quality:?mild.?Painful Nails:?Pt States Last PCP Visit:?Date:?05/10/2024 * ROS:?General/Constitutional:?Nausea?denies.?Vomiting?denies.?Hunger Thirst?denies.?Loss appetite?denies.?Chills?denies.?Fatigue?denies.?Fever?denies.?Night Sweats?denies.?Unexplained weight loss?denies.?Unexplained weight gain?denies.?HEENTM:?Dentures?denies.?Dizziness?denies.?Glasses/contacts?admits.?Retinopathy?de nies.?Blurred/double vision?denies.?TMJ?denies.?Discharge/drainage?denies.?Implants?denies.?Sore throat?denies.?Dental implants?denies.?Hard of hearing ?denies.?Difficulty chewing/swallowing/speaking?denies.?Nose bleeds?denies.?Sore mouth?denies.?Respiratory:?On Oxygen?denies.?Pneumonia/pleurisy?denies.?Bronchitis?denies.?Emphysema?denies.?C oughing?denies.?Cough blood?denies.?Shortness of breath?denies.?Wheezing?denies.?Cardiovascular:?Pacemaker?denies.?MVP?denies.?WPW?denies.?CHF?denies.?Heart attack?denies.?Septal defect?denies.?Rapid beat?denies.?Chest pain ?denies.?Atrial Fib.?denies.?Murmur/Palpitations?denies.?Gastrointestinal:?Hemorrhoids?denies.?Stomach/Abdominal pain?denies.?Dark blood stool?denies.?Irritable bowel ?denies.?Constipation?denies.?Diarrhea?denies.?Hematology:?Swelling?denies.?Clots?denies.?Varicose Veins?admits.?Bruising?denies.?Bleeding problem?denies.?Genitourinary:?Blood urine?denies.?Frequent/Painfu/urination/bladder control?admits.?Kidney stones?denies.?Infection (UTI)?denies.?Nephropathy?denies.?sex trans dis (STD)?denies.?Prostate?denies.?Musculoskeletal:?Hammertoes?denies.?Bunions?denies.?Back Pain?denies.?Muscle Cramps/ Resting?denies.?Muscle cramps / walking?denies.?Generalized aches and pains?admits.?Weakness?denies.?Integ.:?Shanks?denies.?Scars?denies.?Corns/calluses?denies.?Ingrown nails?admits.?Painful nails?denies.?Open Sores?denies.?Rashes?denies.?Neurologic:?Difficulty sleeping?denies.?Brain disorder?denies.?Numbness?admits.?Balance trouble?denies.?Confusion?denies.?Fainting/blackouts?denies.?Tingling?denies.?Tr emors?denies.? * Medical History:? * Surgical History:?hysterecto my 2005Knee tear right 2011 * Hospitalization/Major Diagno stic Procedure:?Denies Past Hospitalization * Family History:?Mother: dece ased, high blood [...] months??No ???Miscellaneous:?Caffeine: yes, frequency:. ?Children: yes, 1. ?Exercise: no. ?Marital status: . 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 ???Drug/Alcohol:?AUDIT-C (Standard)?Did you have a drink containing alcohol in the past year??No ?Points?0 ?Interpretation?Negative * Medications:?TakingFish Oil 1000 MG Capsule 1 capsule Orally Three times a day Qunol CoQ10/Ubiquinol/Mumtaz Magnesium 400 MG Capsule as directed Orally Vitamin D3 125 MCG (5000 UT) Capsule 1 capsule Orally Once a day Rosuvastatin Calcium 20 MG Tablet 1 tablet Orally Once a day Omeprazole 20 MG Capsule Delayed Release 1 capsule 1/2 to 1 hour before morning meal Orally Once a day Tolterodine Tartrate ER 4 MG Capsule Extended Release 24 Hour 1 capsule Orally Once a day Lisinopril 5 MG Tablet 2 tablets Orally Once a day Medication List reviewed and reconciled with the patientTaking Fish Oil 1000 MG Capsule 1 capsule Orally Three times a day Taking Qunol CoQ10/Ubiquinol/Mumtaz Taking Magnesium 400 MG Capsule as directed Orally Taking Vitamin D3 125 MCG (5000 UT) Capsule 1 capsule Orally Once a day Taking Rosuvastatin Calcium 20 MG Tablet 1 tablet Orally Once a day Taking Omeprazole 20 MG Capsule Delayed Release 1 capsule 1/2 to 1 hour before morning meal Orally Once a day Taking Tolterodine Tartrate ER 4 MG Capsule Extended Release 24 Hour 1 capsule Orally Once a day Taking Lisinopril 5 MG Tablet 2 tablets Orally Once a day Medication List reviewed and reconciled with the patient * Allergies:?Latex: Rashyes[Paul jalloh Verified] Objective: * Vitals:?Ht:4ft 10.5inch, Wt: 110, BMI:22.6, Shoe size:5W, Ht-cm: 148.59 cm, Wt- k.9 kg. * Examination: ???General Examination: ?GENERAL APPEARANCE:?Reveals a pleasant, alert, well-nourished, well- developed, well hydrated individual, who demonstrates proper attention to hygiene/body habitus, and is in no acute distress, Pt serves as own?historian for office visit today.?ORIENTED:?person, place, and time.?Neurological: ?SENSORY:?Neurological exam reveals intact sensorium, pain sensation normal, vibration sensation intact, pinprick sensation is normal in the lower extremities, Pt denies, anesthesia, burning, paresthesia, tingling, B/L.?Vascular: ?DP PULSES (B):?3/4, B/L.?PT PULSES (B):?3/4, B/L.?CAPILLARY FILL TIME:?immediate, all digits, B/L.?TROPHIC CONDITION-TEXTURE/ELASTICITY/TURGOR/HAIR GROWTH (B):?normal, B/L.?TEMPERTURE GRADIENT (C):?warm to cool, proximal to distal, B/L.?PIGMENTATION:?normal, B/L.?EDEMA (C):?absent, B/L.?Dermatologic: ?SKIN FINDINGS:?Skin exam reveals normal texture, elasticity, and turgor. There are no masses. The interspaces are clear.?Orthopedic: ?MUSCLE STRENGTH:?5/5 all groups in a symmetrical fashion , B/L.?BUNION:? Medially prominent 1st MPJ,(-) Pain on palpation,inflammation present medially,Lateral tracking 1st MPJ incompletely reducible, RIGHT,(+) Hallux extensus.?FOOTWEAR:?shoe gear properties exacerbate patients foot/toe deformity.?Ingrown Nail: ?INSPECTION:?Reveals nail incurvation, pain on palpation, groove hypertrophy, Medial nail border, T5.?Nails: ?NAILS are:?Elongated, overgrown, dystrophic, lytic, greater than 3mm thick, discolored and friable with crumbly malodorous subungual debris, with pain on palpation, TA, T1, T2, T3, T4, T5, T6, T7, T8, T9.?X-Rays - IMAGING REPORT: ?Views:?Pt Defers X-Rays.? Assessment: * Assessment: 1.?Pain in right foot - M79. 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 Plan: * Treatment: * Procedures:?Debride Nail 6-10:?Nail debridement?Due to the clinical pathology outlined in the exam findings, performance of this nail treatment is medically necessary as its management by an unskilled/untrained nonprofessional would put this patients foot and overall health at risk. Therefore, debridement to affected nail(s), as described in exam ( TA, T1, T2, T3, T4, T5, T6, T7, T8, T9, ), was performed exclusively by the physician of record to reduce/remove overall nail length, girth, thickness, subungual debris, and necrotic tissue, by manual and/or electrical means through the use of a nail nipper and/or dremel-type metal grinder, to a more viable healthy nail plate or bed tissue 6- 10 nails in total. Silver nitrate was used for any petechial bleeding as necessary. Definitive antifungal treatment options, both pharmaceutical and surgical, have been reviewed and discussed with the patient. The patient solely prefers the use of intermittent/as needed professional debridement services for their nail condition and understands the need for additional periodic treatments to maintain effectiveness in symptomatic relief - 68323.?Nail Avulsion:?Location?Medial nail border, T5.?Anesthesia?3cc of 1 percent Lidocaine Plain local anesthesic utilizing aseptic technique.?Procedure?A fine sterile elevator was placed between the eponychium, nail fold, and nail plate to separate the structures. A sterile nail splitter, and/or sterile 316 blade, was then used to longitudinally section the nail along its entire length through the eponychium to the area under the nail fold. The offending portion of nail was from the nail bed with a rolling action and then removed with a hemostat. No underlying bone was identified. There was minimal bleeding as hemostasis was achieved through the temporary use of either a digital tourniquet or the aforementioned local with epinephrine. A bacitracin sterile dressing was applied. Local wound aftercare instructions were discussed and dispensed. The patient was informed of both conservative and future surgical procedures to prevent recurrence. Tylenol or Motrin was recommended for pain or discomfort - 95175.? * Procedure Codes:?33381 Avuls ion Plate, Modifiers: XS , [id number] DEBRIDE NAIL, 6 OR MORE, Modifiers: XS * Preventive Medicine:? ??Counseling:?Discussion:?-04: Office or other outpatient visit for the evaluation and management of a new patient, which required a medically appropriate history and/or examination and MODERATE level of DECISION MAKING for: 1 OR MORE CHRONIC PROBLEM(S) THATS WORSENING, 2 STABLE CHRONIC PROBLEMS, A NEWLY DIAGNOSED PROBLEM WITH UNCERTAIN PROGNOSIS, AN ACUTE COMPLICATED INJURY WITH MULTIPLE TREATMENT OPTIONS, OR AN ACUTE PROBLEM WITH ACCOMPANYING SYSTEMIC SYMPTOMS, THAT POSE(S) A MODERATE RISK OF MORBIDITY. THIS CONDITION MAY ALSO INCLUDE RX DRUG MANAGEMENT, OR A DECISON FOR MINOR SURGERY. The visit on the day of the encounter encompassed interpreting the data and educating the patient as to the nature of their condition, treatment options available according to their individual PMH, meds, allergies, and overall health/living conditions, as well as any potential risks or complications that may occur from a failure to adhere to, and participate in, the recommended course of therapy. The discussion included a complete verbal, and/or written explanation of the examination results, any x-rays taken, the proposed diagnosis, and outline of the treatment plan. A schedule for future care needs was also explained. The patient verbalized an understanding of the instructions at this time and agreed to be an active participant in their treatment. If the patient should think of any questions or concerns after the visit, I have encouraged the patient to call the office.?Abscess/Paraonychia/Ingrown Nails:?We discussed the possible etiologies (genetic, improper nail care, shoe gear, nail trauma) which may lead to ingrown nails and/or paronychial infections. We discussed and reviewed palliative/nonsurgical/deferring definitive treatment (vs) undergoing the treatment procedures of nail avulsion(s) or PNA, which may prevent recurrence and give more lasting results. The possible risks/complications such as worsened condition/delayed healing/nonhealing/failure/recurrence/infection, the potential benefits/advantages of decreased pain/deformity, as well as alterative treatment options including applying nail softening agents/nail groove packing were discussed. No guarantees were given regarding any outcome for any procedure. The patient was educated in the length of time for the affected nail to regrow once completely healed from a nail avulsion procedure. Once the condition has completely healed, the patient was consulted on proper nail care. Patient questions such as details of each procedure, varying time to heal, activity post procedure, and shoe gear were discussed and the answers were verbally confirmed fully understood.?Digital Treatment:?HV - I explained to the patient the risks/benefits of all the different treatment options for their pain including: No treatment at all, Rest, Ice, New/supportive/wider/deeper Shoe gear, Digital Padding/Strapping/Taping/Bracing/Gel protective sleeves, Foot/Ankle AFO Bracing, Stretching exercises, Deep Tissue Massage, Arch support/shoe inserts with splay metatarsal padding, and Custom orthoses. I insisted that any digital devices be removed daily and not worn overnight for safety. The patient is to carefully examine the toes daily for any skin irritation while using any splinting or padding device. The advantages and disadvantages of each option were discussed and the patients questions re: shoe gear, padding, custom vs prefabricated inserts, activity level, and consistency in home treatment regimens for optimal success were answered to their verbally confirmed satisfaction.?Discussion for Bunion sx:?Several different types of Bunion surgeries were discussed with the patient, including, joint fusion procedures with internal fixation due to hallux extensus. We discussed the risks of having surgery (described below) vs not having surgery (persistent pain, deformity, risk for skin ulceration/infection, loss of toe) as well as the potential surgical complications including, but not limited to: pain, swelling, bleeding, scarring, numbness, infection, delayed/non healing, floppy/unstable/shorthened toe, recurrence, failure of the procedure, overcorrection leading to plantarflexed/downward/upward positioned toe, recurrence, need for further surgery, as well as the possibility for loss of the toe itself. We discussed the use of IV/Local regional anesthesia, and the usual post-op course for healing. No guarentees were given. The patient verbally indicated a full understanding of the above conversation, and any other of their questions were answered to their satisfaction. , Pt defers on any surgical intervention at this time and would like to try conservative treatment, -We elected to try conservative treatment at the present time, as pt has no pain or discomfort with their bunion(s), we discussed conservative care to help prevent the progression of the bunion deformity , Recomm, rest, ice, proper shoegear, padding, orthotics.?Orthotics:?I explained to the patient the benefits of OT use. I explained that orthoses are medically necessary to decrease the foot pain through proper mechanical control, support of their foot, cushion the forefoot by supplementing the soft tissue, possibly delay of the progression of the bunion deformity, possibly prevent surgery, Rx OT given and recommended [facility]P.R.I.C.E.:?The patient was counseled on the use of P.R.I.C.E. and NSAIDS (if well tolerated) to aid in the recovery from their painful condition , Recommended Topical analgesics including Biofreeze/Aspercream/Voltaren gel.?Shoe Gear Counseling:?The patient and I reviewed the types of shoes they should be wearing. My recommendation included obtaining a well-fitted shoe with a good supportive, non-foldable nor twistable sole, plenty of toe/room for the forefoot, and proper arch support. Based on todays examination, I recommended the patient look for new shoes, by having their feet professionally measured. We discussed that generally the best time of the day for a shoe fitting is the afternoon. Different shoes types and brands to best match the patients occupation and vocation were discussed. Specific brand selection will be up to the patient, their individual foot condition/deformities, and fit. The patient and I reviewed the standard new shoe break in period by wearing them for a few hours a day while checking for redness or sores as wear time is increased. The patient verbally confirmed to understanding the information discussed.? ??Screening/Special Tests:?Fall Risk?Screening:?No falls in the past year ?FALLS: Screening for Future Fall Risk?Have you had any falls with injury in the past year??No * Follow Up:?prn * Images: * Sign off status: Completed true * Provider:?Eulalia Moody DPM Date:? Generated for Rogelio pedraza/Elfego/Olya on:?07/22/2024 06:07 AM EDT History and Physical Notes * HPI (History of Present Illness) Category Sub-Category Detail Notes Category Not es Painful Nails Pt States Last PCP Visit: Date:: 05/10/2024 Foot Pain Nature: tenderness Location: Great toe , RIGHT Duration: several years Course: worse Aggravated: walking, shoes Treatments: rest/alter normal da juany activity, change in shoes Severity/Quality: mild Examination Category Sub-Category Detail Notes Category Not es Ingrown Nail INSPECTION: Reveals nail inc urvation, pain on palpation, groove hypertrophy, Medial nail border, T5 Neurological SENSORY: Neurological exa m reveals intact sensorium, pain sensation normal, vibration sensation intact, pinprick sensation is normal in the lower extremities, Pt denies, anesthesia, burning, paresthesia, tingling, B/L Dermatologic SKIN FINDINGS: Skin exam reveal s normal texture, elasticity, and turgor. There are no masses. The interspaces are clear Orthopedic BUNION: Medially promine nt 1st MPJ, (-) Pain on palpation, inflammation present medially, Lateral tracking 1st MPJ incompletely reducible, RIGHT,(+) Hallux extensus FOOTWEAR EVALUATION: shoe gear propertie s exacerbate patients foot/toe deformity MUSCLE STRENGTH: 5/5 all groups in a symmetrical fashion , B/L General Examination GENERAL APPEARANCE: Reveals a pleasant, alert, well- nourished, well-developed, well hydrated individual, who demonstrates proper attention to hygiene/body habitus, and is in no acute distress, Pt serves as own historian for office visit today ORIENTED: person, place, and t dominique Vascular DP PULSES (B): 3/4, B/L PT PULSES (B): 3/4, B/L CAPILLARY FILL TIME: immediate, all digi ts, B/L TEMPERTURE GRADIENT (C): warm to cool, p roximal to distal, B/L TROPHIC CONDITION-TEXTURE/ELASTICITY/TURGOR/HAIR GROWTH (B): normal, B/L EDEMA (C): absent, B/L PIGMENTATION: normal, B/L Nails NAILS are: Elongated, overg rown, dystrophic, lytic, greater than 3mm thick, discolored and friable with crumbly malodorous subungual debris, with pain on palpation, TA, T1, T2, T3, T4, T5, T6, T7, T8, T9 X-Rays - IMAGING REPORT Views: Pt Defers X-Rays
--- OUTSIDE RECORDS SUMMARY | 2024-07-22 06:07 | XMS_ITS ---
Author Organization [facility] [place] Address [address] [place] [address] Care Team Providers Care Business English Instructor Name Role Phone Sherie Sandoval MD Primary Care Provider Unavaila Eulalia Fraga Unavailable [phone] Rupinder Beyer Unavailable [phone] Allergies Allergen (clinical drug ingredient) Drug/Non Drug [...] Negative Encounters En[facility] Date [facility] [address] [place] [address] [facility] Rupinder Beyer Plan Of Treatment No Information Progress Notes * Ann ROSALES GDOB:1950 (74 yo M)Acc No.[id number]:04/15/2024 Progress Notes Patient:Ann BURKS Provider:?Rupinder Beyer DPM :1950???Age:73 Y???Sex:Male Frederick e:04/15/2024 Address:[address] [place], [place] [id number] Pcp:Sherie Sandoval MD Subjective: * Chief Complaints: [...] ?Children: yes, 1. ?Marital status: . 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 ???Drug/Alcohol:?AUDIT-C (Standard)?Did you have a drink containing [...] DPM Date:?0 04/15/2024 Generated for Rogelio pedraza/Elfego/Olya on:?07/22/2024 06:06 AM EDT
[2024-07-22 10:39] LABS: MANUAL DIFF FLAG NO
[2024-07-22 10:41] LABS: Basophils Percent Auto 0.5 % (0-2); Eosinophils Absolute Auto 0.2 X10*3/uL (0.0-0.4); Eosinophils Percent Auto 2.7 % (0-4); Hematocrit 41.9 % (37.0-47.0); Hemoglobin 14.5 g/dl (12.0-16.0); Imm Gran Abs Auto 0.02 X10*3/uL (0.00-0.03); Imm Gran Pct Auto 0.3 % (0.0-0.4); Lymphocytes Absolute Auto 1.3 X10*3/uL (1.2-4.9); Lymphocytes Percent Auto 21.6 % (20-40); Mean Corpuscular HGB Conc 34.6 g/dl (31.0-35.0); Mean Corpuscular Hemoglobin 33.4 pg (27.0-33.0); Mean Corpuscular Volume 96.5 fL (80.0-98.0); Mean Platelet Volume 10.6 fL (9.4-12.3); Monocytes Absolute Auto 0.5 X10*3/uL (0.1-1.2); Monocytes Percent Auto 8.4 % (2-11); Neutrophils Absolute Auto 3.9 x10*3/uL (2.0-8.3); Neutrophils Percent Auto 66.5 % (45-73); Platelet Count 192 X10*3/uL (160-400); Red Blood Count 4.34 X10*6/uL (4.20-5.50); Red Cell Distribution Width 12.3 % (11.0-16.0); White Blood Count 5.8 X10*3/uL (4.8-10.8)
[2024-07-22 11:00] LABS: Alanine Aminotransferase 19 U/L (0-31); Albumin Level 4.2 g/dL (3.5-5.0); Alkaline Phosphatase 70 U/L (39-117); Anion Gap 9 (12-20); Aspartate Amino Transferase 29 U/L (5-31); Bilirubin Total 0.6 mg/dL (0.0-1.0); Blood Urea Nitrogen 14 mg/dL (9-16); Calcium 9.7 mg/dL (8.4-10.2); Carbon Dioxide 31 mmol/L (22-29); Chloride 106 mmol/L (96-108); Cholesterol 165 mg/dL (<200); Estimated Glomerular Filt Rate > 60; Glucose Fasting 110 mg/dL (60-99); HDL Cholesterol 46 mg/dL (>40); LDL Cholesterol Calculated 96 mg/dL (<100); Potassium 4.3 mmol/L (3.3-5.1); Sodium 142 mmol/L (135-145); Total Protein 6.8 g/dL (6.5-8.0); Triglycerides 118 mg/dL (<150)
[2024-07-22 11:19] LABS: TSH reflex Free T4 1.07 uIU/mL (0.32-4.0)
== END 2024-07-22 06:05 | disposition home or self-care (01) ==
LOC: HO.HMGCLDS 06:04
PROVIDERS: PCP Internal Medicine; Visit Provider Internal Medicine
DX: Z00.00 Encounter for general adult medical examination without abnormal findings (principal); R73.9 Hyperglycemia, unspecified; I10 Essential (primary) hypertension; E78.5 Hyperlipidemia, unspecified
CPT/HCPCS: 36415; 80053; 80061; 84443; 85025

== ENCOUNTER 2024-07-26 13:35 | Outpatient (AMB) | payer MEDICARE, SELFPAY ==
--- OUTSIDE RECORDS SUMMARY | 2024-07-26 13:38 | XMS_ITS ---
Author Organization [facility] Address [address] [facility] [place] [address] Care Team Providers Care Hydrodynamics Professor Name Role Phone Sherie Sandoval MD Primary Care Provider Eulalia Amador Unavailable [phone] Allergies Allergen (clinical drug ingredient) Drug/Non Drug [...] Problem Status W/U Status Risk Notes Problem Acquired hallux valgus (63816911) Hallux valgus (acquired), right foot (M20.11) Active confirmed Chronic- 2nd opinion Vital Signs Height 4ft 10.5inch in 06/02/2024 Weight 110 lbs 06/02/2024 BMI 22.6 kg/m2 06/02/2024 Encounters Encounter Location Date Provider Diagnosis [facility] [place] [address] [place] [address] 06/02/2024 Eulalia Perica Pain in right foot [...] was recommended for pain or discomfort - 40911 Anesthesia 3cc of 1 percent Lid ocaine [...] use of a nail nipper and/or dremel-type sample grinder, to a more viable healthy nail [...] to maintain effectiveness in symptomatic relief - 02867 Progress Notes * Ann ROSALES GDOB:1950 (73 yo M)Acc No.[id number]:06/02/2024 Progress Notes Patient:?Ann ROSALES Provider:?Eulalia Moody DPM :1950???Age:73 Y???Sex:Male Frederick e:06/02/2024 Address:[address] [place] [address], [place] Pcp:Sherie Sandoval MD Subjective: * Chief Complaints: [...] 1. ?Exercise: no. ?Marital status: . 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 ???Drug/Alcohol:?AUDIT-C (Standard)?Did you have a drink containing [...] use of a nail nipper and/or dremel-type sample grinder, to a more viable healthy nail [...] to maintain effectiveness in symptomatic relief - 00753.?Nail Avulsion:?Location?Medial nail border, T5.?Anesthesia?3cc of 1 percent [...] was recommended for pain or discomfort - 38911.? * Procedure Codes:?70850 Avuls ion Plate, Modifiers: XS , X399255 DEBRIDE NAIL, 6 OR MORE, Modifiers: XS [...] Moody DPM Date:? Generated for Rogelio pedraza/Elfego/Olya on:?07/26/2024 01:38 PM EDT History and Physical Notes * HPI [...]
--- OUTSIDE RECORDS SUMMARY | 2024-07-26 13:38 | XMS_ITS | Patient Health Record ---
Author Organization [facility] [place] [facility] Address [address] [facility] [place] [address] Care Team Providers Care Deputy Clerk Of [address] Name Role Phone Sherie Sandoval MD Primary Care Provider UnavailEulalia Matute Unavailable [phone] Gadiel, Ivone Unavailable [phone] Mariusz Davidson Unavailable [phone] Rupinder Beyer Unavailable [phone] Allergies Allergen (clinical drug ingredient) Drug/Non Drug [...] Status Risk Notes Problem Acquired hallux valgus (94139788) Hallux valgus (acquired), right foot (M20.11) Active confirmed Chronic- 2nd opinion Problem 46217577745115001 Skin ulcer of toe of right foot, limited to breakdown of skin (L97.511) Active confirmed Vital Signs Blood pressure diastolic 80 mm Hg 06/15/2024 Height 4ft 10.5in in 06/15/2024 Blood pressure systolic 122 mm Hg 06/15/2024 Weight 110 lbs 06/15/2024 BMI 22.6 kg/m2 06/15/2024 Procedures Procedure Date Ordered Date Performed Result Body Sit e 78449- Debride <25 sq cm 06/15/2024 N/A Encounters Encounter Location Date Provider Diagnosis [facility] [address] [place] [address] 06/02/2024 Eulalia Perica Pain in right foot M79.671 ; Hallux valgus (acquired), right foot M20.11 ; Ingrown nail L60.0 ; Pain in right toe(s) M79.674 ; Onychomycosis B35.1 ; Pain in left toe(s) M79.675 and 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 [facility] [address] [address] 06/15/2024 Ivone Black Hallux valgus (acquired), right [...] Treatment Pending Test Test Name Order Date 87001- Debride <25 sq cm 06/15/2024 Insurance Providers Payer Name Payer Address Payer Phone Subscriber Number Group Number Insured Name Patient Relationship to Insured Coverage Start Date Coverage End Date [employer] 65 Medicare Preferred [address] [place] [address] [phone] [id number] Ann Saab Self - patient is the insured Medical (General) History Medical History History ICD Code covid-19 Osteoporosis Measles Mumps Chicken pox Shingles Surgical History Surgery Date(Month/Year) hysterectomy 2005 Knee tear right 2011
--- OUTSIDE RECORDS SUMMARY | 2024-07-26 13:38 | XMS_ITS ---
Author Organization [facility] [place] Address [address] [facility] [address] Care Team Providers Care Glass Belt Sander Name Role Phone Sherie Sandoval MD Primary Care Provider Unavaila Eulalia Fraga Unavailable [phone] Black, Ivone Unavailable [phone] Allergies Allergen (clinical drug ingredient) Drug/Non Drug Allergy documented on EMR Reaction Allergy Type Onset Date Status Latex Latex Rash Allergy Active REASON FOR VISIT Foot pain, Open sore Medications Medication SIG (Take, Route, Frequency, Duration) Notes Start Date End Date Status Tolterodine Tartrate ER 4 MG 1 capsule Orally Once a day Active Lisinopril 5 MG 2 tablets Orally Onc e a day Active Vitamin D3 125 MCG (5000 UT) 1 capsule Orally Once a day Active Rosuvastatin Calcium 20 MG 1 tablet Oral ly Once a day Active Omeprazole 20 MG 1 capsule 1/2 to 1 h our before morning meal Orally Once a day Active Fish Oil 1000 MG [address] ee times a day Active Qunol CoQ10/Ubiquinol/Mutmaz Active Magnesium 400 MG as directed Orally Active Social History Tobacco Use: Social History [...] Problem Status W/U Status Risk Notes Problem 79004977589840102 Skin ulcer of toe of right foot, limited to breakdown of skin (L97.511) Active confirmed Vital Signs Height 4ft 10.5in in 06/15/2024 Weight 110 lbs 06/15/2024 BMI 22.6 kg/m2 06/15/2024 Blood pressure systolic 122 mm Hg 06/16/19 25 Blood pressure diastolic 80 mm Hg 025 Procedures Procedure Date Ordered Date Performed Result Body Sit e 39212- Debride <25 sq cm 06/15/2024 N/A Encounters Encounter Location Date Provider Diagnosis [facility] [address] 06/15/2024 Ivone Black Hallux valgus (acquired), right foot M20.11 ; 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 and Skin ulcer of toe of right foot, limited to breakdown of skin L97.511 Assessments Encounter Date Diagnosis (ICD Code) Assessment Notes Treatment Notes Treatment Clinical Notes Section Notes 06/15/2024 Hallux valgus (acquired), right foot (ICD-10 - M20.11) Chronic- 2nd opinion 06/15/2024 Acquired hallux extensus of right foot (ICD-10 - M20.5X1) 06/15/2024 Skin ulcer of toe of right foot, limited to breakdown of skin (ICD-10 - L97.511) Plan Of Treatment Pending Test Test Name Order Date 21112- Debride <25 sq cm 06/15/2024 Next Appt Details Follow Up: 2 Weeks, Reason: Procedure Notes * Category Sub-Category Detail Notes Debride skin< 25 sq cm Open wound Physician of record performed open wound selective debridement of first 25 sq cm or less, of devitilized necrotic/nonviable soft tissue, fibrin, and exudate extending from the epidermis through the dermis, utilizing sharp dissection with sterile 15 blade, and/or tissue nippers. Hemostasis was controlled through direct pressure. Sterile antibiotic dressing applied, ANESTHESIA was not required due to presence of NEUROPATHY. Post debridement measurements: 8 mm x 4 mm x2 mm. Character of the wound post debridement is stable (81733) Progress Notes * Ann ROSALES GDOB:1950 (73 yo M)Acc No.[id number]:06/15/2024 Progress Notes Patient:?Ann ROSALES Provider:?Ivone Ramesh DPM :1950???Age:73 Y???Sex:Male Frederick e:06/15/2024 Address:[place] Pcp:Sherie Sandoval MD Subjective: * Chief Complaints: * ???Foot painOpen sore * HPI: ???Foot Pain:?Nature:?tenderness.?Location:?Great toe?, RIGHT.?Duration:?several years.?Course:?worse.?Aggravated:?walking, shoes.?Treatments:?rest/alter normal daily activity, change in shoes.?Severity/Quality:?mild.?Skin problems:?Nature:?Open sore.? * ROS:?General/Constitutional:?Nausea?denies.?Vomiting?denies.?Hunger Thirst?denies.?Loss appetite?denies.?Chills?denies.?Fatigue?denies.?Fever?denies.?Night Sweats?denies.?Unexplained weight loss?denies.?Unexplained [...] 1. ?Exercise: no. ?Marital status: . 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 ???Drug/Alcohol:?AUDIT-C (Standard)?Did you have a drink containing [...] * Allergies:?Latex: Rashyes[Paul jalloh Verified] Objective: * Vitals:?Ht: 4ft 10.5in, Wt:1 10, BMI:22.6, Shoe size: 5W, BP:122/80mm Hg, Ht-cm: 148.59 cm, Wt-k.9 kg. * Examination: ???General Examination: ?GENERAL APPEARANCE:?Reveals a pleasant, alert, well nourished, well- developed, well hydrated individual, who demonstrates proper attention to hygiene/body habitus, and is in no acute distress, Pt serves as own historian for office visit today.?Neurological: ?SENSORY:?Neurological exam reveals intact sensorium, pain sensation normal, vibration sensation intact, pinprick sensation is normal in the lower extremities, Pt denies, anesthesia, burning, paresthesia, tingling, B/L.?Vascular: ?DP PULSES (B):?3/4, B/L.?PT PULSES (B):?3/4, B/L.?CAPILLARY FILL TIME:?immediate, all digits, B/L.?TROPHIC CONDITION-TEXTURE/ELASTICITY/TURGOR/HAIR GROWTH (B):?normal, B/L.?TEMPERTURE GRADIENT (C):?warm to cool, proximal to distal, B/L.?PIGMENTATION:?normal, B/L.?EDEMA (C):?absent, B/L.?Orthopedic: ?MUSCLE STRENGTH:?5/5 all groups in a symmetrical fashion , B/L.?BUNION:? Medially prominent 1st MPJ,(-) Pain on palpation,inflammation present medially,Lateral tracking 1st MPJ incompletely reducible, RIGHT,(+) Hallux extensus.?FOOTWEAR EVALUATION:?shoe gear properties exacerbate patients foot/toe deformity.?Dermatologic: ?ULCER:?Medial, T5, LOCATION, SIZE, 8mm X 3mm X 2mm, BASE, granular, RIM, hyperkeratotic, UNDERMINING, absent, TRACKING, Full thickness breakdown of skin, DRAINAGE, serosanguineous, mild, NECROTIC TISSUE, loosely-adherent, yellow slough, MALODOR, absent, CALOR, absent, ERYTHEMA, absent, PAIN ON PALPATION, present.? Assessment: * Assessment: 1.?Hallux valgus (acquired), right foot - M20.11 (Primary)???Notes :Chronic- 2nd opinion???2.?Acquired hallux extensus of right foot - M20.5X1???3.?Skin ulcer of toe of right foot, limited to breakdown of skin - L97.511??? Plan: * Treatment: * Procedures:?Debride skin< 25 sq cm:?Open wound?Physician of record performed open wound selective debridement of first 25 sq cm or less, of devitilized necrotic/nonviable soft tissue, fibrin, and exudate extending from the epidermis through the dermis, utilizing sharp dissection with sterile 15 blade, and/or tissue nippers. Hemostasis was controlled through direct pressure. Sterile antibiotic dressing applied, ANESTHESIA was not required due to presence of NEUROPATHY. Post debridement measurements: 8 mm x 4 mm x2? mm. Character of the wound post debridement is stable (79987).? * Procedure Codes:?89979 ACTIV E WOUND CARE/20 CM OR <, Modifiers: XS * Preventive Medicine:? ??Counseling:?Discussion:?-13: Office or other outpatient visit for the evaluation and management of an established patient, which required a medically appropriate history and/or examination and LOW level of DECISION-MAKING for: 1 STABLE ACUTE UNCOMPLICATED PROBLEM, 2 OR MORE MINOR PROBLEMS, OR 1 STABLE CHRONIC PROBLEM, THAT POSE(S) A LOW RISK FOR MORBIDITY/MORTALITY. The visit on the day of the [...] have encouraged the patient to call the office Pt asked for a second opinion regarding surgery of the right foot. Discussed with pt that if she is not having any pain I do not recomm. Moving forward with any surgery.I recomm. A more conservative approach - New Balance 840 Recomm. Pt be fitted for the proper size and width.?Ulcer:?A detailed plan of care was reviewed with the patient. We emphasized the fact that the patient takes on an active participating role in the treatment process and emphasized to them that they are an included, valued, and important member of the wound healing team in order to reach an expedient successful outcome. The patient agreed to follow their medically recommended diet while increasing their protein intake if safely able to do so, maintain proper bodily hydration, abide by weight-bearing restrictions at all times, quit all current smoking habits if any, and diligently follow any/all dressing change instructions. It was clearly made known to the patient that if they fail to do their part, they will likely extend their course of treatment as well as possibly increase their risk of adverse events including amputation. The patient was instructed on importance of proper wound care consisting of pressure reduction, and proper maintenance of a moist wound environment. The patient is to cleanse the wound with warm soapy water/peroxide/saline, or betadine BID based on product availability. The patient is to apply ( NEOSPORIN, POLYSPORIN, or TRIPLE OINTMENT, ____) Antibiotic to the wound and cover with a DSD as directed. The patient was instructed to change dressings according to orders, or PRN saturation, leaks. The patient was instructed to monitor and report any signs or symptoms of infection or any untoward reactions. Precautions Taken: Offloading/Pressure reduction via rest/ limited activity to essential to daily life only, cane/ crutches/ walker/ knee scooter/ wheelchair, shoe modification, accommodative padding, sharp debridement, and take/apply medication as directed. THE SHORT-TERM GOALS of wound care include, prevent hospitalization, debridement to remove devitalized tissue, minimize risk for soft tissue or bone infection, initiate and promote the wound healing process, and prevent further complication such as loss of limb or life were discussed/reviewed. THE LONG-TERM GOALS of wound care include, complete wound closure if possible, facilitate patient comfort, prevent recurrence, and return the patient to their pre-ulcerative state of activity and lifestyle if possible, Debridement frequency as indicated.? * Follow Up:?2 Weeks * Images: * Sign off status: Completed true * Provider:?Ivone Ramesh DPM Date:?2024 Generated for Rogelio pedraza/Elfego/Olya on:?07/26/2024 01:37 PM EDT History and Physical Notes * HPI (History of Present Illness) Category Sub-Category Detail Notes Category Not es Skin problems Nature: Open sore Foot Pain Nature: tenderness Location: Great toe , RIGHT Duration: several years Course: worse Aggravated: walking, shoes Treatments: rest/alter normal da juany activity, change in shoes Severity/Quality: mild Examination Category Sub-Category Detail Notes Category Not es Neurological SENSORY: Neurological exa m reveals intact sensorium, pain sensation normal, vibration sensation intact, pinprick sensation is normal in the lower extremities, Pt denies, anesthesia, burning, paresthesia, tingling, B/L Dermatologic ULCER: Medial, T5, LOCA TION, SIZE, 8mm X 3mm X 2mm, BASE, granular, RIM, hyperkeratotic, UNDERMINING, absent, TRACKING, Full thickness breakdown of skin, DRAINAGE, serosanguineous, mild, NECROTIC TISSUE, loosely-adherent, yellow slough, MALODOR, absent, CALOR, absent, ERYTHEMA, absent, PAIN ON PALPATION, present Orthopedic BUNION: Medially promine nt 1st MPJ, (-) Pain on palpation, inflammation present medially, Lateral tracking 1st MPJ incompletely reducible, RIGHT,(+) Hallux extensus FOOTWEAR EVALUATION: shoe gear propertie s exacerbate patients foot/toe deformity MUSCLE STRENGTH: 5/5 all groups in a symmetrical fashion , B/L General Examination GENERAL APPEARANCE: Reveals a pleasant, alert, well nourished, well-developed, well hydrated individual, who demonstrates proper attention to hygiene/body habitus, and is in no acute distress, Pt serves as own historian for office visit today Vascular DP PULSES (B): 3/4, B/L PT PULSES (B): 3/4, B/L CAPILLARY FILL TIME: immediate, all digi ts, B/L TEMPERTURE GRADIENT (C): warm to cool, p roximal to distal, B/L TROPHIC CONDITION-TEXTURE/ELASTICITY/TURGOR/HAIR GROWTH (B): normal, B/L EDEMA (C): absent, B/L PIGMENTATION: normal, B/L
--- OUTSIDE RECORDS SUMMARY | 2024-07-26 13:38 | XMS_ITS | Patient Health Record ---
Author Organization [facility] Address [address] [place] [address] Care Team Providers Care Aquaculture Director Name Role Phone Sherie Sandoval MD Primary Care Provider Unavaila Evelio Tobias Unavailable [phone] Peewee Najera Unavailable Unavailable Allergies Allergen (clinical [...] Problem Status W/U Status Risk Notes Problem [id number] Encounter for screening for malignant neoplasm of colon (Z12.11) Active confirmed Problem 806698219 History of adenomatous polyp of colon (Z86.010) Active confirmed Problem 86230254 Change in bowel habits (R19.4) Active confirmed Problem 225291816 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) Active confirmed Problem Diverticulosis o f large intestine without perforation or abscess without bleeding (K57.30) Active confirmed Problem 359989512 Gastroesophageal reflux disease without esophagitis (K21.9) Active confirmed Problem 587528452 Screening for co alli cancer (Z12.11) Active confirmed Problem 54623751 Gastric polyps (K31.7) Active confirmed Problem 26771843 Diarrhea, unspecified type (R19.7) Active confirmed Plan [...] Insured Coverage Start Date Coverage End Date [facility] [address] [place] [address] [id number] STEPHANE ROSALES Self - patient is the insured Medical (General) History Medical History History ICD Code HTN Denies CA,DM,CVA,Lung disease,renal dise ase Colonoscopy 02-21-2005- sma ll [...]
--- OUTSIDE RECORDS SUMMARY | 2024-07-26 13:38 | XMS_ITS ---
Author Organization [facility] [place] Address [address] [place] [address] Care Team Providers Care Tongue And Quarter Stitcher Name Role Phone Sherie Sandoval MD Primary Care Provider Unavaila Eulalia Fraga Unavailable [phone] Rupinder Beyer Unavailable [phone] Allergies Allergen (clinical drug ingredient) Drug/Non Drug [...] Negative Encounters Encounter [facility] Date [facility] [address] [place] [address] 04/15/[facility]24 Rupinder Beyer Plan Of Treatment No Information Progress Notes * Ann ROSALES GDOB:1950 (74 yo M)Acc No.[id number]:04/15/2024 Progress Notes Patient:Ann BURKS Provider:?Rupinder Beyer DPM :1950???Age:73 Y???Sex:Male Frederick e:04/15/2024 Address:[address] [place], [place] [id number] Pcp:Sherie Sandoval MD Subjective: * Chief Complaints: [...] ?Children: yes, 1. ?Marital status: . 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 ???Drug/Alcohol:?AUDIT-C (Standard)?Did you have a drink containing [...] DPM Date:?0 04/15/2024 Generated for Rogelio pedraza/Elfego/Olya on:?07/26/2024 01:38 PM EDT
[2024-07-26 13:54] VITALS: BP 112/78; PULSE 96; RESP 18; TEMP 36.5; O2SAT 97; BMI 22.2
--- NOTE | 2024-07-26 13:54 | MHC.PC.OV ---
Vital Signs 07/26/24 13:54 Height 4 ft 11 in Weight 110 lb BMI 22.2 BP 112/78 Blood Pressure Location Rt brachial Position Sitting Respiration 18 Pulse 96 Pulse Source Pulse Oximeter Temp 97.7 F Temp Source Oral Pulse Oximetry (%) 97 Oxygen Delivery Method Room Air Intake Visit Reasons: 6 months f/up Intake Note: Pt is here today for 6 months follow up visit. Allergies carrot [CARROT] Allergy (Unknown, Verified 07/26/24 13:59) CAME BACK + IN TESTING - ABLE TO EAT THEM egg [EGG] Allergy (Unknown, Verified 07/26/24 13:59) DIARRHEA petrolatum,white [From Petroleum Jelly] Allergy (Unknown, Verified 07/26/24 13:59) SKIN FELT LIKE IT WAS ON FIRE erythromycin base Allergy (Verified 07/26/24 13:59) Unknown latex Allergy (Verified 07/26/24 13:59) rash Ykobzik-FFC-JgR Reductase Inhibitor Adverse Reaction (Intermediate, Verified 07/26/24 13:59) leg pain ENVIRONMENTAL Allergy (Unknown, Uncoded 07/26/24 13:59) ITCHY EYES percocet Allergy (Unknown, Uncoded 07/26/24 13:59) Itching Medication List - Last Reconciled 07/26/24 by Sherie Sandoval MD cholecalciferol (vitamin D3) 25 mcg PO DAILY lisinopril 5 mg PO DAILY naproxen 500 mg PO Q12H PRN omega-3 fatty acids (Fish Oil Concentrate) 1,000 mg PO DAILY omeprazole 20 mg PO BID red yeast rice PO rosuvastatin 10 mg PO DAILY tolterodine ER 4 mg PO DAILY Tobacco use date assessed: 07/26/24 Fall risk assessment: No Falls in past year Last assessed Fall Risk: 07/26/24 Dental Screening Dental Screen Date: 05/14/24 HPI 6 months f/up HPI Details Pt presents for hyperlipid and HTN, stable on meds, PFSH Medical History Osteoporosis Vitamin D deficiency Postmenopausal Normal breast exam Dysplastic nevus GERD (gastroesophageal reflux disease) HTN (hypertension) Hyperlipidemia Annual physical exam Surgical History H/O colonoscopy Family History Father Heart problem Mother Hypertension Dementia Social History Housing: House Alcohol intake: never Patient Tobacco Use Status: Never used Tobacco e-Cigarette/Vaping Use: Never Used service: No Current occupational status: employed Cognitive needs: No Hearing needs: No Vision needs: Yes Questionnaire Thrive Questionnaire Date Thrive assessed: 05/07/24 I am a: Patient What is your living situation today?: I have a steady place to live Within the past 12 months, did the food you bought not last and you didn't have the money to get more?: Never true Within the past 12 months, did you worry whether your food would run out before you got money to buy more?: Never true Do you have trouble paying for medicines?: No Do you have trouble getting transportation to medical appointments?: No Do you have trouble paying your heating and electricity bill?: No Do you have trouble taking care of your child, family member or friend?: No Do you have trouble with day-to-day activities such as bathing, preparing meals, shopping, managing finances, etc.?: No Are you currently unemployed and looking for a job?: No Are you interested in more education?: No Please select the resources that you would like help with: None Currently or been in a relationship where the following occur: No concerns reported THRIVE Score: 0 KAYLEE-7 AMB Questionnaire KAYLEE-7 Date KAYLEE - 7 assessed: 05/14/24 Source: Developed by Drs. Evelio Hernández, Latasha Ponce, Elian Mckeon and colleagues, with an educational rahel from [employer] Review of Systems Const All systems reviewed & are unremarkable except as noted in HPI and below Eyes Reports no additional complaints ENT Reports no additional complaints Card Reports no additional complaints Resp Reports no additional complaints GI Reports no additional complaints Reports no additional complaints Physical exam (Primary Care) Vital Signs: Last Vital Signs Temp 97.7 F 07/26/24 13:54 Pulse 96 07/26/24 13:54 Resp 18 07/26/24 13:54 BP 112/78 07/26/24 13:54 Pulse Ox 97 07/26/24 13:54 Oxygen Delivery Method Room Air 07/26/24 13:54 BMI result Body Mass Index 22.2 Tobacco/Smoking Status: Tobacco use Status Tobacco use date assessed 07/26/24 07/26/24 14:02 Patient Tobacco Use Status Never used Tobacco 07/26/24 13:56 e-Cigarette/Vaping Use Never Used 07/26/24 13:56 Thrive Assessment: Date of Thrive Assessment Date Thrive assessed 05/07/24 07/26/24 13:56 Currently or been in a relationship where the following occur: No concerns reported Const General: no acute distress HENMT Head: Yes normal to inspection General nose exam: Normal external nose present Throat: Yes posterior oropharynx normal Eyes General: appearance normal, both eyes and all related structures Neck Neck: Yes no lymphadenopathy and Yes supple Resp Effort & Inspection: normal respiratory effort Auscultation: clear to auscultation bilaterally Cardio Rhythm: regular rhythm Heart sounds: S1 normal heart sound present and S2 normal heart sound present GI Inspection: Yes normal to inspection Palpation (GI): Soft to palpation Percussion: Yes normal to percussion Auscultation: normal bowel sounds Coding Level of Care Code Est Pt Level 4 (59913) Diagnoses HTN (hypertension) I10 Hyperlipidemia E78.5 Vitamin D deficiency E55.9 Osteoporosis M81.0 Assessment & Plan Assessment & Plan (1) HTN (hypertension): Code(s): I10 - Essential (primary) hypertension Category: Medical Plan: Continue Lisinopril (2) Hyperlipidemia: Comment: Tolerating crestor Code(s): E78.5 - Hyperlipidemia, unspecified Category: Medical Plan: Continue statin, follow-up in 6 months with a fasting labs before (3) Vitamin D deficiency: Code(s): E55.9 - Vitamin D deficiency, unspecified Category: Medical Plan: Continue vitamin-D supplement (4) Osteoporosis: Comment: DEXA T score - 2.8, 01/28 , unchanged 01/30 on vit D , pt declined treatment Code(s): M81.0 - Age-related osteoporosis without current pathological fracture Category: Medical Plan: Continue vitamin-D and calcium supplement weight-bearing exercises repeat DEXA in January Orders: Orders Lipid Panel 6 Months E55.9 - Vitamin D deficiency, unspecified, E78.5 - Hyperlipidemia, unspecified, I10 - Essential (primary) hypertension, Z00.00 - Encounter for general adult medical examination without abnormal findings Complete Blood Count Auto Diff 6 Months E55.9 - Vitamin D deficiency, unspecified, E78.5 - Hyperlipidemia, unspecified, I10 - Essential (primary) hypertension, Z00.00 - Encounter for general adult medical examination without abnormal findings Comprehensive [place]. Panel Fast 6 Months E55.9 - Vitamin D deficiency, unspecified, E78.5 - Hyperlipidemia, unspecified, I10 - Essential (primary) hypertension, Z00.00 - Encounter for general adult medical examination without abnormal findings Vitamin D 25-OH Total 6 Months E55.9 - Vitamin D deficiency, unspecified, E78.5 - Hyperlipidemia, unspecified, I10 - Essential (primary) hypertension, Z00.00 - Encounter for general adult medical examination without abnormal findings Hemoglobin A1c 6 Months E55.9 - Vitamin D deficiency, unspecified, E78.5 - Hyperlipidemia, unspecified, I10 - Essential (primary) hypertension, Z00.00 - Encounter for general adult medical examination without abnormal findings Medications: Refilled rosuvastatin 10 mg PO DAILY 90 tabs 3RF lisinopril 5 mg PO DAILY 90 tabs 3RF omeprazole 20 mg PO BID 180 caps 3RF tolterodine ER 4 mg PO DAILY 90 caps 3RF
== END 2024-07-26 14:47 | disposition home or self-care (01) ==
LOC: HO.HMCC 13:36
PROVIDERS: PCP Internal Medicine; Visit Provider Internal Medicine
DX: I10 Essential (primary) hypertension (principal); E78.5 Hyperlipidemia, unspecified; E55.9 Vitamin D deficiency, unspecified; M81.0 Age-related osteoporosis without current pathological fracture

== ENCOUNTER → 2024-07-26 13:35 | Outpatient (BNVA) | payer MEDICARE, SELFPAY | PROVIDERS: PCP Internal Medicine; Visit Provider Internal Medicine | DX: I10 Essential (primary) hypertension (principal); E78.5 Hyperlipidemia, unspecified; E55.9 Vitamin D deficiency, unspecified; M81.0 Age-related osteoporosis without current pathological fracture; Z79.899 Other long term (current) drug therapy | CPT/HCPCS: 99212 ==

== ENCOUNTER 2024-08-11 07:29 | Outpatient (REF) | payer MEDICARE, SELFPAY | END 2024-08-11 07:30 | disposition home or self-care (01) | LOC: HO.MAMMO 07:29 | PROVIDERS: PCP Internal Medicine; Visit Provider Internal Medicine | DX: Z12.31 Encounter for screening mammogram for malignant neoplasm of breast (principal) | CPT/HCPCS: 77063; 77067 ==

== ENCOUNTER → 2024-08-11 07:30 | Outpatient (BNV) | payer MEDICARE, SELFPAY | PROVIDERS: PCP Internal Medicine; Visit Provider Internal Medicine | DX: Z12.31 Encounter for screening mammogram for malignant neoplasm of breast (principal) | CPT/HCPCS: 77063; 77067 ==

== ENCOUNTER 2024-12-10 11:23 | Outpatient (AMB) | payer MEDICARE, SELFPAY ==
--- OUTSIDE RECORDS SUMMARY | 2024-02-17 10:00 | XMS_ITS ---
Author Organization [facility] Address [address] [place] [phone] Care Team Providers Care Transportation Driver Name Role Phone Lori WILKINS, Sherie Primary Care Provider Unavaila Eulalia Fraga Unavailable [phone] Mariusz Davidson Unavailable [phone] Encounters Encounter Location Date Provider Diagnosis [address] [address] 02/17/2024 Mariusz Davidson Plan Of Treatment No Information Progress Notes * Ann ROSALES GDOB:1950 (74 yo M)Acc No.[id number]:02/17/2024 Progress Notes Patient: Ann ESPINOZA Provider: Lena Davidson DPM :1950 A ge:73 Y S ex:Male Date:02/17/2024 Address:[address] [place], [place] [id number] Pcp:Sherie Sandoval MD Subjective: * Chief Complaints: * * Medical History: Objective: * Vitals: Assessment: Plan: * Treatment: * Images: * The named appointment provid er may or may not be the originator of this progress note, and it is not deemed complete until electronically signed by the appointment provider. Sign off status: Pending * Provider: Lena Davidson DPM Date: 1 04/19/2023 Generated for Gurvinderi ng/Facaityg/eTransmitting on: 12:33 PM EDT
--- OUTSIDE RECORDS SUMMARY | 2024-04-15 10:00 | XMS_ITS ---
Author Organization [facility] Address [address] [place] [address] Care Team Providers Care Cycle Director Name Role Phone Sherie Sandoval MD Primary Care Provider Unavaila Eulalia Fraga Unavailable [phone] Rupinder Beyer Unavailable [phone] Allergies Allergen (clinical drug ingredient) Drug/Non Drug [...] Negative Encounters Encounter Location Date [facility] [address] [place] [address] 04/15/2024 Rupinder Pepito Plan Of Treatment No Information Progress Notes * Ann ROSALES GDOB:1950 (74 yo M)Acc No.[id number]:04/15/2024 Progress Notes Patient: Ann ESPINOZA Provider: Kin Beyer DPM :1950 A ge:73 Y S ex:Male Date:04/15/2024 Address:[address] [place] [address], [facility] Pcp:Sherie Sandoval MD Subjective: * Chief Complaints: [...] enies. C ardiovascular: Pacemaker d enies. M PREVOCATIONAL/REHABILITATION COUNSELOR d enies. W PW d enies. C [...] Children: yes, 1. Marital status: . 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 D rug/Alcohol: A PRINCESS-C (Standard) D id [...] 0 04/15/2024 Generated for Rogelio Wilhelm/Olya on: 12:33 PM EDT
[2024-12-10 11:29] VITALS: BP 134/84; PULSE 85; RESP 18; TEMP 36.6; O2SAT 96; BMI 21.4
--- NOTE | 2024-12-10 11:29 | MHC.PC.OV ---
Vital Signs 12/10/24 11:29 Height 4 ft 11 in Weight 106 lb BMI 21.4 BP 134/84 Blood Pressure Location Lt brachial Position Sitting Respiration 18 Pulse 85 Pulse Source Pulse Oximeter Temp 97.8 F Temp Source Oral Pulse Oximetry (%) 96 Oxygen Delivery Method Room Air Intake Visit Reasons: Back pain Intake Note: Pt is here today for a sick visit. Pt c/o lower back pain sciatic pain. Allergies carrot (CARROT) Allergy (Unknown, Verified 12/10/24 11:46) CAME BACK + IN TESTING - ABLE TO EAT THEM egg (EGG) Allergy (Unknown, Verified 12/10/24 11:46) DIARRHEA petrolatum,white (From Petroleum Jelly) Allergy (Unknown, Verified 12/10/24 11:46) SKIN FELT LIKE IT WAS ON FIRE erythromycin base Allergy (Verified 12/10/24 11:46) Unknown latex Allergy (Verified 12/10/24 11:46) rash Sfeyghk-USG-EsZ Reductase Inhibitor Adverse Reaction (Intermediate, Verified 12/10/24 11:46) leg pain ENVIRONMENTAL Allergy (Unknown, Uncoded 12/10/24 11:46) ITCHY EYES percocet Allergy (Unknown, Uncoded 12/10/24 11:46) Itching Tobacco use date assessed: 12/10/24 Fall risk assessment: No Falls in past year Last assessed Fall Risk: 12/10/24 Dental Screening Dental Screen Date: 05/14/24 HPI Back pain HPI Details Pt presents for HTN, hyperlipid, stable on meds. Pt c/o lower back pain after sitting for a long time on hard chair a week ago. Patient denies any radiation of pain to extremities change in bowel or bladder function. She is lying to [place] next week to go on a river cruise. [facility] Medical History Osteoporosis Vitamin D deficiency Postmenopausal Normal breast exam Dysplastic nevus GERD (gastroesophageal reflux disease) HTN (hypertension) Hyperlipidemia Annual physical exam Surgical History H/O colonoscopy Family History Father Heart problem Mother Hypertension Dementia Social History (Reviewed 12/10/24 @ 11:48 by DMITRY Pressley Housing: House Alcohol intake: never Patient Tobacco Use Status: Never used Tobacco e-Cigarette/Vaping Use: Never Used service: No Current occupational status: employed Cognitive needs: No Hearing needs: No Vision needs: Yes Questionnaire PHQ-9 Over the last 2 weeks, how often have you been bothered by any of the following problems? 1. Little interest or pleasure in doing things: not at all 2. Feeling down, depressed, or hopeless: not at all 3. Trouble falling or staying asleep, or sleeping too much: several days 4. Feeling tired or having little energy: not at all 5. Poor appetite or overeating: not at all 6. Feeling bad about yourself - or that you are a failure or have let yourself or your family down: not at all 7. Trouble concentrating on things, such as reading the newspaper or watching television: not at all 8. Moving or speaking so slowly that other people could have noticed. Or the opposite - being so fidgety or restless that you have been moving around a lot more than usual: not at all 9. Thoughts that you would be better off or of hurting yourself in some way: not at all Total score: 1 Depression Screening Interpretation: Negative Depression Screening Done: Yes Source: Developed by Drs. Evelio Hernández, Latasha Ponce, Elian Mckeon and colleagues, with an educational rahel from [employer]. Thrive Questionnaire Date Thrive assessed: 05/07/24 I am a: Patient What is your living situation today?: I have a steady place to live Within the past 12 months, did the food you bought not last and you didn't have the money to get more?: Never true Within the past 12 months, did you worry whether your food would run out before you got money to buy more?: Never true Do you have trouble paying for medicines?: No Do you have trouble getting transportation to medical appointments?: No Do you have trouble paying your heating and electricity bill?: No Do you have trouble taking care of your child, family member or friend?: No Do you have trouble with day-to-day activities such as bathing, preparing meals, shopping, managing finances, etc.?: No Are you currently unemployed and looking for a job?: No Are you interested in more education?: No Please select the resources that you would like help with: None Currently or been in a relationship where the following occur: No concerns reported THRIVE Score: 0 KAYLEE-7 AMB Questionnaire KAYLEE-7 Date KAYLEE - 7 assessed: 05/14/24 Feeling nervous, anxious, or on edge: 0 = Not at all Not being able to stop or control worryin = Not at all Worrying too much about different things: 0 = Not at all Trouble relaxin = Not at all Being so restless that it is hard to sit still: 0 = Not at all Becoming easily annoyed or irritable: 0 = Not at all Feeling afraid as if something awful might happen: 0 = Not at all Total KAYLEE-7 score (0-4 normal; 5-9 mild; 10-14 moderate; 15-21 severe): 0 Source: Developed by Drs. Evelio Hernández, Latasha Ponce, Elian Mckeon and colleagues, with an educational rahel from [employer]. Review of Systems Const All systems reviewed & are unremarkable except as noted in HPI and below Eyes Reports no additional complaints ENT Reports no additional complaints Card Reports no additional complaints Resp Reports no additional complaints GI Reports no additional complaints Reports no additional complaints Physical exam (Primary Care) Vital Signs: Last Vital Signs Temp 97.8 F 12/10/24 11:29 Pulse 85 12/10/24 11:29 Resp 18 12/10/24 11:29 BP 134/84 12/10/24 11:29 Pulse Ox 96 12/10/24 11:29 Oxygen Delivery Method Room Air 12/10/24 11:29 BMI result Body Mass Index 21.4 Tobacco/Smoking Status: Tobacco use Status Tobacco use date assessed 12/10/24 12/10/24 11:49 Patient Tobacco Use Status Never used Tobacco 12/10/24 11:49 e-Cigarette/Vaping Use Never Used 12/10/24 11:29 PHQ-9: PHQ-9 Score PHQ-9: Total score 1 12/10/24 11:49 Depression Screening Interpretation: Negative Thrive Assessment: Date of Thrive Assessment Date Thrive assessed 05/07/24 12/10/24 11:29 Currently or been in a relationship where the following occur: No concerns reported Const General: no acute distress Eyes General: appearance normal, both eyes and all related structures Neck Neck: Yes no lymphadenopathy and Yes supple Resp Effort & Inspection: normal respiratory effort Auscultation: clear to auscultation bilaterally Cardio Rhythm: regular rhythm Heart sounds: S1 normal heart sound present and S2 normal heart sound present Back/Spine/Pelvis Other: Paraspinal tenderness lower lumbar region left more than right, straight leg rising 90 degrees bilaterally Coding Level of Care Code Est Pt Level 3 (02008) Diagnoses HTN (hypertension) I10 Lower back pain M54.50 Assessment & Plan Assessment & Plan (1) HTN (hypertension): Code(s): I10 - Essential (primary) hypertension Category: Medical Plan: Continue Lisinopril (2) Lower back pain: Code(s): M54.50 - Low back pain, unspecified Category: Medical Plan: Continue lower back exercises and naproxen as needed
--- OUTSIDE RECORDS SUMMARY | 2024-12-10 12:33 | XMS_ITS | Patient Health Record ---
Author Organization [facility] anil Shattuck Address [address] [place] [address] Care Team Providers Care Operations Management Trainee Name Role Phone Sherie Sandoval MD Primary Care Provider UnavailEulalia Matute Unavailable [phone] Black, Ivone Unavailable [phone] Mariusz Davidson Unavailable [phone] Rupinder Beyer Unavailable [phone] Allergies Allergen (clinical drug ingredient) Drug/Non Drug [...] Status Risk Notes Problem Acquired hallux valgus (52012449) Hallux valgus (acquired), right foot (M20.11) Active confirmed Chronic- 2nd opinion Problem Ulcer of toe of right foot (disorder) (734812883723 42616) Skin ulcer of toe of right foot, limited to breakdown of skin (L97.511) Active confirmed Vital Signs Blood pressure diastolic 80 mm Hg 06/15/2024 Height 4ft 10.5in in 06/15/2024 Blood pressure systolic 122 mm Hg 06/15/2024 Weight 110 lbs 06/15/2024 BMI 22.6 kg/m2 06/15/2024 Procedures Procedure Date Ordered Date Performed Result Body Sit e 76160- Debride <25 sq cm 06/15/2024 N/A Encounters Encounter Location Date Provider [facility] [address] [place] [address] 06/02/2024 Eulalia Perica Pain in right foot M79.671 ; Hallux valgus (acquired), right foot M20.11 ; Ingrown nail L60.0 ; Pain in right toe(s) M79.674 ; Onychomycosis B35.1 ; Pain in left toe(s) M79.675 and 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 [facility] [address] [place] [address] 06/15/2024 Ivone Black Hallux valgus (acquired), right [...] Treatment Pending Test Test Name Order Date 80298- Debride <25 sq cm 06/15/2024 Insurance Providers Payer Name Payer Address Payer Phone Subscriber Number Group Number Insured Name Patient Relationship to Insured Coverage Start Date Coverage End Date [facility] 65 Medicare Preferred [address] [place] [address] [id number] Ann Saab Self - patient is the insured Medical (General) History Medical History History ICD Code covid-19 Osteoporosis Measles Mumps Chicken pox Shingles Surgical History Surgery Date(Month/Year) hysterectomy 2005 Knee tear right 2011
--- OUTSIDE RECORDS SUMMARY | 2024-12-10 12:34 | XMS_ITS | Patient Health Record ---
Author Organization [facility] Address [address] [place] [address] Care Team Providers Care Clinical Documentation Spec Name Role Phone Sherie Sandoval MD Primary Care Provider Unavaila Evelio Tobias Unavailable [phone] Peewee Najera Unavailable Unavailable Allergies Allergen (clinical [...] Problem Status W/U Status Risk Notes Problem 174278017 Encounter for screening for malignant neoplasm of colon (Z12.11) Active confirmed Problem 633153383 History of adenomatous polyp of colon (Z86.010) Active confirmed Problem 73627411 Change in bowel habits (R19.4) Active confirmed Problem 412228404 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) Active confirmed Problem Diverticular disease of colon (304825160) Diverticulosis of large intestine without perforation or abscess without bleeding (K57.30) Active confirmed Problem 338041898 Gastroesophageal reflux disease without esophagitis (K21.9) Active confirmed Problem 090550994 Screening for co alli cancer (Z12.11) Active confirmed Problem 08007188 Gastric polyps (K31.7) Active confirmed Problem 65407960 Diarrhea, unspecified type (R19.7) Active confirmed Plan [...] Insured Coverage Start Date Coverage End Date [facility] [address] [place] [address] [id number] STEPHANE ROSALES Self - patient is the insured Medical (General) History Medical History History ICD Code HTN Denies DC,DM,CVA,Lung disease,renal dise ase Colonoscopy 02-21-2005- sma ll [...]
== END 2024-12-10 12:13 | disposition home or self-care (01) ==
LOC: HO.HMCC 11:24
PROVIDERS: PCP Internal Medicine; Visit Provider Internal Medicine
DX: I10 Essential (primary) hypertension (principal); M54.50 Low back pain, unspecified

== ENCOUNTER → 2024-12-10 11:23 | Outpatient (BNVA) | payer MEDICARE, SELFPAY | PROVIDERS: PCP Internal Medicine; Visit Provider Internal Medicine | DX: I10 Essential (primary) hypertension (principal); E78.5 Hyperlipidemia, unspecified; Z79.899 Other long term (current) drug therapy; M54.50 Low back pain, unspecified | CPT/HCPCS: 96127; 99212 ==

== ENCOUNTER 2024-12-31 14:03 | Outpatient (AMB) | payer MEDICARE, SELFPAY ==
--- OUTSIDE RECORDS SUMMARY | 2024-02-17 10:00 | XMS_ITS ---
Author Organization [facility] Address [address] [place] [address] Care Team Providers Care Structural Steel Fitter Name Role Phone Lori WILKINS, Sherie Primary Care Provider Unavaila Eulalia Fraga Unavailable [phone] Mariusz Davidson Unavailable [phone] Encounters Encounter Location Date Provider Diagnosis [address] [address] 02/17/2024 Mariusz Davidson Plan Of Treatment No Information Progress Notes * Ann ROSALES GDOB:1950 (74 yo M)Acc No.[id number]:02/17/2024 Progress Notes Patient: Ann ESPINOZA Provider: Lena Davidson DPM :1950 A ge:73 Y S ex:Male Date:02/17/2024 Address:[address] [place], [place] [id number] Pcp:Sherie Sandoval MD Subjective: * Chief Complaints: * * Medical History: Objective: * Vitals: Assessment: Plan: * Treatment: * Images: * The named appointment provid er may or may not be the originator of this progress note, and it is not deemed complete until electronically signed by the appointment provider. Sign off status: Pending * Provider: Lena Davidson DPM Date: 04/19/2023 Generated for Gurvinderi ng/Facaityg/eTransmitting on: 04:04 PM EDT
--- OUTSIDE RECORDS SUMMARY | 2024-04-15 10:00 | XMS_ITS ---
Author Organization [facility] [place] Address [address] [place] [address] Care Team Providers Care Glass Cleaner Name Role Phone Sherie Sandoval MD Primary Care Provider Unavaila Eulalia Fraga Unavailable [phone] Rupinder Beyer Unavailable [phone] Allergies Allergen (clinical drug ingredient) Drug/Non Drug [...] Negative Encounters Encounter Location Date [facility] [address] [place] [address] 04/15/2024 Rupinder Pepito Plan Of Treatment No Information Progress Notes * Ann ROSALES GDOB:1950 (74 yo M)Acc No.[id number]:04/15/2024 Progress Notes Patient: Ann ESPINOZA Provider: Kin Beyer DPM :1950 A ge:73 Y S ex:Male Date:04/15/2024 Address:[address] [place] [address], [facility] Pcp:Sherie Sandoval MD Subjective: * Chief Complaints: [...] enies. C ardiovascular: Pacemaker d enies. M LUBRICATION EQUIPMENT SERVICER d enies. W PW d enies. C [...] Children: yes, 1. Marital status: . 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 D rug/Alcohol: A PRINCESS-C (Standard) D id [...] 0 04/15/2024 Generated for Rogelio Wilhelm/Olya on: 04:04 PM EDT
[2024-12-31 14:07] VITALS: BP 134/80; PULSE 94; RESP 17; TEMP 36.4; O2SAT 98; BMI 22.2
--- NOTE | 2024-12-31 14:07 | MHC.PC.OV ---
Vital Signs 12/31/24 14:07 Height 4 ft 11 in Weight 110 lb BMI 22.2 BP 134/80 Blood Pressure Location Lt brachial Position Sitting Respiration 17 Pulse 94 Pulse Source Pulse Oximeter Temp 97.5 F Temp Source Oral Pulse Oximetry (%) 98 Oxygen Delivery Method Room Air Intake Visit Reasons: Right breast pain, s/p fall Intake Note: Pt is here today for a sick visit. Pt states that she fell on the R side. Pt also states that she has a cold cough, congestion. Allergies carrot (CARROT) Allergy (Unknown, Verified 12/10/24 11:46) CAME BACK + IN TESTING - ABLE TO EAT THEM egg (EGG) Allergy (Unknown, Verified 12/10/24 11:46) DIARRHEA petrolatum,white (From Petroleum Jelly) Allergy (Unknown, Verified 12/10/24 11:46) SKIN FELT LIKE IT WAS ON FIRE erythromycin base Allergy (Verified 12/10/24 11:46) Unknown latex Allergy (Verified 12/10/24 11:46) rash Ugzzhmz-JMQ-IgP Reductase Inhibitor Adverse Reaction (Intermediate, Verified 12/10/24 11:46) leg pain ENVIRONMENTAL Allergy (Unknown, Uncoded 12/10/24 11:46) ITCHY EYES percocet Allergy (Unknown, Uncoded 12/10/24 11:46) Itching Tobacco use date assessed: 12/10/24 Fall risk assessment: 1 Fall in past year Last assessed Fall Risk: 12/31/24 Dental Screening Dental Screen Date: 05/14/24 HPI Right breast pain, s/p fall HPI Details Pt tripped and fell down hitting the right side of her body 2 weeks ago. Patient reports persistent tenderness in the right breast. She never developed any bruises over her breast. Patient has not been feeling any lumps in the breast. [facility] Medical History Osteoporosis Vitamin D deficiency Postmenopausal Normal breast exam Dysplastic nevus GERD (gastroesophageal reflux disease) HTN (hypertension) Hyperlipidemia Annual physical exam Surgical History H/O colonoscopy Family History Father Heart problem Mother Hypertension Dementia Social History (Reviewed 12/10/24 @ 11:48 by DMITRY Pressley Housing: House Alcohol intake: never Patient Tobacco Use Status: Never used Tobacco e-Cigarette/Vaping Use: Never Used service: No Current occupational status: employed Cognitive needs: No Hearing needs: No Vision needs: Yes Questionnaire Thrive Questionnaire Date Thrive assessed: 05/07/24 I am a: Patient What is your living situation today?: I have a steady place to live Within the past 12 months, did the food you bought not last and you didn't have the money to get more?: Never true Within the past 12 months, did you worry whether your food would run out before you got money to buy more?: Never true Do you have trouble paying for medicines?: No Do you have trouble getting transportation to medical appointments?: No Do you have trouble paying your heating and electricity bill?: No Do you have trouble taking care of your child, family member or friend?: No Do you have trouble with day-to-day activities such as bathing, preparing meals, shopping, managing finances, etc.?: No Are you currently unemployed and looking for a job?: No Are you interested in more education?: No Please select the resources that you would like help with: None Currently or been in a relationship where the following occur: No concerns reported THRIVE Score: 0 KAYLEE-7 AMB Questionnaire KAYLEE-7 Date KAYLEE - 7 assessed: 05/14/24 Source: Developed by Drs. Evelio Hernández, Latasha Ponce, Elian Mckeon and colleagues, with an educational rahel from [employer] Review of Systems Const All systems reviewed & are unremarkable except as noted in HPI and below Eyes Reports no additional complaints ENT Reports no additional complaints Card Reports no additional complaints Resp Reports no additional complaints GI Reports no additional complaints Reports no additional complaints Physical exam (Primary Care) Vital Signs: Last Vital Signs Temp 97.5 F 12/31/24 14:07 Pulse 94 12/31/24 14:07 Resp 17 12/31/24 14:07 BP 134/80 12/31/24 14:07 Pulse Ox 98 12/31/24 14:07 Oxygen Delivery Method Room Air 12/31/24 14:07 BMI result Body Mass Index 22.2 Tobacco/Smoking Status: Tobacco use Status Tobacco use date assessed 12/10/24 12/31/24 14:13 Patient Tobacco Use Status Never used Tobacco 12/31/24 14:13 e-Cigarette/Vaping Use Never Used 12/31/24 14:13 Thrive Assessment: Date of Thrive Assessment Date Thrive assessed 05/07/24 12/31/24 14:13 Currently or been in a relationship where the following occur: No concerns reported Const General: no acute distress HENMT Head: Yes normal to inspection Eyes General: appearance normal, both eyes and all related structures Chest Breast/axilla inspection: normal inspection of the breasts Breast/axilla palpation: normal palpation of the breasts and normal palpation of the axillae Resp Effort & Inspection: normal respiratory effort Auscultation: clear to auscultation bilaterally Cardio Rhythm: regular rhythm Heart sounds: S1 normal heart sound present and S2 normal heart sound present GI Inspection: Yes normal to inspection Palpation (GI): Soft to palpation Percussion: Yes normal to percussion Auscultation: normal bowel sounds Coding Level of Care Code Est Pt Level 4 (61384) Diagnoses Contusion of breast, right S20.01XA HTN (hypertension) I10 Assessment & Plan Assessment & Plan (1) Contusion of breast, right: Code(s): S20.01XA - Contusion of right breast, initial encounter Category: Medical Plan: Patient reassured (2) HTN (hypertension): Code(s): I10 - Essential (primary) hypertension Category: Medical Plan: Continue current medications
--- OUTSIDE RECORDS SUMMARY | 2024-12-31 16:05 | XMS_ITS | Patient Health Record ---
Author Organization [facility] Address [address] [place] [address] Care Team Providers Care Entry Specialists Name Role Phone Sherie Sandoval MD Primary Care Provider Unavaila Evelio Tobias Unavailable [phone] Peewee Najera Unavailable Unavailable Allergies Allergen (clinical [...] Problem Status W/U Status Risk Notes Problem Screening for malignant neoplasm of colon (294326775) Encounter for screening for malignant neoplasm of colon (Z12.11) Active confirmed Problem History of adenomatous polyp of colon (973328325) History of adenomatous polyp of colon (Z86.010) Active confirmed Problem Change in bowel habit (31276576) Change in bowel habits (R19.4) Active confirmed Problem Toxic gastroenteritis (75842701) 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.] Insured Coverage Start Date Coverage End Date [facility] [address] [place] [address] [phone] [id number] STEPHANE ROSALES Self - patient is the insured Medical (General) History Medical History History ICD Code HTN Denies AL,DM,CVA,Lung disease,renal dise ase Colonoscopy 02-21-2005- sma ll [...]
--- OUTSIDE RECORDS SUMMARY | 2024-12-31 16:05 | XMS_ITS | Patient Health Record ---
Author Organization [facility] anil [place] Address [address] [place] [address] Care Team Providers Care Glaciologist Name Role Phone Sherie Sandoval MD Primary Care Provider UnavailEulalia Matute Unavailable [phone] Black, Ivone Unavailable [phone] Mariusz Davidson Unavailable [phone] Rupinder Beyer Unavailable [phone] Allergies Allergen (clinical drug ingredient) Drug/Non Drug [...] Status Risk Notes Problem Acquired hallux valgus (52935778) Hallux valgus (acquired), right foot (M20.11) Active confirmed Chronic- 2nd opinion Problem Ulcer of toe of right foot (disorder) (691240725864 15916) Skin ulcer of toe of right foot, limited to breakdown of skin (L97.511) Active confirmed Vital Signs Blood pressure diastolic 80 mm Hg 06/15/2024 Height 4ft 10.5in in 06/15/2024 Blood pressure systolic 122 mm Hg 06/15/2024 Weight 110 lbs 06/15/2024 BMI 22.6 kg/m2 06/15/2024 Procedures Procedure Date Ordered Date Performed Result Body Sit e 35430- Debride <25 sq cm 06/15/2024 N/A Encounters Encounter Location Date Provider Diagnosis [facility] [address] [place] [address] 06/02/2024 Eulalia Perica Pain in right foot M79.671 ; Hallux valgus (acquired), right foot M20.11 ; Ingrown nail L60.0 ; Pain in right toe(s) M79.674 ; Onychomycosis B35.1 ; Pain in left toe(s) M79.675 and 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 [facility] [place] [address] [place] [address] 06/15/2024 Ivone Black Hallux valgus (acquired), right [...] Treatment Pending Test Test Name Order Date 47745- Debride <25 sq cm 06/15/2024 Insurance Providers Payer Name Payer Address Payer Phone Subscriber Number Group Number Insured Name Patient Relationship to Insured Coverage Start Date Coverage End Date [facility] 65 Medicare Preferred [address] [place] [address] [id number] Ann Saab Self - patient is the insured Medical (General) History Medical History History ICD Code covid-19 Osteoporosis Measles Mumps Chicken pox Shingles Surgical History Surgery Date(Month/Year) hysterectomy 2005 Knee tear right 2011
== END 2024-12-31 14:41 | disposition home or self-care (01) ==
LOC: HO.HMCC 14:04
PROVIDERS: PCP Internal Medicine; Visit Provider Internal Medicine
DX: S20.01XA Contusion of right breast, initial encounter (principal); I10 Essential (primary) hypertension

== ENCOUNTER → 2024-12-31 14:03 | Outpatient (BNVA) | payer MEDICARE, SELFPAY | PROVIDERS: PCP Internal Medicine; Visit Provider Internal Medicine | DX: N64.4 Mastodynia (principal); I10 Essential (primary) hypertension; S20.01XA Contusion of right breast, initial encounter; W19.XXXA Unspecified fall, initial encounter; Y93.9 Activity, unspecified; Y92.9 Unspecified place or not applicable; Y99.9 Unspecified external cause status | CPT/HCPCS: 99212 ==

== ENCOUNTER 2025-01-21 06:02 | Outpatient (REF) | payer MEDICARE, SELFPAY ==
--- OUTSIDE RECORDS SUMMARY | 2024-02-17 09:00 | XMS_ITS ---
Author Organization [facility] Address [address] [place] [id number] Care Team Providers Care Smeller Name Role Phone Lori WILKINS, Sherie Primary Care Provider Unavaila Eulalia Fraga Unavailable [phone] Mariusz Davidson Unavailable [phone] Encounters Encounter Location Date Provider Diagnosis [address] [address] 02/17/2024 Mariusz Davidson Plan Of Treatment No Information Progress Notes * Ann ROSALES GDOB:1950 (74 yo M)Acc No.[id number]:02/17/2024 Progress Notes Patient: Ann ESPINOZA Provider: Lena Davidson DPM :1950 A ge:73 Y S ex:Male Date:02/17/2024 Address:[address] [place], [place] [id number] Pcp:Sherie Sandoval MD Subjective: * Chief Complaints: * * Medical History: Objective: * Vitals: Assessment: Plan: * Treatment: * Images: * The named appointment provid er may or may not be the originator of this progress note, and it is not deemed complete until electronically signed by the appointment provider. Sign off status: Pending * Provider: Lena Davidson DPM Date: 04/19/2023 Generated for Rogelio pedraza/Elfego/eTransmitting on: 03/23/2024 06:06 AM EST
--- OUTSIDE RECORDS SUMMARY | 2024-04-15 09:00 | XMS_ITS ---
Author Organization [facility] [place] Address [address] [place] [address] Care Team Providers Care Education Research Analyst Name Role Phone Sherie Sandoval MD Primary Care Provider Unavaila Eulalia Fraga Unavailable [phone] Rupinder Beyer Unavailable [phone] Allergies Allergen (clinical drug ingredient) Drug/Non Drug Allergy documented on EMR Reaction Allergy Type Onset Date Status Latex Latex Rash Allergy Active REASON FOR VISIT Dr Jack Medications Medication SIG (Take, Route, Frequency, Duration) Notes Start Date End Date Status Tolterodine Tartrate ER 4 MG 1 capsule Orally Once a day Active Omeprazole 20 MG 1 capsule 1/2 to 1 h our before morning meal Orally Once a day Active Lisinopril 5 MG 2 tablets Orally Onc e a day Active Rosuvastatin Calcium 20 MG 1 tablet Oral ly Once a day Active Vitamin D3 125 MCG (5000 UT) 1 capsule Orally Once a day Active Fish Oil 1000 MG 1 capsule Orally Thr ee times a day Active Magnesium 400 MG as directed Orally Active Qunol CoQ10/Ubiquinol/Mumtaz Active Social History Tobacco Use: Social History Observation Description Date Details (start date - stop date) Never Smoker NA - NA Tobacco use other than smoking: Question Answer Notes Are you an other tobacco user? No Tobacco Control (Standard) Question Answer Notes Tobacco use: Nonsmoker Additional Findings: Tobacco non-user Current no nsmoker AUDIT-C (Standard) Question Answer Notes Did you have a drink containing alcohol in the p ast year? No Points 0 Interpretation Negative Encounters Encounter Location Date [facility] [address] [place] [address] 04/15/2024 Rupinder Pepito Plan Of Treatment No Information Progress Notes * Ann ROSALES GDOB:1950 (74 yo M)Acc No.[id number]:04/15/2024 Progress Notes Patient: Ann ESPINOZA Provider: Kin Beyer DPM :1950 A ge:73 Y S ex:Male Date:04/15/2024 Address:[address] [place] [address], [facility] Pcp:Sherie Sandoval MD Subjective: * Chief Complaints: * [address] Jack. * ROS: G eneral/Constitutional: Nausea d enies. V omiting d enies. H mayur Thirst d enies. L oss appetite d enies. C hills d enies. F atigue d enies.?Fever d enies. N ight Sweats d enies. U nexplained weight loss d enies. U nexplained weight gain d enies. H EENTM: Dentures d enies. D izziness d enies. G lasses/contacts a dmits. R etinopathy d enies. B lurred/double vision d enies. T MJ?denies. D ischarge/drainage d enies. I mplants d enies. S ore throat d enies. D ental implants d enies. H reina of hearing d enies. D ifficulty chewing/swallowing/speaking d enies. N ose bleeds d enies. S ore mouth d enies. ? R espiratory: On Oxygen d enies. P neumonia/pleurisy d enies.?Bronchitis d enies. E mphysema d enies. C oughing d enies. C ough blood?denies. S hortness of breath d enies. W heezing d enies. C ardiovascular: Pacemaker d enies. M WORKERS COMPENSATION DEFENSE ATTORNEY d enies. W PW d enies. C HF d enies. H eart attack d enies. S eptal defect d enies. R apid beat d enies. C hest pain d enies. A trial Fib. d enies. M urmur/Palpitations d enies. G astrointestinal: Hemorrhoids d enies. S tomach/Abdominal pain d enies. D ark blood stool d enies. I rritable bowel d enies. C onstipation d enies. D iarrhea d enies. H ematology: Swelling d enies. C lots d enies. V aricose Veins a dmits. B ruising d enies. B leeding problem d enies. G enitourinary: Blood urine d enies. F requent/Painfu/urination/bladder control a dmits. K idney stones d enies. I nfection (UTI) d enies. N ephropathy d enies. s ex trans dis (STD) d enies. P rostate d enies. M usculoskeletal: Hammertoes d enies. B unions d enies. B ack Pain d enies. M uscle Cramps/ Resting d enies. M uscle cramps / walking d enies.?Generalized aches and pains a dmits. W eakness d enies. I nteg.: Shanks d enies. S cars d enies. C orns/calluses?denies. I ngrown nails a dmits. P ainful nails d enies. O pen Sores d enies. R ashes d enies. N eurologic: Difficulty sleeping d enies. B rain disorder d enies. N umbness a dmits. B alance trouble d enies. C onfusion d enies. F ainting/blackouts d enies. T ingling d enies. T remors d enies. * Medical History: C ovid-19, Osteoporosis, Measles, Mumps, Chicken pox, Shingles. * Surgical History: h ysterectomy 2005, Knee tear right 2012. * Family History: M other: , high blood pressure, diagnosed with Unspecified essential hypertension.?Father: , cancer,heart attack,poor circulation, diagnosed with Other malignant neoplasm of unspecified site, Unspecified heart disease. S iblings: diagnosed with Diabetic - NIDDM. * Social History: T obacco Use: T obacco use other than smoking A re you an other tobacco user? N o Tobacco Control (Standard) T obacco use: N onsmoker A dditional Findings: Tobacco non-user C urrent nonsmoker D rugs/Alcohol: D rugs H ave you used drugs other than those for medical reasons in the past 12 months? N o M iscellaneous: C affeine: yes, frequency:. Children: yes, 1. Marital status: . 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 D rug/Alcohol: A PRINCESS-C (Standard) D id you have a drink containing alcohol in the past year? N o P oints 0 I nterpretation N egative * Medications: T aking Fish Oil 1000 MG Capsule 1 capsule Orally Three times a day , Taking Qunol CoQ10/Ubiquinol/Mumtaz , Taking Magnesium 400 MG Capsule as directed Orally , Taking Vitamin D3 125 MCG (5000 UT) Capsule 1 capsule Orally Once a day , Taking Rosuvastatin Calcium 20 MG Tablet 1 tablet Orally Once a day , Taking Omeprazole 20 MG Capsule Delayed Release 1 capsule 1/2 to 1 hour before morning meal Orally Once a day , Taking Tolterodine Tartrate ER 4 MG Capsule Extended Release 24 Hour 1 capsule Orally Once a day , Taking Lisinopril 5 MG Tablet 2 tablets Orally Once a day * Allergies: L atex: Rash. Objective: * Vitals: Assessment: Plan: * Treatment: * Images: * The named appointment provid er may or may not be the originator of this progress note, and it is not deemed complete until electronically signed by the appointment provider. Sign off status: Pending * Provider: Kin Beyer DPM Date: 0 04/15/2024 Generated for Rogelio Wilhelm/Olya on: 03/23/2024 06:06 AM EST
--- OUTSIDE RECORDS SUMMARY | 2025-01-21 06:06 | XMS_ITS | Patient Health Record ---
Author Organization [facility] [place] Address [address] [place] [address] Care Team Providers Care Sales Representative Uniforms Name Role Phone Sherie Sandoval MD Primary Care Provider UnavailEulalia Matute Unavailable [phone] Black, Ivone Unavailable [phone] Mariusz Davidson Unavailable [phone] Rupinder Beyer Unavailable [phone] Allergies Allergen (clinical drug ingredient) Drug/Non Drug [...] Status Risk Notes Problem Acquired hallux valgus (53142242) Hallux valgus (acquired), right foot (M20.11) Active confirmed Chronic- 2nd opinion Problem Ulcer of toe of right foot (disorder) (230870881934 90057) Skin ulcer of toe of right foot, limited to breakdown of skin (L97.511) Active confirmed Vital Signs Blood pressure diastolic 80 mm Hg 06/15/2024 Height 4ft 10.5in in 06/15/2024 Blood pressure systolic 122 mm Hg 06/15/2024 Weight 110 lbs 06/15/2024 BMI 22.6 kg/m2 06/15/2024 Procedures Procedure Date Ordered Date Performed Result Body Sit e 28836- Debride <25 sq cm 06/15/2024 N/A Encounters Encounter Location Date Provider Diagnosis [facility] [address] [place] [address] 06/02/2024 Eulalia Perica Pain in right foot M79.671 ; Hallux valgus (acquired), right foot M20.11 ; Ingrown nail L60.0 ; Pain in right toe(s) M79.674 ; Onychomycosis B35.1 ; Pain in left toe(s) M79.675 and 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 [facility] [place] [address] [place] [address] 06/15/2024 Ivone Black Hallux valgus (acquired), right [...] Treatment Pending Test Test Name Order Date 48910- Debride <25 sq cm 06/15/2024 Insurance Providers Payer Name Payer Address Payer Phone Subscriber Number Group Number Insured Name Patient Relationship to Insured Coverage Start Date Coverage End Date [facility] 65 Medicare Preferred [address] [place] [address] [id number] Ann Saab Self - patient is the insured Medical (General) History Medical History History ICD Code covid-19 Osteoporosis Measles Mumps Chicken pox Shingles Surgical History Surgery Date(Month/Year) hysterectomy 2005 Knee tear right 2011
--- OUTSIDE RECORDS SUMMARY | 2025-01-21 06:06 | XMS_ITS | Patient Health Record ---
Author Organization [facility] Address [address] [place] [address] Care Team Providers Care News Director Name Role Phone Sherie Sandoval MD Primary Care Provider Unavaila Evelio Tobias Unavailable [phone] Peewee Najera Unavailable Unavailable Allergies Allergen (clinical [...] Problem Screening for malignant neoplasm of colon (424763755) Encounter for screening for malignant neoplasm of colon (Z12.11) Active confirmed Problem History of adenomatous polyp of colon (351953795) History of adenomatous polyp of colon (Z86.010) Active confirmed Problem Change in bowel habit (03426092) Change in bowel habits (R19.4) Active confirmed Problem Toxic gastroenteritis (84259719) 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.] Insured Coverage Start Date Coverage End Date [facility] [address] [place] [address] [id number] STEPHANE ROSALES Self - patient is the insured Medical (General) History Medical History History ICD Code HTN Denies MD,DM,CVA,Lung disease,renal dise ase Colonoscopy 02-21-2005- sma ll [...]
[2025-01-21 10:16] LABS: MANUAL DIFF FLAG NO
[2025-01-21 10:31] LABS: Hematocrit 43.2 % (37.0-47.0); Hemoglobin 14.7 g/dl (12.0-16.0); Imm Gran Abs Auto 0.01 X10*3/uL (0.00-0.03); Imm Gran Pct Auto 0.2 % (0.0-0.4); Lymphocytes Absolute Auto 1.3 X10*3/uL (1.2-4.9); Mean Corpuscular HGB Conc 34.0 g/dl (31.0-35.0); Mean Corpuscular Hemoglobin 32.7 pg (27.0-33.0); Mean Corpuscular Volume 96.0 fL (80.0-98.0); NRBC Abs Auto 0.000 X10*3/uL (0.0-0.012); NRBC Pct Auto 0.0 /100WBC (0.0-0.2); Platelet Count 193 X10*3/uL (160-400); Red Blood Count 4.50 X10*6/uL (4.20-5.50); White Blood Count 4.7 X10*3/uL (4.8-10.8)
[2025-01-21 11:01] LABS: Alanine Aminotransferase 20 U/L (0-31); Albumin Level 4.6 g/dL (3.5-5.0); Alkaline Phosphatase 72 U/L (39-117); Anion Gap 12 (12-20); Aspartate Amino Transferase 34 U/L (5-31); Blood Urea Nitrogen 16 mg/dL (9-16); Calcium 10.0 mg/dL (8.4-10.2); Carbon Dioxide 31 mmol/L (22-29); Chloride 106 mmol/L (96-108); Cholesterol 162 mg/dL (<200); Estimated Glomerular Filt Rate > 60; HDL Cholesterol 57 mg/dL (>40); Potassium 4.3 mmol/L (3.3-5.1); Sodium 145 mmol/L (135-145); Total Protein 7.0 g/dL (6.5-8.0); Triglycerides 71 mg/dL (<150)
== END 2025-01-21 06:03 | disposition home or self-care (01) ==
LOC: HO.HMGCLDS 06:02
PROVIDERS: PCP Internal Medicine; Visit Provider Internal Medicine
DX: Z00.00 Encounter for general adult medical examination without abnormal findings (principal); Z13.1 Encounter for screening for diabetes mellitus; I10 Essential (primary) hypertension; E78.5 Hyperlipidemia, unspecified; E55.9 Vitamin D deficiency, unspecified
CPT/HCPCS: 36415; 80053; 80061; 82306; 83036; 85025

== ENCOUNTER 2025-01-26 13:03 | Outpatient (AMB) | payer MEDICARE, SELFPAY ==
--- OUTSIDE RECORDS SUMMARY | 2024-02-17 09:00 | XMS_ITS ---
Author Organization [facility] Address [address] [place] [address] Care Team Providers Care Spa Manager Name Role Phone Lori WILKINS, Sherie Primary Care Provider Unavaila Eulalia Fraga Unavailable [phone] Mariusz Davidson Unavailable [phone] Encounters Encounter Location Date Provider Diagnosis [address] [address] 02/17/2024 Mariusz Davidson Plan Of Treatment No Information Progress Notes * Ann ROSALES GDOB:1950 (74 yo M)Acc No.[id number]:02/17/2024 Progress Notes Patient: Ann ESPINOZA Provider: Lena Davidson DPM :1950 A ge:73 Y S ex:Male Date:02/17/2024 Address:[address] [place], [place] [id number] Pcp:Sherie Sandoval MD Subjective: * Chief Complaints: [...] Davidson DPM Date: 04/19/2023 Generated for Rogelio pedraza/Fajamia/eTransmitting on: 03/29/2024 12:56 AM EST
--- OUTSIDE RECORDS SUMMARY | 2024-04-15 09:00 | XMS_ITS ---
Author Organization [facility] Address [address] [place] [address] Care Team Providers Care Portfolio Accountant Name Role Phone Sherie Sandoval MD Primary Care Provider Unavaila Eulalia Fraga Unavailable [phone] Rupinder Beyer Unavailable [phone] Allergies Allergen (clinical drug ingredient) Drug/Non Drug [...] Negative Encounters Encounter Location Date [facility] [address] [place] [address] 04/15/2024 Rupinder Pepito Plan Of Treatment No Information Progress Notes * Ann ROSALES GDOB:1950 (74 yo M)Acc No.[id number]:04/15/2024 Progress Notes Patient: Ann ESPINOZA Provider: Kin Beyer DPM :1950 A ge:73 Y S ex:Male Date:04/15/2024 Address:[address] [place] [address], [facility] Pcp:Sherie Sandoval MD Subjective: * Chief Complaints: [...] enies. C ardiovascular: Pacemaker d enies. M PROFESSOR OF GEOGRAPHY d enies. W PW d enies. C [...] Children: yes, 1. Marital status: . 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 D rug/Alcohol: A PRINCESS-C (Standard) D id [...] 0 04/15/2024 Generated for Rogelio Wilhelm/Olya on: 03/29/2024 12:56 AM EST
[2025-01-26 13:06] VITALS: BP 126/78; PULSE 91; RESP 17; TEMP 36.6; O2SAT 98; BMI 21.8
--- NOTE | 2025-01-26 13:06 | MHC.PC.OV ---
Vital Signs 01/26/25 13:06 Height 4 ft 11 in Weight 108 lb BMI 21.8 BP 126/78 Blood Pressure Location Lt brachial Position Sitting Respiration 17 Pulse 91 Pulse Source Pulse Oximeter Temp 97.9 F Temp Source Oral Pulse Oximetry (%) 98 Oxygen Delivery Method Room Air Intake Visit Reasons: Annual PE Intake Note: Pt is here today for PE. Pt states that her R leg on the back is swollen and painful when standing. Allergies carrot (CARROT) Allergy (Unknown, Verified 01/26/25 13:10) CAME BACK + IN TESTING - ABLE TO EAT THEM egg (EGG) Allergy (Unknown, Verified 01/26/25 13:10) DIARRHEA petrolatum,white (From Petroleum Jelly) Allergy (Unknown, Verified 01/26/25 13:10) SKIN FELT LIKE IT WAS ON FIRE erythromycin base Allergy (Verified 01/26/25 13:10) Unknown latex Allergy (Verified 01/26/25 13:10) rash Ljnkgjc-ZXF-UrF Reductase Inhibitor Adverse Reaction (Intermediate, Verified 01/26/25 13:10) leg pain ENVIRONMENTAL Allergy (Unknown, Uncoded 01/26/25 13:10) ITCHY EYES percocet Allergy (Unknown, Uncoded 01/26/25 13:10) Itching Medication List - Last Reconciled 01/26/25 by Sherie Sandoval MD cholecalciferol (vitamin D3) 25 mcg PO DAILY lisinopril 5 mg PO DAILY naproxen 500 mg PO Q12H PRN omega-3 fatty acids (Fish Oil Concentrate) 1,000 mg PO DAILY omeprazole 20 mg PO BID red yeast rice PO rosuvastatin 10 mg PO DAILY tolterodine ER 4 mg PO DAILY Tobacco use date assessed: 01/26/25 Dental Screening Dental Screen Date: 05/14/24 HPI Annual PE HPI Details Pt presents for PE. Hypertension hyperlipidemia controlled on current medications. Patient will have bladder suspension surgery in March [facility] incontinence [facility] History Osteoporosis Vitamin D deficiency Postmenopausal Normal breast exam Dysplastic nevus GERD (gastroesophageal reflux disease) HTN (hypertension) Hyperlipidemia Annual physical exam Surgical History H/O colonoscopy Family History Father Heart problem Mother Hypertension Dementia Social History Housing: House Alcohol intake: never Patient Tobacco Use Status: Never used Tobacco e-Cigarette/Vaping Use: Never Used service: No Current occupational status: employed Cognitive needs: No Hearing needs: No Vision needs: Yes Questionnaire Thrive Questionnaire Date Thrive assessed: 05/07/24 I am a: Patient What is your living situation today?: I have a steady place to live Within the past 12 months, did the food you bought not last and you didn't have the money to get more?: Never true Within the past 12 months, did you worry whether your food would run out before you got money to buy more?: Never true Do you have trouble paying for medicines?: No Do you have trouble getting transportation to medical appointments?: No Do you have trouble paying your heating and electricity bill?: No Do you have trouble taking care of your child, family member or friend?: No Do you have trouble with day-to-day activities such as bathing, preparing meals, shopping, managing finances, etc.?: No Are you currently unemployed and looking for a job?: No Are you interested in more education?: No Please select the resources that you would like help with: None Currently or been in a relationship where the following occur: No concerns reported THRIVE Score: 0 KAYLEE-7 AMB Questionnaire KAYLEE-7 Date KAYLEE - 7 assessed: 05/14/24 Source: Developed by Drs. Evelio Hernández, Latasha Ponce, Elian Mckeon and colleagues, with an educational rahel from [employer]. Review of Systems Const All systems reviewed & are unremarkable except as noted in HPI and below Eyes Reports no additional complaints ENT Reports no additional complaints Card Reports no additional complaints Resp Reports no additional complaints GI Reports no additional complaints Reports no additional complaints Physical exam (Primary Care) Vital Signs: Last Vital Signs Temp 97.9 F 01/26/25 13:06 Pulse 91 01/26/25 13:06 Resp 17 01/26/25 13:06 BP 126/78 01/26/25 13:06 Pulse Ox 98 01/26/25 13:06 Oxygen Delivery Method Room Air 01/26/25 13:06 BMI result Body Mass Index 21.8 Tobacco/Smoking Status: Tobacco use Status Tobacco use date assessed 01/26/25 01/26/25 13:15 Patient Tobacco Use Status Never used Tobacco 01/26/25 13:07 e-Cigarette/Vaping Use Never Used 01/26/25 13:07 Thrive Assessment: Date of Thrive Assessment Date Thrive assessed 05/07/24 01/26/25 13:07 Currently or been in a relationship where the following occur: No concerns reported Const General: no acute distress HENMT Head: Yes normal to inspection Face and sinus: Yes normal facial exam Mouth: Normal oral and palatal mucosa present Eyes General: appearance normal, both eyes and all related structures Neck Neck: Yes no lymphadenopathy and Yes supple Resp Effort & Inspection: normal respiratory effort Auscultation: clear to auscultation bilaterally Cardio Rhythm: regular rhythm Heart sounds: S1 normal heart sound present and S2 normal heart sound present GI Inspection: Yes normal to inspection Palpation (GI): Soft to palpation Percussion: Yes normal to percussion Auscultation: normal bowel sounds Coding Level of Care Code Est Pt Prev Care >65y(57412) Diagnoses Osteoporosis M81.0 HTN (hypertension) I10 Hyperlipidemia E78.5 Annual physical exam Z00.00 Assessment & Plan Assessment & Plan (1) Osteoporosis: Comment: DEXA T score - 2.8, 01/28 , unchanged 01/30 on vit D , pt declined treatment Code(s): M81.0 - Age-related osteoporosis without current pathological fracture Category: Medical Plan: Continue vitamin-D supplement weight-bearing exercises repeat DEXA (2) HTN (hypertension): Code(s): I10 - Essential (primary) hypertension Category: Medical Plan: Continue lisinopril (3) Hyperlipidemia: Comment: Tolerating crestor Code(s): E78.5 - Hyperlipidemia, unspecified Category: Medical Plan: Continue crestor (4) Annual physical exam: Code(s): Z00.00 - Encounter for general adult medical examination without abnormal findings Category: Medical Plan: Well-balanced diet regular physical activity discussed with the patient. She is up-to-date with the mammogram and DEXA will be scheduled. Patient is up-to-date with colonoscopy. She was advised not to take omeprazole regularly to avoid long-term adverse effects such as kidney failure Orders: Orders XR DEXA axial skeleton Today M81.0 - Age-related osteoporosis without current pathological fracture
--- OUTSIDE RECORDS SUMMARY | 2025-01-27 00:57 | XMS_ITS | Patient Health Record ---
Author Organization [facility] Address [address] [place] [address] Care Team Providers Care General Pediatrician Name Role Phone Sherie Sandoval MD Primary Care Provider Unavaila Evelio Tobias Unavailable [phone] Peewee Najera Unavailable Unavailable Allergies Allergen (clinical drug ingredient) Drug/Non Drug Allergy documented on EMR Reaction Allergy Type Onset Date Status erythromycin Erythromycin Unknown Drug Allergy A ctive Reason For Referral No Information Medications Medication SIG (Take, Route, Frequency, Duration) Notes Start Date End Date Status Detrol Active CoQ-10 200 MG Capsule 1 capsule with a m eal Orally Once a day Active Fish Oil 1200 MG Capsule 1 capsule Orall y Once a day Active Vitamin D Active Lisinopril 5 MG Tablet 1 tablet Orally O nce a day Active Omeprazole 20 MG Capsule Delayed Release 1 capsule Orally Once a day Active Tolterodine Tartrate ER Active Red Yeast Rice 600 MG Tablet 2 Orally qd Active Ezetimibe Active Social History Social History Additional Details Category Social Info Options Details Miscellaneous: Marital status: Section Notes: Nonsmoker; no sig alcohol Nonsmoker; no sig alcohol Nonsmoker; no sig alcohol Problems Problem Type SNOMED Code ICD Code Onset Dates Problem Status W/U Status Risk Notes Problem Screening for malignant neoplasm of colon (791880747) Encounter for screening for malignant neoplasm of colon (Z12.11) Active confirmed Problem History of adenomatous polyp of colon (572632489) History of adenomatous polyp of colon (Z86.010) Active confirmed Problem Change in bowel habit (59713141) Change in bowel habits (R19.4) Active confirmed Problem Toxic gastroenteritis (58445092) 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.] Coverage End Date [facility] [address] [place] [address] [phone] [id number] STEPHANE ROSALES Self - patient is the insured Medical (General) History Medical History History ICD Code HTN Denies [place],DM,CVA,Lung disease,renal dise ase Colonoscopy 02-21-2005- sma ll [...]
--- OUTSIDE RECORDS SUMMARY | 2025-01-27 00:57 | XMS_ITS | Patient Health Record ---
Author Organization [facility] Address [address] [place] [address] Care Team Providers Care Basting Cleaner Name Role Phone Sherie Sandoval MD Primary Care Provider UnavailEulalia Matute Unavailable [phone] Black, Ivone Unavailable [phone] Mariusz Davidson Unavailable [phone] Rupinder Beyer Unavailable [phone] Allergies Allergen (clinical drug ingredient) Drug/Non Drug [...] Status Risk Notes Problem Acquired hallux valgus (39629665) Hallux valgus (acquired), right foot (M20.11) Active confirmed Chronic- 2nd opinion Problem Ulcer of toe of right foot (disorder) (985879282998 80761) Skin ulcer of toe of right foot, limited to breakdown of skin (L97.511) Active confirmed Vital Signs Blood pressure diastolic 80 mm Hg 06/15/2024 Height 4ft 10.5in in 06/15/2024 Blood pressure systolic 122 mm Hg 06/15/2024 Weight 110 lbs 06/15/2024 BMI 22.6 kg/m2 06/15/2024 Procedures Procedure Date Ordered Date Performed Result Body Sit e 13498- Debride <25 sq cm 06/15/2024 N/A Encounters Encounter Location Date Provider [facility] [address] [place] [address] 06/02/2024 Eulalia Perica Pain in right foot M79.671 ; Hallux valgus (acquired), right foot M20.11 ; Ingrown nail L60.0 ; Pain in right toe(s) M79.674 ; Onychomycosis B35.1 ; Pain in left toe(s) M79.675 and 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 [facility] [place] [address] [place] [address] 06/15/2024 Ivone Black Hallux valgus (acquired), right [...] Treatment Pending Test Test Name Order Date 32493- Debride <25 sq cm 06/15/2024 Insurance Providers Payer Name Payer Address Payer Phone Subscriber Number Group Number Insured Name Patient Relationship to Insured Coverage Start Date Coverage End Date [facility] 65 Medicare Preferred [address] [place] [address] [id number] Ann Saab Self - patient is the insured Medical (General) History Medical History History ICD Code covid-19 Osteoporosis Measles Mumps Chicken pox Shingles Surgical History Surgery Date(Month/Year) hysterectomy 2005 Knee tear right 2011
== END 2025-01-26 14:21 | disposition home or self-care (01) ==
LOC: HO.HMCC 13:04
PROVIDERS: PCP Internal Medicine; Visit Provider Internal Medicine
DX: Z00.00 Encounter for general adult medical examination without abnormal findings (principal); M81.0 Age-related osteoporosis without current pathological fracture; I10 Essential (primary) hypertension; E78.5 Hyperlipidemia, unspecified

== ENCOUNTER → 2025-01-26 13:03 | Outpatient (BNVA) | payer MEDICARE, SELFPAY | PROVIDERS: PCP Internal Medicine; Visit Provider Internal Medicine | DX: Z00.00 Encounter for general adult medical examination without abnormal findings (principal); M81.0 Age-related osteoporosis without current pathological fracture; I10 Essential (primary) hypertension; E78.5 Hyperlipidemia, unspecified | CPT/HCPCS: 99397 ==